=== PATIENT | female | born 1995 | race African-American/Black ===

== ENCOUNTER 2021-08-17 07:56 | Outpatient (REF) | payer OTHER, SELFPAY ==
[2021-08-17 09:41] LABS: MANUAL DIFF FLAG NO
[2021-08-17 10:08] LABS: Basophils Absolute Auto 0.1 X10*3/uL (0.0-0.2); Basophils Percent Auto 1.2 % (0-2); Eosinophils Absolute Auto 0.2 X10*3/uL (0.0-0.4); Eosinophils Percent Auto 3.7 % (0-4); Hematocrit 38.6 % (37.0-47.0); Hemoglobin 12.2 g/dl (12.0-16.0); Lymphocytes Percent Auto 49.6 % (20-40); Mean Corpuscular HGB Conc 31.6 g/dl (31.0-35.0); Mean Corpuscular Hemoglobin 26.9 pg (27.0-33.0); Mean Corpuscular Volume 85.2 fL (80.0-98.0); Mean Platelet Volume 9.3 fL (9.4-12.3); Monocytes Absolute Auto 0.3 X10*3/uL (0.1-1.2); Monocytes Percent Auto 8.2 % (2-11); Neutrophils Absolute Auto 1.5 x10*3/uL (2.0-8.3); Neutrophils Percent Auto 37.3 % (45-73); Platelet Count 295 X10*3/uL (160-400); Red Blood Count 4.53 X10*6/uL (4.20-5.50); Red Cell Distribution Width 13.5 % (11.0-16.0)
[2021-08-17 11:01] LABS: C Reactive Protein 1.18 mg/dL (< or = 0.50)
[2021-08-17 11:11] LABS: Erythrocyte Sedimentation Rate 18 MM/HR (0-20)
== END 2021-08-17 07:57 | disposition home or self-care (01) ==
LOC: HO.LAB 07:56
PROVIDERS: PCP Internal Medicine; Visit Provider Internal Medicine Rheumatology
DX: M65.9 Synovitis and tenosynovitis, unspecified (principal); M06.00 Rheumatoid arthritis without rheumatoid factor, unspecified site; Z79.899 Other long term (current) drug therapy
CPT/HCPCS: 36415; 85025; 85652; 86140; 99212

== ENCOUNTER → 2021-12-19 08:05 | Outpatient (BNVA) | payer OTHER, SELFPAY | PROVIDERS: PCP Internal Medicine; Visit Provider Internal Medicine Rheumatology | DX: M06.00 Rheumatoid arthritis without rheumatoid factor, unspecified site (principal); M65.9 Synovitis and tenosynovitis, unspecified; Z79.899 Other long term (current) drug therapy; G93.2 Benign intracranial hypertension | CPT/HCPCS: 20550; 99212 ==

== ENCOUNTER → 2022-06-21 08:36 | Outpatient (BNVA) | payer OTHER, SELFPAY | PROVIDERS: PCP Internal Medicine; Visit Provider Internal Medicine Rheumatology | DX: M06.00 Rheumatoid arthritis without rheumatoid factor, unspecified site (principal); Z79.899 Other long term (current) drug therapy | CPT/HCPCS: 99212 ==

== ENCOUNTER 2022-07-28 13:27 | Outpatient (REF) | payer OTHER, SELFPAY ==
--- NOTE | ~2022-07-28 | XR_ITS ---
EXAMINATION: XR HAND, RIGHT XR HAND, LEFT CLINICAL INFORMATION: Rheumatoid arthritis. COMPARISON: None available for comparison at the time of interpretation. TECHNIQUE: PA, oblique, and lateral views of the right and left hand. FINDINGS: Right Hand: No fracture or dislocation. Normal carpal alignment. No significant joint space narrowing or marginal osteophytes. No osseous erosion. No periarticular osteopenia. No abnormal soft tissue calcification. Left Hand: No fracture or dislocation. Normal carpal alignment. No significant joint space narrowing or marginal osteophytes. No osseous erosion. No periarticular osteopenia. No abnormal soft tissue calcification. XR/XR hand LT min 3V IMPRESSION: Unremarkable examination. No osseous erosion or periarticular osteopenia.
--- NOTE | ~2022-07-28 | XR_ITS ---
EXAMINATION: XR HAND, RIGHT XR HAND, LEFT CLINICAL INFORMATION: Rheumatoid arthritis. COMPARISON: None available for comparison at the time of interpretation. TECHNIQUE: PA, oblique, and lateral views of the right and left hand. FINDINGS: Right Hand: No fracture or dislocation. Normal carpal alignment. No significant joint space narrowing or marginal osteophytes. No osseous erosion. No periarticular osteopenia. No abnormal soft tissue calcification. Left Hand: No fracture or dislocation. Normal carpal alignment. No significant joint space narrowing or marginal osteophytes. No osseous erosion. No periarticular osteopenia. No abnormal soft tissue calcification. XR/XR hand RT min 3V IMPRESSION: Unremarkable examination. No osseous erosion or periarticular osteopenia.
--- NOTE | ~2022-07-28 | XR_ITS ---
EXAMINATION: XR CHEST CLINICAL INFORMATION: Rheumatoid arthritis. COMPARISON: None available. TECHNIQUE: 2 views of the chest were obtained. FINDINGS: The lungs are clear. The cardiomediastinal silhouette is normal in size. There is no pleural effusion or pneumothorax. No acute osseous abnormality. XR/XR chest 2V IMPRESSION: No acute cardiopulmonary findings.
[2022-07-28 13:50] LABS: MANUAL DIFF FLAG NO
[2022-07-28 15:19] LABS: Basophils Percent Auto 0.8 % (0-2); Eosinophils Absolute Auto 0.1 X10*3/uL (0.0-0.4); Eosinophils Percent Auto 3.1 % (0-4); Hematocrit 38.7 % (37.0-47.0); Hemoglobin 12.4 g/dl (12.0-16.0); Lymphocytes Absolute Auto 1.8 X10*3/uL (1.2-4.9); Lymphocytes Percent Auto 47.5 % (20-40); Mean Corpuscular Hemoglobin 27.4 pg (27.0-33.0); Mean Corpuscular Volume 85.6 fL (80.0-98.0); Mean Platelet Volume 9.2 fL (9.4-12.3); Monocytes Absolute Auto 0.3 X10*3/uL (0.1-1.2); Monocytes Percent Auto 7.3 % (2-11); Neutrophils Absolute Auto 1.6 x10*3/uL (2.0-8.3); Neutrophils Percent Auto 41.3 % (45-73); Platelet Count 339 X10*3/uL (160-400); Red Blood Count 4.52 X10*6/uL (4.20-5.50); Red Cell Distribution Width 13.4 % (11.0-16.0); White Blood Count 3.8 X10*3/uL (4.8-10.8)
[2022-07-28 16:20] LABS: Alanine Aminotransferase 26 U/L (0-31); Alkaline Phosphatase 65 U/L (39-117); Anion Gap 15 (12-20); Aspartate Amino Transferase 15 U/L (5-31); Bilirubin Total 0.7 mg/dL (0.0-1.0); Blood Urea Nitrogen 16 mg/dL (9-16); C Reactive Protein 1.57 mg/dL (< or = 0.50); Calcium 9.1 mg/dL (8.4-10.2); Carbon Dioxide 25 mmol/L (22-29); Chloride 105 mmol/L (96-108); Estimated Glomerular Filt Rate > 60; Glucose Random 68 mg/dL (60-115); Potassium 4.8 mmol/L (3.3-5.1); Sodium 140 mmol/L (135-145)
[2022-07-28 17:27] LABS: Erythrocyte Sedimentation Rate 18 MM/HR (0-20)
[2022-07-30 23:58] LABS: TS Negative Control Passed; TS Panel A 0; TS Panel B 0; TS Positive Control Passed; TSpotTB Negative (Negative)
[2022-07-31 11:41] LABS: HBS Num1 63.74 mIU/mL (0-7.99); HBsAGNum1 0.35 S/CO (0.00-0.99); Hepatitis B Core Antibody Nonreactive (Nonreactive); Hepatitis B Surface Antigen Negative (Negative); ~HepC Num1 0.12 S/CO (0.00-0.79); ~Hepatitis A Antibody IgM Nonreactive (Nonreactive); ~Hepatitis B Surface Antibody REACTIVE (Nonreactive); ~Hepatitis C Antibody Nonreactive (Nonreactive)
[2022-08-03 20:39] LABS: Glucose-6-Phosphate Dehydrogen 13.4 U/g Hgb (7.0-20.5)
== END 2022-07-28 13:28 | disposition home or self-care (01) ==
LOC: HO.XRAY 13:27
PROVIDERS: PCP Internal Medicine; Visit Provider Internal Medicine Rheumatology
DX: Z11.1 Encounter for screening for respiratory tuberculosis (principal); M06.00 Rheumatoid arthritis without rheumatoid factor, unspecified site; Z79.899 Other long term (current) drug therapy
CPT/HCPCS: 36415; 71046; 73130; 80053; 82955; 85025; 85652; 86140; 86481; 86704; 86706; 86709; 86803; 87340

== ENCOUNTER → 2022-08-29 11:08 | Outpatient (BNVA) | payer OTHER, SELFPAY | PROVIDERS: PCP Internal Medicine; Visit Provider Internal Medicine Rheumatology | DX: M06.00 Rheumatoid arthritis without rheumatoid factor, unspecified site (principal); Z79.899 Other long term (current) drug therapy | CPT/HCPCS: 99212 ==

== ENCOUNTER 2022-11-06 11:25 | Outpatient (REF) | payer OTHER, SELFPAY ==
[2022-11-06 11:57] LABS: MANUAL DIFF FLAG NO
[2022-11-06 12:13] LABS: Basophils Percent Auto 0.8 % (0-2); Eosinophils Absolute Auto 0.1 X10*3/uL (0.0-0.4); Eosinophils Percent Auto 2.8 % (0-4); Hematocrit 41.6 % (37.0-47.0); Hemoglobin 13.3 g/dl (12.0-16.0); Imm Gran Abs Auto 0.01 X10*3/uL (0.00-0.03); Imm Gran Pct Auto 0.3 % (0.0-0.4); Lymphocytes Absolute Auto 1.8 X10*3/uL (1.2-4.9); Lymphocytes Percent Auto 49.9 % (20-40); Mean Corpuscular Hemoglobin 27.1 pg (27.0-33.0); Mean Corpuscular Volume 84.9 fL (80.0-98.0); Monocytes Absolute Auto 0.3 X10*3/uL (0.1-1.2); Monocytes Percent Auto 7.8 % (2-11); Neutrophils Absolute Auto 1.4 x10*3/uL (2.0-8.3); Neutrophils Percent Auto 38.4 % (45-73); Platelet Count 293 X10*3/uL (160-400); Red Cell Distribution Width 14.1 % (11.0-16.0); White Blood Count 3.6 X10*3/uL (4.8-10.8)
[2022-11-06 13:04] LABS: Erythrocyte Sedimentation Rate 11 MM/HR (0-20)
[2022-11-06 13:06] LABS: Alanine Aminotransferase 31 U/L (0-31); Aspartate Amino Transferase 13 U/L (5-31); C Reactive Protein 0.93 mg/dL (< or = 0.50); Estimated Glomerular Filt Rate > 60
== END 2022-11-06 11:26 | disposition home or self-care (01) ==
LOC: HO.LAB 11:25
PROVIDERS: Visit Provider Internal Medicine Rheumatology
DX: M06.00 Rheumatoid arthritis without rheumatoid factor, unspecified site (principal); Z79.899 Other long term (current) drug therapy
CPT/HCPCS: 36415; 82565; 84450; 84460; 85025; 85652; 86140

== ENCOUNTER → 2022-11-09 10:28 | Outpatient (BNVA) | payer OTHER, SELFPAY | PROVIDERS: PCP Internal Medicine; Visit Provider Internal Medicine Rheumatology | DX: M06.00 Rheumatoid arthritis without rheumatoid factor, unspecified site (principal); Z79.899 Other long term (current) drug therapy | CPT/HCPCS: 99212 ==

== ENCOUNTER 2023-05-01 08:09 | Outpatient (AMB) | payer OTHER, SELFPAY ==
--- NOTE | 2023-05-01 08:12 | A.OFFVIS_ITS ---
Intake Vital Signs 05/01/23 08:18 Height 5 ft 4 in Weight 298 lb 8.094 oz BMI 51.2 BP 110/70 Blood Pressure Location Lt brachial Position Sitting Pulse 84 Pulse Source Pulse Oximeter Temp 97 F Temp Source Skin Pulse Oximetry (%) 99 Oxygen Delivery Method Room Air Intake Visit Reasons: Follow up Intake Note: Patient last seen 11/09/22, presents today for follow up and test results. Reports hand stiffness due to stopping medication during Covid back in January. Has resumed medications since then. 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 Accompanied by: Self / Same As Patient Allergies Penicillins Allergy (Severe, Verified 05/01/23 08:12) Anaphylaxis Medication List - Last Reconciled 05/01/23 by Edgar Pozo MD albuterol sulfate 90 mcg/actuation (Ventolin HFA) inhalation bupropion HCl 150 mg PO DAILY cetirizine (Allergy Relief (cetirizine)) 10 mg PO DAILY PRN dextroamphetamine-amphetamine 5 mg 1 tab PO BID folic acid 1 mg PO DAILY hydroxychloroquine 200 mg PO BID meloxicam 15 mg PO DAILY methotrexate sodium 10 mg (4 x 2.5 mg) PO QWEEK HPI HPI Comments History of Present Illness Details Patient returns for evaluation of her rheumatoid arthritis. Presently she is taking hydroxychloroquine 200 mg b.i.d., meloxicam 15 mg daily, methotrexate 10 mg weekly and folic acid 1 mg daily. Back in late January she developed respiratory symptoms and was diagnosed with COVID. She said she had fairly frequent coughing and nasal congestion. She ended up holding her methotrexate doses for about 3 weeks. While she had the COVID the joints felt quite good but then as the COVID waned she had more joint pain particularly involving stiffness in the hands. There may been some hand swelling. She restarted the methotrexate back in late February. She said her joint symptoms have been improving again but she still has occasional stiffness in the fingers. There is no triggering or numbness in the hands. She did have a flare of her asthma that gave her a continued dry cough but it is improving. She uses of p.r.n. albuterol inhaler at this point. There is no sputum production or shortness of breath. [facility] Medical History Flexor tenosynovitis of finger Flexor tenosynovitis of thumb group home use of drug Seronegative rheumatoid arthritis Surgical History H/O wisdom tooth extraction Family History Mother TTP (thrombotic thrombocytopenic purpura) Father Hypertension Social History Household Members: Significant Other Housing: House Are you a primary special needs child caregiver to a significant other at home: No Do you presently have visiting nurse or other home services: No Alcohol intake: current Alcohol intake frequency: a few times a month Alcohol type: beer and hard liquor e-Cigarette/Vaping Use: Never Used service: No Current occupational status: employed Current occupation: [employer] Review of Systems Const Details: Negative for appetite change, weight change, fever, chills, malaise and fatigue Eyes Details: Negative for vision change, dry eyes,headaches and dizziness ENT Details: Negative for hearing change, tinnitus, oral ulcer, nose bleeds and oral dryness. Card Details: Negative chest pain, edema and syncope Resp Details: Still occasional dry cough but no wheezing. Negative for SOB, sputum production and wheezing GI Details: Some discomfort with pressure on the abdomen but this is a longstanding symptom. Negative indigestion/heartburn, nausea, abdominal pain, bowel changes, diarrhea, constipation and bloody stool. Endo Details: Negative for polyuria and polydypsia Shaheen/Lymph Details: Negative for excessive bruising or bleeding. Physical Exam Vital Signs: Last Vital Signs Temp 97 F 05/01/23 08:18 Pulse 84 05/01/23 08:18 BP 110/70 05/01/23 08:18 Pulse Ox 99 05/01/23 08:18 Oxygen Delivery Method Room Air 05/01/23 08:18 BMI result Body Mass Index 51.2 APPEARANCE: Patient in no acute distress EYES no redness, pupils equal and reactive to light, eyelids normal EARS: External ear normal, canal clear and tympanic membrane normal. NOSE/SINUS: Airflow through both nares, no nasal discharge, no bleeding THROAT: Oral mucosa moist, no ulcerations NECK: No thyromegaly or masses, no adenopathy, trachea midline. HEART: Regulrar rhythm, S1-S2 heard, no murmurs, rubs or gallops. LUNG: Clear to percussion and auscultation EXTREMITIES: No edema, no calf tenderness, normal peripheral pulses. JOINT EXAM: Cervical Spine:? Full range of motion without pain; no tenderness. Thoracic Spine:.? No scoliosis.? No tenderness on palpation. Lumbar Spine:.? Alignment normal.? Full range of motion without pain, no tenderness. Chest Wall:.? No tenderness, swelling, increased warmth or erythema. Hands:? Right:? There is no swelling or MCP tenderness. ? There is flexor tendon tenderness, triggering,or swelling.? There is slight thickening of the 2nd and 3rd PIP joints with no tenderness of the PIP joints.? Left:? No swelling or tenderness in the MCP joints.? There is slight thickening at the 2nd through 4th PIP is without tenderness. Elsewhere there is no triggering, flexor tendon tenderness, soft tissue swelling or tenderness. And 3rd Wrists:? Right:? No pain with flexion or extension at 75 degrees with no tenderness.? No swelling.? Left:Normal pain-free range of motion without tenderness, swelling, increased warmth or erythema. Elbows:. Normal pain-free range of motion without tenderness, swelling, increased warmth or erythema. Shoulders:.?? Full range of motion without pain. No tenderness, weakness, swelling, increased warmth or erythema. Hips:.? Full range of motion without pain. Hip bursa:.? No tenderness. Knees:? Right:?? Normal pain-free range of motion with mild patellofemoral crepitus but no tenderness, effusion, soft tissue swelling, increased warmth or erythema.? Left: No pain with extremes of flexion extension with no tenderness, swelling, effusion or crepitation Ankles:.? Normal pain-free range of motion without tenderness, swelling, increased warmth or erythema. Feet:.? Right:? no tenderness in the instep without swelling.? There is pes planus deformity evident. No other areas of swelling or tenderness.? Left:? Pes planus deformity is evident.? Normal pain-free range of motion without tenderness, swelling, increased warmth or erythema. Tender points:? No tenderness to digital palpation at the occiput, trapezius, second rib, lateral epicondyle, knees, greater trochanter and gluteal area bilaterally. Results Reviewed Results Reviewed: Laboratory Tests 11/06/22 11:56 WBC 3.6 L Hgb 13.3 ESR 11 Creatinine 0.87 AST 13 ALT 31 C-Reactive Protein 0.93 H Assessment & Plan Assessment & Plan (1) Seronegative rheumatoid arthritis: Comment: hydroxychloroquine started fall 2020 - optic nerve swelling seen - ? [facility]? Eye exam stable without toxicity evident May 2022. 07/2022: Methotrexate started Code(s): M06.00 - Rheumatoid arthritis without rheumatoid factor, unspecified site (2) group home use of drug: Code(s): Z79.899 - Other buttermaker continuous churn (current) drug therapy Plan Rheumatoid arthritis with I think good control of synovitis with current treatment. She did have a flare-up, as expected, after she had held the methotrexate for a few weeks but it seems to be improving as she got back on her medication. She does not seem to have any side effects with the meds but she has not had lab work in a number of months. I asked her to get the lab work today. Assuming that is okay we will continue with current treatment. A follow-up in 4 months was recommended. Orders: Orders Aspartate Amino Transferase Today M06.00 - Rheumatoid arthritis without rheumatoid factor, unspecified site, Z79.899 - Other [facility] (current) drug therapy Creatinine Today M06.00 - Rheumatoid arthritis without rheumatoid factor, unspecified site, Z79.899 - Other buttermaker continuous churn (current) drug therapy Erythrocyte Sedimentation Rate 1 Month M06.00 - Rheumatoid arthritis without rheumatoid factor, unspecified site Alanine Aminotransferase Today M06.00 - Rheumatoid arthritis without rheumatoid factor, unspecified site, Z79.899 - Other [facility] (current) drug therapy Aspartate Amino Transferase Today M06.00 - Rheumatoid arthritis without rheumatoid factor, unspecified site, Z79.899 - Other buttermaker continuous churn (current) drug therapy Complete Blood Count Auto Diff 1 Month M06.00 - Rheumatoid arthritis without rheumatoid factor, unspecified site, Z79.899 - Other buttermaker continuous churn (current) drug therapy Erythrocyte Sedimentation Rate Today M06.00 - Rheumatoid arthritis without rheumatoid factor, unspecified site C Reactive Protein Today M06.00 - Rheumatoid arthritis without rheumatoid factor, unspecified site Alanine Aminotransferase Today M06.00 - Rheumatoid arthritis without rheumatoid factor, unspecified site, Z79.899 - Other [facility] (current) drug therapy Complete Blood Count Auto Diff Today M06.00 - Rheumatoid arthritis without rheumatoid factor, unspecified site, Z79.899 - Other buttermaker continuous churn (current) drug therapy C Reactive Protein 1 Month M06.00 - Rheumatoid arthritis without rheumatoid factor, unspecified site Creatinine Today M06.00 - Rheumatoid arthritis without rheumatoid factor, unspecified site, Z79.899 - Other buttermaker continuous churn (current) drug therapy Medications: Refilled hydroxychloroquine 200 mg PO BID 180 tabs 1RF M06.00 - Rheumatoid arthritis without rheumatoid factor, unspecified site folic acid 1 mg PO DAILY 90 tabs 1RF M06.00 - Rheumatoid arthritis without rheumatoid factor, unspecified site Coding Level of Care Code Est Pt Level 3 (53671) Diagnoses Seronegative rheumatoid arthritis M06.00 group home use of drug Z79.899
[2023-05-01 08:18] VITALS: BP 110/70; PULSE 84; TEMP 36.1; O2SAT 99; BMI 51.2
== END 2023-05-01 08:42 | disposition home or self-care (01) ==
PROVIDERS: PCP Internal Medicine; Visit Provider Internal Medicine Rheumatology
DX: M06.00 Rheumatoid arthritis without rheumatoid factor, unspecified site (principal); Z79.899 Other long term (current) drug therapy
CPT/HCPCS: 99213

== ENCOUNTER → 2023-05-01 08:09 | Outpatient (BNVA) | payer OTHER, SELFPAY | PROVIDERS: PCP Internal Medicine; Visit Provider Internal Medicine Rheumatology | DX: M06.00 Rheumatoid arthritis without rheumatoid factor, unspecified site (principal); Z79.899 Other long term (current) drug therapy | CPT/HCPCS: 99212 ==

== ENCOUNTER 2023-05-01 08:51 | Outpatient (REF) | payer OTHER, SELFPAY ==
[2023-05-01 10:48] LABS: MANUAL DIFF FLAG NO
[2023-05-01 10:52] LABS: Basophils Percent Auto 1.2 % (0-2); Eosinophils Percent Auto 6.9 % (0-4); Hematocrit 39.4 % (37.0-47.0); Hemoglobin 12.5 g/dl (12.0-16.0); Lymphocytes Absolute Auto 2.2 X10*3/uL (1.2-4.9); Lymphocytes Percent Auto 53.5 % (20-40); Mean Corpuscular HGB Conc 31.7 g/dl (31.0-35.0); Mean Corpuscular Hemoglobin 27.7 pg (27.0-33.0); Mean Corpuscular Volume 87.2 fL (80.0-98.0); Monocytes Absolute Auto 0.3 X10*3/uL (0.1-1.2); Monocytes Percent Auto 7.7 % (2-11); Neutrophils Absolute Auto 1.2 x10*3/uL (2.0-8.3); Neutrophils Percent Auto 30.7 % (45-73); Platelet Count 293 X10*3/uL (160-400); Red Blood Count 4.52 X10*6/uL (4.20-5.50); Red Cell Distribution Width 13.3 % (11.0-16.0)
[2023-05-01 10:53] LABS: Basophils Absolute Auto 0.1 X10*3/uL (0.0-0.2); Eosinophils Absolute Auto 0.3 X10*3/uL (0.0-0.4)
[2023-05-01 11:07] LABS: Alanine Aminotransferase 26 U/L (0-31); Aspartate Amino Transferase 14 U/L (5-31); C Reactive Protein 0.95 mg/dL (< or = 0.50); Estimated Glomerular Filt Rate > 60
[2023-05-01 11:33] LABS: Erythrocyte Sedimentation Rate 13 MM/HR (0-20)
== END 2023-05-01 08:52 | disposition home or self-care (01) ==
LOC: HO.10HDL 08:51
PROVIDERS: Visit Provider Internal Medicine Rheumatology
DX: M06.00 Rheumatoid arthritis without rheumatoid factor, unspecified site (principal); Z79.899 Other long term (current) drug therapy
CPT/HCPCS: 36415; 82565; 84450; 84460; 85025; 85652; 86140

== ENCOUNTER 2023-07-21 10:55 | Outpatient (REF) | payer OTHER, SELFPAY ==
[2023-07-21 11:12] LABS: MANUAL DIFF FLAG NO
[2023-07-21 11:28] LABS: Basophils Percent Auto 0.9 % (0-2); Eosinophils Absolute Auto 0.1 X10*3/uL (0.0-0.4); Eosinophils Percent Auto 3.7 % (0-4); Hemoglobin 12.5 g/dl (12.0-16.0); Imm Gran Abs Auto 0.01 X10*3/uL (0.00-0.03); Imm Gran Pct Auto 0.3 % (0.0-0.4); Lymphocytes Absolute Auto 1.8 X10*3/uL (1.2-4.9); Lymphocytes Percent Auto 49.9 % (20-40); Mean Corpuscular HGB Conc 32.1 g/dl (31.0-35.0); Mean Corpuscular Hemoglobin 27.8 pg (27.0-33.0); Mean Corpuscular Volume 86.7 fL (80.0-98.0); Mean Platelet Volume 9.3 fL (9.4-12.3); Monocytes Absolute Auto 0.3 X10*3/uL (0.1-1.2); Monocytes Percent Auto 8.3 % (2-11); Neutrophils Absolute Auto 1.3 x10*3/uL (2.0-8.3); Neutrophils Percent Auto 36.9 % (45-73); Platelet Count 290 X10*3/uL (160-400); Red Cell Distribution Width 14.1 % (11.0-16.0); White Blood Count 3.5 X10*3/uL (4.8-10.8)
[2023-07-21 12:07] LABS: Erythrocyte Sedimentation Rate 6 MM/HR (0-20)
[2023-07-21 12:24] LABS: Alanine Aminotransferase 31 U/L (0-31); Aspartate Amino Transferase 14 U/L (5-31); C Reactive Protein 0.54 mg/dL (< or = 0.50); Estimated Glomerular Filt Rate > 60
== END 2023-07-21 10:56 | disposition home or self-care (01) ==
LOC: HO.LAB 10:55
PROVIDERS: PCP Internal Medicine; Visit Provider Internal Medicine Rheumatology
DX: M06.00 Rheumatoid arthritis without rheumatoid factor, unspecified site (principal); Z79.899 Other long term (current) drug therapy
CPT/HCPCS: 36415; 82565; 84450; 84460; 85025; 85652; 86140

== ENCOUNTER 2023-08-02 08:45 | Outpatient (AMB) | payer OTHER, SELFPAY ==
[2023-08-02 08:46] VITALS: BP 122/60; PULSE 68; TEMP 36.5; O2SAT 100; BMI 48.1
--- NOTE | 2023-08-02 08:46 | MHC.OFFVIS ---
Intake Vital Signs 08/02/23 08:46 Height 5 ft 4 in Weight 280 lb 3.32 oz BMI 48.1 BP 122/60 Blood Pressure Location Rt radial Pulse 68 Pulse Source Pulse Oximeter Temp 97.7 F Temp Source Skin Pulse Oximetry (%) 100 Oxygen Delivery Method Room Air Intake Visit Reasons: RA/CONFIRMED Intake Note: Patient last seen 05/01/[address] Pozo, presents today for follow up and test results. Coatings Inspector Required: No Accompanied by: Self / Same As Patient Allergies Penicillins Allergy (Severe, Verified 08/02/23 08:48) Anaphylaxis HPI HPI Comments History of Present Illness Details Ms. Mcclellan 27-year-old female returns for evaluation of her rheumatoid arthritis. 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 She goes to gym in the mornings 5 times a week before she goes to work. Presently she is taking hydroxychloroquine 200 mg b.i.d., meloxicam 15 mg daily, methotrexate 10 mg weekly and folic acid 1 mg daily. She continues with swelling and stiffness to some of her fingers in the mornings. They do get less stiff by the time she gets to the gym usually within 2-3 hours. 05/01/[address] Pozo: Ms. Mcclellan 27-year-old female returns for evaluation of her rheumatoid arthritis. Presently she is taking hydroxychloroquine 200 mg b.i.d., meloxicam 15 mg daily, methotrexate 10 mg weekly and folic acid 1 mg daily. Back in late January she developed respiratory symptoms and was diagnosed with COVID. She said she had fairly frequent coughing and nasal congestion. She ended up holding her methotrexate doses for about 3 weeks. While she had the COVID the joints felt quite good but then as the COVID waned she had more joint pain particularly involving stiffness in the hands. There may been some hand swelling. She restarted the methotrexate back in late February. She said her joint symptoms have been improving again but she still has occasional stiffness in the fingers. There is no triggering or numbness in the hands. She did have a flare of her asthma that gave her a continued dry cough but it is improving. She uses of p.r.n. albuterol inhaler at this point. There is no sputum production or shortness of breath. 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 use of drug Flexor tenosynovitis of thumb Seronegative rheumatoid arthritis Surgical History H/O wisdom tooth extraction Family History Mother TTP (thrombotic thrombocytopenic purpura) Father Hypertension Social History Household Members: Significant Other Housing: House Are you a primary healthcare management to a significant other at home: No Do you presently have visiting nurse or other home services: No 75 years or older and lives alone: No Alcohol intake: current Alcohol intake frequency: a few times a month Alcohol type: beer and hard liquor e-Cigarette/Vaping Use: Never Used service: No Current occupational status: employed 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 NOSE/SINUS: Airflow through both nares, no nasal discharge, no bleeding THROAT: Oral mucosa moist, no ulcerations NECK: No thyromegaly or masses, no adenopathy, trachea midline. HEART: Regulrar rhythm, S1-S2 heard, no murmurs, rubs or gallops. LUNG: Clear to percussion and auscultation EXTREMITIES: No edema, no calf tenderness, normal peripheral pulses. JOINT EXAM: Cervical Spine:? Full range of motion without pain; no tenderness. Thoracic Spine:.? No scoliosis.? No tenderness on palpation. Lumbar Spine:.? Alignment normal.? Full range of motion without pain, no tenderness. Chest Wall:.? No tenderness, swelling, increased warmth or erythema. Hands:? Right:? There is no swelling or MCP tenderness. ? There is flexor tendon tenderness, triggering,or swelling.? There is slight thickening of the 2nd and 3rd PIP joints with no tenderness of the PIP joints.? Left:? No swelling or tenderness in the MCP joints.? There is slight thickening at the 2nd through 4th PIP is without tenderness. Elsewhere there is no triggering, flexor tendon tenderness, soft tissue swelling or tenderness. And 3rd Wrists:? Right:? No pain with flexion or extension at 75 degrees with no tenderness.? No swelling.? Left:Normal pain-free range of motion without tenderness, swelling, increased warmth or erythema. Elbows:. Normal pain-free range of motion without tenderness, swelling, increased warmth or erythema. Shoulders:.?? Full range of motion without pain. No tenderness, weakness, swelling, increased warmth or erythema. Hips:.? Full range of motion without pain. Hip bursa:.? No tenderness. Knees:? Right:?? Normal pain-free range of motion with mild patellofemoral crepitus but no tenderness, effusion, soft tissue swelling, increased warmth or erythema.? Left: No pain with extremes of flexion extension with no tenderness, swelling, effusion or crepitation Ankles:.? Normal pain-free range of motion without tenderness, swelling, increased warmth or erythema. Feet:.? Right:? no tenderness in the instep without swelling.? There is pes planus deformity evident. No other areas of swelling or tenderness.? Left:? Pes planus deformity is evident.? Normal pain-free range of motion without tenderness, swelling, increased warmth or erythema. Tender points:? No tenderness to digital palpation at the occiput, trapezius, second rib, lateral epicondyle, knees, greater trochanter and gluteal area bilaterally. Results Reviewed Results Reviewed: Laboratory Tests 11/06/22 11:56 WBC 3.6 L Hgb 13.3 ESR 11 Creatinine 0.87 AST 13 ALT 31 C-Reactive Protein 0.93 H Laboratory Tests 07/21/23 11:11 WBC 3.5 L RBC 4.50 Hgb 12.5 Hct 39.0 ESR 6 AST 14 ALT 31 C-Reactive Protein 0.54 H Laboratory Tests 05/01/23 05/01/23 07/21/23 09:00 09:00 11:11 WBC 4.0 L RBC 4.52 Hgb 12.5 Hct 39.4 ESR 13 Creatinine 0.86 0.87 Estimated GFR > 60 AST ALT C-Reactive Protein 07/21/23 11:11 WBC RBC Hgb Hct ESR Creatinine Estimated GFR > 60 AST 14 ALT 31 C-Reactive Protein 0.54 H Assessment & Plan Assessment & Plan (1) Seronegative rheumatoid arthritis: Comment: hydroxychloroquine started fall 2020 - optic nerve swelling seen - ? ICH? Eye exam stable without toxicity evident May 2022. 07/2022: Methotrexate started Code(s): M06.00 - Rheumatoid arthritis without rheumatoid factor, unspecified site (2) long term care social worker use of drug: Code(s): Z79.899 - Other long term care social worker (current) drug therapy (3) Flexor tenosynovitis of finger: Code(s): M65.9 - Synovitis and tenosynovitis, unspecified (4) long term care social worker current use of non-steroidal anti-inflammatories (NSAID): Code(s): Z79.1 - long term care social worker (current) use of non-steroidal anti-inflammatories (NSAID) Plan #SeroNeg RA/Flexor Tenosynovitis of fingers:For the Rheumatoid arthritis I think there is room for improvement with current treatment. I will increase her methotrexate to 6 pills from 4 pills and reassess in 4 months if the tenderness and swelling to the hand joints have improved. She does not seem to have any side effects with the meds. We will continue the hydroxychloroquine 200 mg b.i.d. and meloxicam 15 mg daily. #Skilled Nursing Use: We will obtain lab for CBC and CMP 1 week before next visit. Patient knows to hold her methotrexate in the event of fever, infections, surgeries, nonhealing wounds. She is aware of the possible side effects of methotrexate to include but not limited to hair loss, cytopenia, liver toxicity and teratogenicity. The patient denies any plans to get . A follow-up in 4 months I spent 25 minutes reviewing chart, evaluating patient, documenting. Orders: Orders Complete Blood Count Auto Diff Today M06.00 - Rheumatoid arthritis without rheumatoid factor, unspecified site, M65.9 - Synovitis and tenosynovitis, unspecified, Z79.899 - Other [facility] (current) drug therapy Erythrocyte Sedimentation Rate Today M06.00 - Rheumatoid arthritis without rheumatoid factor, unspecified site, M65.9 - Synovitis and tenosynovitis, unspecified, Z79.899 - Other long term care social worker (current) drug therapy Comprehensive Met. Panel Today M06.00 - Rheumatoid arthritis without rheumatoid factor, unspecified site, M65.9 - Synovitis and tenosynovitis, unspecified, Z79.899 - Other [facility] (current) drug therapy C Reactive Protein Today M06.00 - Rheumatoid arthritis without rheumatoid factor, unspecified site, M65.9 - Synovitis and tenosynovitis, unspecified, Z79.899 - Other [facility] (current) drug therapy Coding Level of Care Code Tele Est Pt Level 3 (80270) Diagnoses Seronegative rheumatoid arthritis M06.00 long term care social worker use of drug Z79.899 Flexor tenosynovitis of finger M65.9 [facility] current use of non-steroidal anti-inflammatories (NSAID) Z79.1
== END 2023-08-02 09:15 | disposition home or self-care (01) ==
PROVIDERS: Visit Provider Nurse Practitioner Family
DX: M06.00 Rheumatoid arthritis without rheumatoid factor, unspecified site (principal); Z79.899 Other long term (current) drug therapy; M65.9 Synovitis and tenosynovitis, unspecified; Z79.1 Long term (current) use of non-steroidal anti-inflammatories (NSAID)
CPT/HCPCS: 99213

== ENCOUNTER → 2023-08-02 08:45 | Outpatient (BNVA) | payer OTHER, SELFPAY | PROVIDERS: Visit Provider Nurse Practitioner Family ==

== ENCOUNTER 2023-12-12 09:02 | Outpatient (REF) | payer OTHER, SELFPAY ==
[2023-12-12 09:19] LABS: MANUAL DIFF FLAG NO
[2023-12-12 09:53] LABS: Basophils Percent Auto 0.6 % (0-2); Eosinophils Absolute Auto 0.2 X10*3/uL (0.0-0.4); Eosinophils Percent Auto 5.8 % (0-4); Hematocrit 38.2 % (37.0-47.0); Hemoglobin 12.3 g/dl (12.0-16.0); Lymphocytes Absolute Auto 1.5 X10*3/uL (1.2-4.9); Mean Corpuscular HGB Conc 32.2 g/dl (31.0-35.0); Mean Corpuscular Hemoglobin 28.3 pg (27.0-33.0); Mean Corpuscular Volume 87.8 fL (80.0-98.0); Mean Platelet Volume 9.2 fL (9.4-12.3); Monocytes Absolute Auto 0.3 X10*3/uL (0.1-1.2); Monocytes Percent Auto 8.3 % (2-11); Neutrophils Absolute Auto 1.3 x10*3/uL (2.0-8.3); Neutrophils Percent Auto 39.3 % (45-73); Platelet Count 293 X10*3/uL (160-400); Red Blood Count 4.35 X10*6/uL (4.20-5.50); Red Cell Distribution Width 13.4 % (11.0-16.0); White Blood Count 3.3 X10*3/uL (4.8-10.8)
[2023-12-12 10:13] LABS: Alanine Aminotransferase 29 U/L (0-31); Alkaline Phosphatase 53 U/L (39-117); Anion Gap 10 (12-20); Aspartate Amino Transferase 14 U/L (5-31); Bilirubin Total 0.2 mg/dL (0.0-1.0); Blood Urea Nitrogen 22 mg/dL (9-16); C Reactive Protein 0.56 mg/dL (< or = 0.50); Calcium 9.3 mg/dL (8.4-10.2); Carbon Dioxide 26 mmol/L (22-29); Chloride 108 mmol/L (96-108); Estimated Glomerular Filt Rate > 60; Glucose Random 78 mg/dL (60-115); Potassium 4.1 mmol/L (3.3-5.1); Sodium 140 mmol/L (135-145); Total Protein 6.9 g/dL (6.5-8.0)
[2023-12-12 14:56] LABS: Erythrocyte Sedimentation Rate 9 MM/HR (0-20)
== END 2023-12-12 09:03 | disposition home or self-care (01) ==
LOC: HO.LAB 09:02
PROVIDERS: PCP Internal Medicine; Visit Provider Nurse Practitioner Family
DX: M06.00 Rheumatoid arthritis without rheumatoid factor, unspecified site (principal); M65.9 Synovitis and tenosynovitis, unspecified; Z79.899 Other long term (current) drug therapy
CPT/HCPCS: 36415; 80053; 85025; 85652; 86140

== ENCOUNTER 2024-04-11 09:04 | Emergency (ER) | payer OTHER, SELFPAY ==
[2024-04-11 09:19] VITALS: BP 139/91; PULSE 76; RESP 16; TEMP 36.7; O2SAT 100; BMI 43.8
--- NOTE | 2024-04-11 10:05 | ED.GENADULT ---
HPI - General Adult General Chief complaint: General Medical Stated complaint: Med Refill For RA Time Seen by Provider: 04/11/24 10:05 Source: patient and old records reviewed Mode of arrival: ambulatory Limitations: no limitations History of Present Illness ED Provider: NEDA RENDON narrative: 28 yo female with PMH of RA on plaquenil, methotrexate and chronic meloxicam. She has no issues with her kidneys no GIB hx or symptoms. She is here asking for her medications as the R hand is more painful and swollen and R knee. No fevers. She has been out of the meloxicam for 1 week. MD complaint: joint pain Onset (ago): week(s) (1) Location: right, upper extremity and lower extremity Radiation: non-radiation Severity: moderate Quality: aching Pain Consistency: constant Relieving factors: immobilization Exacerbating factors: movement Associated symptoms: denies other symptoms Treatments prior to arrival: none Related Data Home Medications ?Medication ?Instructions ?Recorded ?Confirmed cetirizine 10 mg tablet (Allergy 10 mg PO DAILY PRN 08/17/21 05/01/23 Relief (cetirizine)) albuterol sulfate 90 mcg/actuation inhalation 02/14/23 05/01/23 aerosol inhaler (Ventolin HFA) bupropion HCl 150 mg 24 hr tablet, 150 mg PO QAM 08/02/23 extended release bupropion HCl 300 mg 24 hr tablet, 300 mg PO DAILY 08/02/23 extended release Previous Rx's ?Medication ?Instructions ?Recorded meloxicam 15 mg tablet 15 mg PO DAILY #30 tabs 01/07/24 folic acid 1 mg tablet 1 mg PO DAILY #90 tabs 02/22/24 hydroxychloroquine 200 mg tablet 200 mg PO BID #180 tabs 02/22/24 methotrexate sodium 2.5 mg tablet 15 mg (6 x 2.5 mg) PO QWEEK #72 02/22/24 tabs meloxicam 15 mg tablet 15 mg PO DAILY #30 tabs 04/11/24 Allergies Allergy/AdvReac Type Severity Reaction Status Date / Time Penicillins Allergy Severe Anaphylaxis Verified 04/11/24 09:20 Review of Systems Review of Systems: Constitutional : No Fever, No Chills ENT/Mouth : No Ear Pain, No Hoarseness, No sore throat Eyes: No Eye Pain, No Swelling, No Redness, No Foreign Body Cardiovascular : No Chest Pain, No SOB Respiratory : No Cough, No Dyspnea Gastrointestinal : No Nausea, No Vomiting, No Diarrhea, No abdominal Pain Genitourinary : No Dysuria, No Hematuria Musculoskeletal : positive joint pain, No Myalgias, No Joint Swelling Skin : No Skin lacerations, No rash Neuro : No Weakness, No Numbness All other systems reviewed and are negative PMFSH Past Medical History Attestation statement: The following information was validated with the patient. Source: old records reviewed Medical History shelter current use of non-steroidal anti-inflammatories (NSAID) Flexor tenosynovitis of finger technician terminal and repeater use of drug Flexor tenosynovitis of thumb Seronegative rheumatoid arthritis Surgical History H/O wisdom tooth extraction Family History Family History Mother TTP (thrombotic thrombocytopenic purpura) Father Hypertension Social History Social History Household Members: Significant Other Housing: House Are you a primary career law clerk to a significant other at home: No Do you presently have visiting nurse or other home services: No Alcohol intake: current Alcohol intake frequency: a few times a month Alcohol type: beer and hard liquor e-Cigarette/Vaping Use: Never Used Do you have a plan to hurt others: No Plan service: No Current occupational status: employed 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 Oriented X3. No acute distress. Eyes: Pupils equal, round and reactive to light. ENT: Pharynx normal. Neck: Normal inspection. CVS: Pulses normal. Respiratory: No respiratory distress. Abdomen: atraumatic. Skin: Skin warm and dry. Normal skin color. Extremities: R knee mild swelling R hand mild swelling no erythema noted Neuro: Oriented X 3. No motor deficit. No sensory deficit. Medical Decision Making Medical Decision Making MDM Narrative: 28 yo female with PMH of RA on plaquenil, methotrexate and chronic meloxicam here with worsening joint pain but no signs of infection ran out of meloxicam asking for Rx. She has no hx of GIB or renal issues. Start back on med and DC home Differential Diagnosis Differential Diagnoses: The differential diagnosis associated with the presentation includes RA, polyarthralgia External Record Review External record reviewed: Prior outpatient labs Prescription Management I considered prescription management with: Pain Medication Discharge Plan Discharge Clinical Impression: Medication refill Patient Disposition: Home, Self-Care Instructions: Medicine Refill (ED) Additional Instructions: please follow up with your doctor return for any worsening symptoms or concerns Prescriptions: New meloxicam 15 mg tablet 15 mg PO DAILY Qty: 30 1RF No Action meloxicam 15 mg tablet 15 mg PO DAILY Qty: 30 2RF folic acid 1 mg tablet 1 mg PO DAILY Qty: 90 1RF hydroxychloroquine 200 mg tablet 200 mg PO BID Qty: 180 1RF methotrexate sodium 2.5 mg tablet 15 mg PO QWEEK Qty: 72 0RF cetirizine [Allergy Relief (cetirizine)] 10 mg tablet 10 mg PO DAILY PRN albuterol sulfate [Ventolin HFA] 90 mcg/actuation HFA aerosol inhaler inhalation bupropion HCl 300 mg tablet extended release 24 hr 300 mg PO DAILY bupropion HCl 150 mg tablet extended release 24 hr 150 mg PO QAM Stand Alone Forms: Work/School Release Print Language: Finnish
[2024-04-11 10:24] VITALS: BP 139/91; PULSE 76; RESP 16; TEMP 36.7; O2SAT 100
== END 2024-04-11 10:24 | disposition home or self-care (01) ==
PROVIDERS: Emergency Provider Emergency Medicine; PCP Internal Medicine
DX: Z76.0 Encounter for issue of repeat prescription (principal); Z79.899 Other long term (current) drug therapy
CPT/HCPCS: 99282

== ENCOUNTER 2024-04-24 11:07 | Outpatient (REF) | payer OTHER, SELFPAY ==
[2024-04-24 12:09] LABS: MANUAL DIFF FLAG NO
[2024-04-24 12:22] LABS: Basophils Percent Auto 0.7 % (0-2); Eosinophils Absolute Auto 0.1 X10*3/uL (0.0-0.4); Eosinophils Percent Auto 2.2 % (0-4); Hematocrit 35.7 % (37.0-47.0); Hemoglobin 11.9 g/dl (12.0-16.0); Lymphocytes Absolute Auto 2.1 X10*3/uL (1.2-4.9); Lymphocytes Percent Auto 50.7 % (20-40); Mean Corpuscular HGB Conc 33.3 g/dl (31.0-35.0); Mean Corpuscular Volume 86.9 fL (80.0-98.0); Mean Platelet Volume 8.8 fL (9.4-12.3); Monocytes Absolute Auto 0.4 X10*3/uL (0.1-1.2); Monocytes Percent Auto 8.7 % (2-11); Neutrophils Absolute Auto 1.6 x10*3/uL (2.0-8.3); Neutrophils Percent Auto 37.7 % (45-73); Platelet Count 281 X10*3/uL (160-400); Red Blood Count 4.11 X10*6/uL (4.20-5.50); Red Cell Distribution Width 13.4 % (11.0-16.0); White Blood Count 4.1 X10*3/uL (4.8-10.8)
[2024-04-24 12:50] LABS: Alanine Aminotransferase 17 U/L (0-31); Albumin Level 4.1 g/dL (3.5-5.0); Alkaline Phosphatase 51 U/L (39-117); Anion Gap 10 (12-20); Aspartate Amino Transferase 16 U/L (5-31); Bilirubin Total 0.5 mg/dL (0.0-1.0); Blood Urea Nitrogen 15 mg/dL (9-16); C Reactive Protein 0.48 mg/dL (< or = 0.50); Calcium 9.6 mg/dL (8.4-10.2); Carbon Dioxide 29 mmol/L (22-29); Chloride 107 mmol/L (96-108); Estimated Glomerular Filt Rate > 60; Glucose Random 73 mg/dL (60-115); Potassium 4.2 mmol/L (3.3-5.1); Sodium 142 mmol/L (135-145); Total Protein 6.9 g/dL (6.5-8.0)
[2024-04-24 13:00] LABS: Erythrocyte Sedimentation Rate 7 MM/HR (0-20)
[2024-04-24 13:13] LABS: HBS Num1 48.22 mIU/mL (0-7.99); HBc Num1 0.09 S/CO (0.00-0.79); HBsAGNum1 0.49 S/CO (0.00-0.99); Hepatitis A Antibody IgM 0.22 Index (0-0.79); Hepatitis B Core Antibody Nonreactive (Nonreactive); Hepatitis B Surface Antigen Negative (Negative); ~HepC Num1 0.07 S/CO (0.00-0.79); ~Hepatitis A Antibody IgM Nonreactive (Nonreactive); ~Hepatitis B Surface Antibody REACTIVE (Nonreactive); ~Hepatitis C Antibody Nonreactive (Nonreactive)
[2024-04-27 04:59] LABS: TS Negative Control Passed; TS Panel A 0; TS Panel B 0; TS Positive Control Passed; TSpotTB Negative (Negative)
== END 2024-04-24 11:08 | disposition home or self-care (01) ==
LOC: HO.LAB 11:07
PROVIDERS: PCP Internal Medicine; Visit Provider Student in an Organized Health Care Education/Training Program
DX: M06.00 Rheumatoid arthritis without rheumatoid factor, unspecified site (principal); Z79.899 Other long term (current) drug therapy; Z11.7 Encounter for testing for latent tuberculosis infection; Z11.59 Encounter for screening for other viral diseases; Z79.1 Long term (current) use of non-steroidal anti-inflammatories (NSAID)
CPT/HCPCS: 36415; 80053; 85025; 85652; 86140; 86481; 86704; 86706; 86709; 86803; 87340; 99212

== ENCOUNTER 2024-04-24 11:07 | Outpatient (AMB) | payer OTHER, SELFPAY ==
--- NOTE | 2024-04-24 11:17 | A.OFFVIS_ITS ---
Vital Signs 04/24/24 11:20 Height 5 ft 4 in Weight 263 lb 7.238 oz BMI 45.2 BP 118/72 Blood Pressure Location Rt radial Position Sitting Respiration 16 Pulse 70 Pulse Source Pulse Oximeter Pulse Oximetry (%) 98 Oxygen Delivery Method Room Air Intake Visit Reasons: RA Intake Note: Patient presents for RA. Allergies Penicillins Allergy (Severe, Verified 04/24/24 11:19) Anaphylaxis Medication List - Last Reconciled 04/24/24 by Aren Castillo MD albuterol sulfate 90 mcg/actuation (Ventolin HFA) inhalation bupropion HCl XL 300 mg PO DAILY bupropion HCl XL 150 mg PO QAM cetirizine (Allergy Relief (cetirizine)) 10 mg PO DAILY PRN folic acid 1 mg PO DAILY hydroxychloroquine 200 mg PO BID meloxicam 15 mg PO DAILY meloxicam 15 mg PO DAILY methotrexate sodium 15 mg (6 x 2.5 mg) PO QWEEK 90 days HPI Comments Details: This is a 28-year-old female with seronegative RA who presents for follow-up. She was last seen in clinic 07/2023. Patient stated that she ran out of her [employer] ds around [facility], she was out for 2 weeks. She felt significant worsening of her joint pain. She went to the ER requesting refills, now she is back to her baseline. She is on hydroxychloroquine 200 mg Twice daily, methotrexate 15 mg once weekly, folic acid 1 mg daily and meloxicam 15 mg daily. She states that she continues to have multiple joint pains including her flexor tendons, her fingers, knuckles. Ankles. [facility] Medical History residential current use of non-steroidal anti-inflammatories (NSAID) Flexor tenosynovitis of finger superintendent terminal use of drug Flexor tenosynovitis of thumb Seronegative rheumatoid arthritis Surgical History H/O wisdom tooth extraction Family History Mother TTP (thrombotic thrombocytopenic purpura) Father Hypertension Social History Household Members: Significant Other Housing: House Are you a primary interior plant caretaker to a significant other at home: No Do you presently have visiting nurse or other home services: No 75 years or older and lives alone: No Alcohol intake: current Alcohol intake frequency: a few times a month Alcohol type: beer and hard liquor e-Cigarette/Vaping Use: Never Used service: No Current occupational status: employed 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 Review of Systems Musc Reports arthralgias, Reports joint swelling and Reports stiffness Physical Exam Vital Signs: Last Vital Signs Pulse 70 04/24/24 11:20 Resp 16 04/24/24 11:20 BP 118/72 04/24/24 11:20 Pulse Ox 98 04/24/24 11:20 Oxygen Delivery Method Room Air 04/24/24 11:20 BMI result Body Mass Index 45.2 Const General: cooperative, healthy appearing and comfortable Nutritional Appearance: obese morbidly obese Orientation/consciousness: patient oriented x3 Limitations: no limitations HEENT Head: Yes normocephalic and Yes atraumatic Mouth: moist mucous membranes Resp Effort & Inspection: normal respiratory effort and able to speak in complete sentences Auscultation: clear to auscultation bilaterally Cardio Rate: regular rate Rhythm: regular rhythm Skin General skin exam: no rashes or lesions noted Neuro General: patient oriented x3 Extrem Other: No wrist tenderness, swelling or pain with flexion-extension bilaterally Right 5th MCP swelling without tenderness Mild right 3rd MCP tenderness Right 4th PIP swelling and tenderness Right 3rd PIP tenderness Subtle triggering of multiple fingers of both hands Few tender flexor tendons bilaterally Left 3rd PIP swelling and tenderness Left 2nd PIP tenderness Number painful range of motion of elbows and shoulders Right ankle tenderness without much swelling Assessment & Plan Assessment & Plan (1) Seronegative rheumatoid arthritis: Comment: hydroxychloroquine started fall 2020 - optic nerve swelling seen - ? ICH? Eye exam stable without toxicity evident May 2022. 07/2022: Methotrexate started Code(s): M06.00 - Rheumatoid arthritis without rheumatoid factor, unspecified site Category: Medical Plan: This is a 28-year-old female with seronegative RA who presents for follow-up. She is on methotrexate 15 mg weekly, folic acid 1 mg daily, Hydroxychloroquine 200 mg Twice daily and meloxicam 15 mg daily She continues to have few swollen and tender joints Increase methotrexate to 25 mg once weekly split dose Continue hydroxychloroquine 200 mg Twice daily, folic acid 1 mg daily Advised patient to take meloxicam only as needed Labs today and before next visit in 3 months (2) superintendent terminal use of drug: Code(s): Z79.899 - Other chcf (current) drug therapy Category: Medical Plan: Monitor safety labs for methotrexate Discussed teratogenic effects of methotrexate. Patient states that she is not planning any . She is not sexually active with men (3) superintendent terminal current use of non-steroidal anti-inflammatories (NSAID): Code(s): Z79.1 - superintendent terminal (current) use of non-steroidal anti-inflammatories (NSAID) Category: Medical Plan: Discussed long-term side effects with chronic NSAID use such as GI nephro and cardiotoxicity. Advised patient to take meloxicam only as needed. Monitor safety labs Plan I spent 30 minutes reviewing patient's chart, evaluating patient, ordering diagnostic workup, counseling patient and documenting in the chart Orders: Orders Complete Blood Count Auto Diff 3 Months M06.00 - Rheumatoid arthritis without rheumatoid factor, unspecified site, Z79.899 - Other chcf (current) drug therapy Complete Blood Count Auto Diff Today M06.00 - Rheumatoid arthritis without rheumatoid factor, unspecified site, Z79.899 - Other intermediate accountant (current) drug therapy Comprehensive Met. Panel Today M06.00 - Rheumatoid arthritis without rheumatoid factor, unspecified site, Z79.899 - Other intermediate accountant (current) drug therapy Hepatitis A,B,C Profile Today Z11.59 - Encounter for screening for other viral diseases Comprehensive Met. Panel 3 Months M06.00 - Rheumatoid arthritis without rheumatoid factor, unspecified site, Z79.899 - Other chcf (current) drug therapy C Reactive Protein 3 Months M06.00 - Rheumatoid arthritis without rheumatoid factor, unspecified site, Z79.899 - Other intermediate accountant (current) drug therapy Erythrocyte Sedimentation Rate 3 Months M06.00 - Rheumatoid arthritis without rheumatoid factor, unspecified site, Z79.899 - Other chcf (current) drug therapy C Reactive Protein Today M06.00 - Rheumatoid arthritis without rheumatoid factor, unspecified site, Z79.899 - Other chcf (current) drug therapy Erythrocyte Sedimentation Rate Today M06.00 - Rheumatoid arthritis without rheumatoid factor, unspecified site, Z79.899 - Other intermediate accountant (current) drug therapy T Spot TB Today Z11.7 - Encounter for testing for latent tuberculosis infection Medications: Changed From methotrexate sodium 15 mg (6 x 2.5 mg) PO QWEEK 90 days 78 tabs 0RF M06.00 - Rheumatoid arthritis without rheumatoid factor, unspecified site To methotrexate sodium Split dose into 5 tabs twice 12-24 hours apart 25 mg (10 x 2.5 mg) PO QWEEK 120 tabs 0RF M06.00 - Rheumatoid arthritis without rheumatoid factor, unspecified site Coding Level of Care Code Est Pt Level 4 (69316) Complex EM visit Add On G2211 Diagnoses Seronegative rheumatoid arthritis M06.00 superintendent terminal use of drug Z79.899 superintendent terminal current use of non-steroidal anti-inflammatories (NSAID) Z79.1
[2024-04-24 11:20] VITALS: BP 118/72; PULSE 70; RESP 16; O2SAT 98; BMI 45.2
== END 2024-04-24 11:51 | disposition home or self-care (01) ==
PROVIDERS: PCP Internal Medicine; Visit Provider Student in an Organized Health Care Education/Training Program
DX: M06.00 Rheumatoid arthritis without rheumatoid factor, unspecified site (principal); Z79.899 Other long term (current) drug therapy; Z79.1 Long term (current) use of non-steroidal anti-inflammatories (NSAID)
CPT/HCPCS: 99214; G2211

== ENCOUNTER 2024-07-26 10:30 | Outpatient (REF) | payer OTHER, SELFPAY ==
--- OUTSIDE RECORDS SUMMARY | 2024-07-26 10:33 | XMS_ITS | Encounter Summary ---
Author Organization [facility] Address [address] [place] [address] Care Team Providers Care Screen Door Maker Name Role Phone Beverly Day MD Primary Care Provider [phone] Encounter Details Date Type Department Care Team Description 10/01/2019 Refill Allergy TILDEN [address] [place] [id number] Billie Torres MD Social History Tobacco Use Types Packs/Day Years Used Date Smoking Tobacco: Never Smokeless Tobacco: Never Alcohol Use Standard Drinks/Week Comments No 0 (1 standard drink = 0.6 oz pur e alcohol) Sex Assigned at Date Recorded Female 07/05/2021 10:27 AM EST Job Start Date Occupation Industry Not on file Not on file Not on file documented as of this encounter Miscellaneous Notes * Telephone Encounter - Carie Mcmullen - 10/01/2019 1:55 PM EDT Patient scheduled telehealth visit for 10/09/19 * Telephone Encounter - Nathaly Good M.A. - 10/01/2019 8:08 AM EDT Please schedule patient for follow up visit. She no showed her last appointment documented in this encounter Plan of Treatment Not on file documented as of this encounter Visit Diagnoses Not on filedocumented in this encounter Care Teams Screen Door Maker Relationship Specialty Start Date End Date Beverly Day MD [address] [place] [id number] PCP - General Internal Medicine 10/11/17 documented as of this encounter
--- OUTSIDE RECORDS SUMMARY | 2024-07-26 10:33 | XMS_ITS | Encounter Summary ---
Author Organization [facility] Address [address] [place] [address] Care Team Providers Care Automation Qa Tester Name Role Phone Beverly Day MD Primary Care Provider [phone] Reason for Visit * Reason Onset Date Comments Tinnitus 03/22/2020 Finger Problems 03/22/2020 refill request 03/22/2020 Encounter Details Date Type Department Care Team Description 03/22/2020 Telephone Adult Medicine [address] [id number] Beverly Day MD [address] [place] [address] [phone] Tinnitus; Finger Problems; refill request Social History Tobacco Use Types Packs/Day Years Used Date Smoking Tobacco: Never Smokeless Tobacco: Never Alcohol Use Standard Drinks/Week Comments No 0 (1 standard drink = 0.6 oz pur e alcohol) Sex Assigned at Date Recorded Female 07/05/2021 10:27 AM EST Job Start Date Occupation Industry Not on file Not on file Not on file COVID-19 Exposure Response Date Recorded In the last month, have you been in contact with someone who was confirmed or suspected to have Coronavirus / COVID-19? Unable to assess 03/22/2020 12:38 PM EST documented as of this encounter Miscellaneous Notes * Telephone Encounter - Denise Duval R.N. - 03/22/2020 9:47 AM EST [phone] (home) [phone] (work) * Telephone Encounter - Heike Nancy - 03/22/2020 8:48 AM EST Patient booked this appt with 3 different issues with Yolanda Jay for 2pm today Video appt Symptoms patient is presenting: Pulsating tinnitus and trigger fingers in my right hand. Also i need a refill on my antidepressants. documented in this encounter Plan of Treatment Not on file documented as of this encounter Visit Diagnoses Not on filedocumented in this encounter Care Teams Automation Qa Tester Relationship Specialty Start Date End Date Beverly Day MD [address] [place] [id number] PCP - General Internal Medicine 10/11/17 documented as of this encounter
--- OUTSIDE RECORDS SUMMARY | 2024-07-26 10:33 | XMS_ITS | Encounter Summary ---
Author Organization [facility] Address [address] [place] [address] Care Team Providers Care Table Maker Name Role Phone Beverly Day MD Primary Care Provider [phone] Encounter Details Date Type Department Care Team Description 06/21/2022 Pest Control Applicator Report Medical Records [address] [place] [address] Edgar Pozo MD Social History Tobacco Use Types Packs/Day [...] Exposure Response Date Recorded In the last 10 days, have daniella kessler been in contact with someone who was confirmed or suspected to have Coronavirus/COVID-19? No / Unsure 05/22/2022 11:04 AM EST documented as of this encounter Plan of Treatment Not on file documented as of this encounter Visit Diagnoses Not on filedocumented in this encounter Care Teams Table Maker Relationship Specialty Start Date End Date Beverly Day MD [address] [place] [address] [phone] PCP - General Internal Medicine 10/11/17 documented as of this encounter
--- OUTSIDE RECORDS SUMMARY | 2024-07-26 10:33 | XMS_ITS | Encounter Summary ---
Author Organization [facility] Address [address] [place] [address] Care Team Providers Care Bark Fitter Name Role Phone Beverly Day MD Primary Care Provider [phone] Encounter Details Date Type Department Care Team Description 05/26/2021 Old Medical Records Medical Records [address] [place] [id number] Abstract, Provider Social History Tobacco Use Types Packs/Day Years [...] or suspected to have Coronavirus / COVID-19? No / Unsure 05/04/2021 9:11 AM EST documented as of this encounter Plan of Treatment Not on file documented as of this encounter Visit Diagnoses Not on filedocumented in this encounter Care Teams Bark Fitter Relationship Specialty Start Date End Date Beverly Day MD [address] [place] [address] [phone] PCP - General Internal Medicine 10/11/17 documented as of this encounter
--- OUTSIDE RECORDS SUMMARY | 2024-07-26 10:33 | XMS_ITS | Encounter Summary ---
Author Organization [facility] Address [address] [place] [address] Care Team Providers Care Cardiac Cath Lab Manager Name Role Phone Beverly Day MD Primary Care Provider [phone] Encounter Details Date Type Department Care Team Description 08/02/2023 Logging Truck Driver Report Medical Records [address] [place] [id number] Leilani Garcia NP Social History Tobacco Use Types Packs/Day Years Used Date Smoking Tobacco: Never Smokeless Tobacco: Never Alcohol Use Standard Drinks/Week Comments No 0 (1 standard drink = 0.6 oz pur e alcohol) Sex Assigned at Date Recorded Female 07/05/2021 10:27 AM EST Job Start Date Occupation Industry Not on file Not on file Not on file documented as of this encounter Plan of Treatment Not on file documented as of this encounter Visit Diagnoses Not on filedocumented in this encounter Care Teams Cardiac Cath Lab Manager Relationship Specialty Start Date End Date Beverly Day MD [address] [place] [address] [phone] PCP - General Internal Medicine 10/11/17 documented as of this encounter
--- OUTSIDE RECORDS SUMMARY | 2024-07-26 10:33 | XMS_ITS | Encounter Summary ---
Author Organization [facility] Address [address] [place] [address] Care Team Providers Care Ceo Name Role Phone Beverly Day MD Primary Care Provider [phone] Reason for Visit * Reason Onset Date Comments Viscose Cellar Charge Hand Feedback 03/29/2020 Orthopedics Encounter Details Date Type Department Care Team Description 03/29/2020 Telephone Adult Medicine [address] [address] Lavonne Jay PA-C Viscose Cellar Charge Hand Feedback (Orthopedics) Social History Tobacco Use Types Packs/Day Years [...] encounter Miscellaneous Notes * Telephone Encounter - Lavonne Jay PA-C - 04/02/2020 4:40 PM EST Patient has completed her hand x-ray. Please route this to ortho so they can schedule a consult. Thank you * Telephone Encounter - Mariana Sibley M.A. - 03/29/2020 1:35 PM EST Left voicemail for pt to call back * Telephone Encounter - Lavonne Jay PA-C - 03/29/2020 8:47 AM EST Please contact this patient. She needs to complete her hand x-ray that I ordered during her telemedicine visit on 03/22 before an appointment with orthopedics can be made. She does not need an appointment, please just have her go right to radiology. Thank you * Telephone Encounter - Mary Thomason - 03/29/2020 8:41 AM EST Lavonne Cook You placed a orthopedics order a week ago and we can't book this orthopedics appointment because patient has not completed her X-ray that you placed. We have contacted the patient regarding this matter can you please have your clinical staff reach out to patient about her imaging being completed. Thank you Jaquelin Referral Surgical Endoscopist documented in this encounter Plan of Treatment Not on file documented as of this encounter Visit Diagnoses Not on filedocumented in this encounter Care Teams Ceo Relationship Specialty Start Date End Date Beverly Day MD [address] [place] [id number] PCP - General Internal Medicine 10/11/17 documented as of this encounter
--- OUTSIDE RECORDS SUMMARY | 2024-07-26 10:33 | XMS_ITS | Encounter Summary ---
Author Organization [facility] Address [address] [place] [address] Care Team Providers Care Medical Physicist Name Role Phone Beverly Day MD Primary Care Provider [phone] Reason for Visit * Reason Onset Date Comments My Chart Appointment 09/16/2020 Allergic Reaction 09/16/2020 Encounter Details Date Type Department Care Team Description 09/16/2020 Telephone Adult Medicine [address] [phone] Beverly Day MD [address] [place] [address] [phone] My Chart Appointment; Allergic Reaction Social History Tobacco Use Types Packs/Day Years [...] Telephone Encounter - Denise Duval R.N. - 09/23/2020 2:44 PM EDT I left a message for the patient to return my call. * Telephone Encounter - Shani Chamberlain - 09/23/2020 1:47 PM EDT Patient is scheduled for tomorrow - is this appt appropriate ?? Thanks! * Telephone Encounter - YUSEF Brian - 09/16/2020 4:02 PM EDT Likely need more information. Would be interested to know what symptoms patient is having that makeher concerned about a possible semen allergy. Would likely be better for her to be seen with FURNACE UTILITY OPERATOR sothey could do urine testing and perform pelvic exam, cultures if needed. * Telephone Encounter - Denise Duval R.N. - 09/16/2020 3:47 PM EDT Please review, I have called this patient to triage and will speak to her when she calls back,she has an appointment with you 09/24 made on my chart or a semen allergy Is this allergy something we would address or should she be referred back to her sales director provider ? * Telephone Encounter - Melinda Bernal - 09/16/2020 3:36 PM EDT Patient has scheduled a visit through My Chart. Please call patient to triage for appropriateness. Date appointment is booked: 09/24/2020 Appointment scheduled with Lilly Benjamin Reason for appointment: A possible semen allergy documented in this encounter Plan of Treatment Not on file documented as of this encounter Visit Diagnoses Not on filedocumented in this encounter Care Teams Medical Physicist Relationship Specialty Start Date End Date Beverly Day MD [address] [place] [address] PCP - General Internal Medicine 10/11/17 documented as of this encounter
--- OUTSIDE RECORDS SUMMARY | 2024-07-26 10:33 | XMS_ITS | Encounter Summary ---
Author Organization [facility] Address [address] [place] [address] Care Team Providers Care Napping Machine Operator Name Role Phone Beverly Day MD Primary Care Provider [phone] Encounter Details Date Type Department Care Team Description 04/11/2022 Pt. Non Urgent Medical Question Adult Medicine [address] [id number] Lilly Benjamin PA [address] [place] [id number] Social History Tobacco Use Types Packs/Day Years [...] encounter Miscellaneous Notes * Telephone Encounter - Nick Arambula M.A. - 04/11/2022 2:41 PM ESTFrom: Mauricio Youssef To: Fransisca Benjamin Sent: 04/11/2022 2:07 PM EST Subject: Physical Therapy Hi there, A couple weeks ago I injured my right leg and hip during a marching band performance. It was extremely painful and I was limping for the better part of 3 weeks. 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 I am requesting a physical therapist so I can strengthen my joints. I did some research andsaw that having physical therapy will help. -Mauricio documented in this encounter Plan of Treatment Not on file documented as of this encounter Visit Diagnoses Not on filedocumented in this encounter Care Teams Napping Machine Operator Relationship Specialty Start Date End Date Beverly Day MD [address] [place] [id number] PCP - General Internal Medicine 10/11/17 documented as of this encounter
--- OUTSIDE RECORDS SUMMARY | 2024-07-26 10:33 | XMS_ITS | Encounter Summary ---
Author Organization [facility] Address [address] [place] [address] Care Team Providers Care Citizenship Instructor Name Role Phone Beverly Day MD Primary Care Provider [phone] Encounter Details Date Type Department Care Team Description 07/25/2023 Orders Only Medical Records [address] [place] [id number] Edgar Pozo MD Social History Tobacco Use [...] on file documented as of this encounter Procedures Procedure Name Priority Date/Time Associated Diagnosis Comments OUTSIDE LAB Routine 07/21/2023 documented in this encounter Results * OUTSIDE LAB (07/21/2023) Edgar Pozo MD LAB documented in this encounter Visit Diagnoses Not on filedocumented in this encounter Care Teams Citizenship Instructor Relationship Specialty Start Date End Date Beverly Day MD [address] [place] [phone] PCP - General Internal Medicine 10/11/17 documented as of this encounter
--- OUTSIDE RECORDS SUMMARY | 2024-07-26 10:33 | XMS_ITS | Clinical Summary ---
Author Organization [facility] Address [address] [place] [address] Care Team Providers Care Dealership General Manager Name Role Phone Beverly Day MD Primary Care Provider [phone] Medications Medication Sig Dispensed Refills Start Date End Date Status cetirizine (ZyrTEC) 10 MG tablet 0 10/12/2018 Active predniSONE (DELTASONE) tablet 10 mg take 2 tablets by mouth once daily for 7 days 0 10/17/2018 Active Active Problems Problem Noted Date Diagnosed Date Stiffness of right hand joint 11/06/2018 Stiffness of left hand joint 11/06/2018 Family History Medical History Relation Name Comments Clotting disorder Father Hyperlipidemia Father Relation Name Status Comments Father Social History Tobacco Use Types Packs/Day Years Used Date Smoking Tobacco: Never Smokeless Tobacco: Never Alcohol Use Standard Drinks/Week Comments No 0 (1 standard drink = 0.6 oz pur e alcohol) Sex and Gender Information Value Date Recorded Sex Assigned at Not on file Gender Identity Not on file Sexual Orientation Not on file Last Filed Vital Signs Vital Sign Reading Time Taken Comments Blood Pressure - - Pulse - - Temperature - - Respiratory Rate - - Oxygen Saturation - - Inhaled Oxygen Concentration - - Weight 113.4 kg (250 lb) 11/06/2018 10:27 AM EDT Height 162.6 cm (5' 4 ) 11/06/2018 10:27 AM EDT Body Mass Index 42.91 11/06/2018 10:27 AM EDT Plan of Treatment Health Maintenance Due Date Last Done Comments Hepatitis B Vaccines (1 of 3 - 3-dose series) 1993 Hepatitis C Screening 1993 COVID-19 Vaccine (#1) 05/20/1994 Depression Screening 2005 BMI Counseling 11/18/2011 Preventative Health Evaluation 11/18/2011 DTap / Tdap / Td (1 - Tdap) 2012 Cervical Cancer Screening (P ap Smear) 2014 Influenza Vaccine (#1) 2024 Pneumococcal Vaccine Aged Out No long er eligible based on patient's age to complete this topic RSV Ped < 20 months Aged Out No longe r eligible based on patient's age to complete this topic Care Teams Dealership General Manager Relationship Specialty Start Date End Date Beverly Day MD PCP - General Internal Medicine 09/27/18
--- OUTSIDE RECORDS SUMMARY | 2024-07-26 10:33 | XMS_ITS | Encounter Summary ---
Author Organization [facility] Address [address] [place] [address] Care Team Providers Care Medical Care Evaluation Specialist Name Role Phone Beverly Day MD Primary Care Provider [phone] Encounter Details Date Type Department Care Team Description 02/27/2018 Outdoor Fitness Trainer Report Medical Records [address] [place] [id number] Abstract, Provider Social History Tobacco Use Types [...] filedocumented in this encounter Care Teams Medical Care Evaluation Specialist Relationship Specialty Start Date End Date Beverly Day MD [address] [place] [address] [phone] PCP - General Internal Medicine 10/11/17 documented as of this encounter
--- OUTSIDE RECORDS SUMMARY | 2024-07-26 10:33 | XMS_ITS | Encounter Summary ---
Author Organization [facility] Address [address] [place] [address] Care Team Providers Care License Distributor Name Role Phone Beverly Day MD Primary Care Provider [phone] Encounter Details Date Type Department Care Team Description 09/11/2020 Pt. Non Urgent Medical Question Allergy [place] [address] [place] [address] Billie Torres MD Social History Tobacco Use [...] encounter Miscellaneous Notes * Telephone Encounter - Gloria Graham LPN - 09/13/2020 8:27 AM EDTFrom: Mauricio Youssef To: Manuel Torres Sent: 09/11/2020 6:53 PM EDT Subject: Possible new allergy I am convinced that I'm having an allergic reaction to my boyfriends semen. It garcia so bad after he finishes and it feels like that for a few days. When he finishes somewhere else, I have no issues. documented in this encounter Plan of Treatment Not on file documented as of this encounter Visit Diagnoses Not on filedocumented in this encounter Care Teams License Distributor Relationship Specialty Start Date End Date Beverly Day MD [address] [place] [id number] PCP - General Internal Medicine 10/11/17 documented as of this encounter
--- OUTSIDE RECORDS SUMMARY | 2024-07-26 10:33 | XMS_ITS | Encounter Summary ---
Author Organization [facility] Address [address] [place] [address] Care Team Providers Care Surgical Services Director Name Role Phone Beverly Day MD Primary Care Provider [phone] Reason for Visit * Reason Comments E-prescribe Rx Request Encounter Details Date Type Department Care Team Description 05/13/2020 Refill Orthopedics-[address] [id number] Ross Dorman PA-C E-prescribe Rx Request Social History Tobacco Use Types Packs/Day Years [...] have Coronavirus / COVID-19? No / Unsure 04/13/2020 9:55 AM EST documented as of this encounter Plan of Treatment Not on file documented as of this encounter Visit Diagnoses Not on filedocumented in this encounter Care Teams Surgical Services Director Relationship Specialty Start Date End Date Beverly Day MD [address] [place] [address] [phone] PCP - General Internal Medicine 10/11/17 documented as of this encounter
--- OUTSIDE RECORDS SUMMARY | 2024-07-26 10:33 | XMS_ITS | Encounter Summary ---
Author Organization [facility] Address [address] [place] [address] Care Team Providers Care Toggler Name Role Phone Beverly Day MD Primary Care Provider [phone] Encounter Details Date Type Department Care Team Description 03/11/2019 Pt. Non Urgent Medical Question OBGYN - [place] [address] [place] [address] [phone] Tanner Overton MD [address] [place] [address] [phone] Social History Tobacco Use Types Packs/Day Years [...] on filedocumented in this encounter Care Teams Toggler Relationship Specialty Start Date End Date Beverly aDy MD [address] [place] [phone] PCP - General Internal Medicine 10/11/17 documented as of this encounter
--- OUTSIDE RECORDS SUMMARY | 2024-07-26 10:33 | XMS_ITS | Encounter Summary ---
Author Organization [facility] Address [address] [place] [address] Care Team Providers Care Director Of Marketing Operations Name Role Phone Bveerly Day MD Primary Care Provider [phone] Reason for Visit * Reason Onset Date Comments TEST RESULTS 10/16/2017 result notes Encounter Details Date Type Department Care Team Description 10/16/2017 Telephone Adult Medicine [address] [address] Timmy Martin NP TEST RESULTS (result notes) Social History Tobacco Use Types Packs/Day Years [...] encounter Miscellaneous Notes * Telephone Encounter - Heather Luis M.A. - 10/16/2017 4:46 PM EDT Patient returned call, all set for hep b vaccine on 10/24 @3:45. * Telephone Encounter - Heather Luis M.A. - 10/16/2017 4:46 PM EDT ----- Message from Timmy Martin NP sent at 10/16/2017 12:27 PM EDT ----- Please call pt and notify her that hep B titer negative. I have ordered the vaccine for her to get.She just needs a nurse only visit. LDL also slightly elevated. Needs to cut back on fried foods, cheese, butter, ice cream etc - and increase exercise to approx 150min per wk. * Telephone Encounter - Heather Luis M.A. - 10/16/2017 4:33 PM EDT Left message for patient to return call to [phone]. Please call pt and notify her that hep B titer negative. I have ordered the vaccine for her to get.She just needs a nurse only visit. LDL also slightly elevated. Needs to cut back on fried foods, cheese, butter, ice cream etc - and increase exercise to approx 150min per wk. documented in this encounter Plan of Treatment Not on file documented as of this encounter Visit Diagnoses Not on filedocumented in this encounter Care Teams Director Of Marketing Operations Relationship Specialty Start Date End Date Beverly Day MD [address] [place] [phone] PCP - General Internal Medicine 10/11/17 documented as of this encounter
--- OUTSIDE RECORDS SUMMARY | 2024-07-26 10:33 | XMS_ITS | Encounter Summary ---
Author Organization [facility] Address [address] [place] [address] Care Team Providers Care Sales And Service Officer Name Role Phone Beverly Day MD Primary Care Provider [phone] Encounter Details Date Type Department Care Team Description 10/30/2017 Night Triage Doc Medical Records [address] [place] [id number] Abstract, Provider Social History Tobacco Use Types [...] on filedocumented in this encounter Care Teams Sales And Service Officer Relationship Specialty Start Date End Date Beverly Day MD [address] [place] [address] [phone] PCP - General Internal Medicine 10/11/17 documented as of this encounter
--- OUTSIDE RECORDS SUMMARY | 2024-07-26 10:33 | XMS_ITS | Encounter Summary ---
Author Organization [facility] Address [address] [place] [address] Care Team Providers Care Child Welfare Counselor Name Role Phone Bevrely Day MD Primary Care Provider [phone] Encounter Details Date Type Department Care Team Description 11/09/2022 Marketing And Promotions Manager Report Medical Records [address] [place] [id number] Edgar Pozo MD Social History Tobacco Use [...] on filedocumented in this encounter Care Teams Child Welfare Counselor Relationship Specialty Start Date End Date Beverly Day MD [address] [place] [address] [phone] PCP - General Internal Medicine 10/11/17 documented as of this encounter
[2024-07-26 10:43] LABS: MANUAL DIFF FLAG NO
[2024-07-26 11:03] LABS: Basophils Percent Auto 1.3 % (0-2); Eosinophils Absolute Auto 0.1 X10*3/uL (0.0-0.4); Eosinophils Percent Auto 1.7 % (0-4); Hematocrit 35.8 % (37.0-47.0); Hemoglobin 12.2 g/dl (12.0-16.0); Lymphocytes Absolute Auto 1.5 X10*3/uL (1.2-4.9); Lymphocytes Percent Auto 49.3 % (20-40); Mean Corpuscular HGB Conc 34.1 g/dl (31.0-35.0); Mean Corpuscular Hemoglobin 29.3 pg (27.0-33.0); Mean Corpuscular Volume 86.1 fL (80.0-98.0); Mean Platelet Volume 9.3 fL (9.4-12.3); Monocytes Absolute Auto 0.3 X10*3/uL (0.1-1.2); Monocytes Percent Auto 8.7 % (2-11); Neutrophils Absolute Auto 1.2 x10*3/uL (2.0-8.3); Platelet Count 281 X10*3/uL (160-400); Red Blood Count 4.16 X10*6/uL (4.20-5.50); Red Cell Distribution Width 14.1 % (11.0-16.0)
[2024-07-26 11:42] LABS: Alanine Aminotransferase 24 U/L (0-31); Alkaline Phosphatase 45 U/L (39-117); Anion Gap 11 (12-20); Aspartate Amino Transferase 15 U/L (5-31); Bilirubin Total 0.4 mg/dL (0.0-1.0); Blood Urea Nitrogen 21 mg/dL (9-16); C Reactive Protein 0.38 mg/dL (< or = 0.50); Calcium 8.8 mg/dL (8.4-10.2); Carbon Dioxide 24 mmol/L (22-29); Chloride 110 mmol/L (96-108); Estimated Glomerular Filt Rate > 60; Glucose Random 77 mg/dL (60-115); Potassium 4.5 mmol/L (3.3-5.1); Sodium 140 mmol/L (135-145); Total Protein 7.1 g/dL (6.5-8.0)
[2024-07-26 11:47] LABS: Erythrocyte Sedimentation Rate 9 MM/HR (0-20)
== END 2024-07-26 10:31 | disposition home or self-care (01) ==
LOC: HO.LAB 10:30
PROVIDERS: PCP Internal Medicine; Visit Provider Student in an Organized Health Care Education/Training Program
DX: M06.00 Rheumatoid arthritis without rheumatoid factor, unspecified site (principal); Z79.899 Other long term (current) drug therapy
CPT/HCPCS: 36415; 80053; 85025; 85652; 86140

== ENCOUNTER 2024-07-30 08:35 | Outpatient (AMB) | payer OTHER, SELFPAY ==
--- NOTE | 2024-07-30 08:36 | A.OFFVIS_ITS ---
Vital Signs 07/30/24 08:44 Height 5 ft 4 in Weight 262 lb 5.601 oz BMI 45.0 BP 120/72 Blood Pressure Location Lt radial Position Sitting Pulse 70 Pulse Source Pulse Oximeter Pulse Oximetry (%) 8 L Oxygen Delivery Method Room Air Intake Visit Reasons: RA Intake Note: Patient presents for RA. Allergies Penicillins Allergy (Severe, Verified 07/30/24 08:40) Anaphylaxis Pork Allergy (Severe, Uncoded 07/30/24 08:43) Anaphylaxis Kiwi Allergy (Mild, Uncoded 07/30/24 08:43) Swelling Medication List - Last Reconciled 07/30/24 by Love Burgess MD albuterol sulfate 90 mcg/actuation (Ventolin HFA) inhalation bupropion HCl XL 300 mg PO DAILY bupropion HCl XL 150 mg PO QAM cetirizine (Allergy Relief (cetirizine)) 10 mg PO DAILY PRN folic acid 1 mg PO DAILY hydroxychloroquine 200 mg PO BID meloxicam 15 mg PO DAILY meloxicam 15 mg PO DAILY methotrexate sodium 25 mg (10 x 2.5 mg) PO QWEEK 30 days methylphenidate HCl 5 mg PO BID HPI Comments Details: Patient is a 28 y.o. female with asthma, hyperlipidemia history of intracranial hypertension and seronegative rheumatoid arthritis here today for follow up Interval History: Patient last seen 04/24/[address] Castillo. At that time she had ran out of her medication about 2 weeks prior and had significant worsening of her joint pain. Was able to restart her medications including hydroxychloroquine 200 mg twice a day methotrexate 15 mg once weekly and meloxicam 15 mg daily. Despite some improvement after starting her medications she continued to complain of joint pain in in her hands and her ankles. Based on her examination with several swollen and tender joints her methotrexate was increased to 25 mg weekly split dosing. Today she reports improvement on the increase in methotrexate but continues to have swelling and pain to the hands and other joints Rheumatologic History: Seronegative rheumatoid arthritis hydroxychloroquine started fall 2020 - optic nerve swelling seen - ? ICH? Eye exam stable without toxicity evident May 2022. 07/2022: Methotrexate started Current Rheumatology Medication(s): Hydroxychloroquine 200 mg b.i.d. Methotrexate 25 mg weekly p.o. Folic acid 1 mg daily Meloxicam 15 mg p.r.n. 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 (NSAID) Flexor tenosynovitis of finger group home use of drug Flexor tenosynovitis of thumb Seronegative rheumatoid arthritis Surgical History H/O wisdom tooth extraction Family History Mother TTP (thrombotic thrombocytopenic purpura) Father Hypertension Social History Household Members: Significant Other Housing: House Are you a primary critical care transport nurse to a significant other at home: No Do you presently have visiting nurse or other home services: No 75 years or older and lives alone: No Alcohol intake: current Alcohol intake frequency: a few times a month Alcohol type: beer and hard liquor e-Cigarette/Vaping Use: Never Used service: No Current occupational status: employed 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 Review of Systems Const Details: Review of Systems Constitutional: Denies fever, chills, weight loss ENT: Denies vision changes, eye pain or eye redness, dental caries, dry mouth GI: Denies nausea, vomiting, diarrhea, abdominal pain, change in BM Pulm: Denies SOB, CAVAZOS, hemoptysis, wheezing Cards: Denies chest pain, palpitations Skin: Denies Raynaud's, rash, nail changes, photosensitivity, ACOUSTIC INTELLIGENCE SPECIALIST: Denies headaches, weakness, paresthesias, recurrent falls MSK: as per HPI All other systems reviewed and are unremarkable except noted above Physical Exam Vital Signs: Last Vital Signs Pulse 70 07/30/24 08:44 BP 120/72 07/30/24 08:44 Pulse Ox 8 L 07/30/24 08:44 Oxygen Delivery Method Room Air 07/30/24 08:44 BMI result Body Mass Index 45.0 Vital signs reviewed Physical Examination CONSTITUITIONAL Patient alert and cooperative. Well appearing and in no apparent painful distress. Morbidly obese HEENT Conjunctiva and sclera clear. ?Pupils equal round and reactive to light. ?No lymphadenopathy. ? CHEST/RESPIRATORY SYSTEM Normal respiratory effort and able to speak in complete sentences. ?Clear to auscultation bilaterally. ?No crackles, rales, rhonchi, wheezes heard. CARDIAC SYSTEM Regular rate and rhythm. ?S1 and S2 heard no murmurs. ?Radial pulses intact bilaterally MSK Hands: ?Bilateral appear swollen but there is only tenderness to palpation of the left 1st PIP. All the other joints the MCPs and PIPs are not tender to palpation. She is only able to make a fist on the left hand but on the right hand the 3rd digit is not able to come to full flexion. Wrists: ?Full range of motion at the wrists without pain. ?No tenderness to palpation or synovitis noted to the wrists. Elbows: Full range of motion without pain. No tenderness, weakness, swelling, increased warmth or erythema. Shoulders: Full range of motion without pain. No tenderness, weakness, swelling, increased warmth or erythema. Hips: Full range of motion without pain. Hip bursa: No tenderness to palpation Knees: ?Full range of motion. ?No tenderness, swelling, increased warmth or erythema. Crepitations felt bilaterally and tenderness to palpation of the tibial tuberosity just inferior to the patella tendon. No tenderness to palpation of the actual knee joint. Ankles: Full range of motion. ?No tenderness, swelling, increased warmth or erythema.? Feet: ?Negative squeeze test. ?No tenderness to palpation or swelling of the MTPs. Tender points:?No tenderness to palpation of the bilateral trapezius, supraspinatus, greater trochanters, anterior costochondral junctions, bilateral gluteal areas, bilateral suboccipital muscle insertions SKIN Skin intact without rashes. Results Reviewed Results Reviewed: Laboratory Tests 04/24/24 07/26/24 12:08 10:41 WBC 3.0 L RBC 4.16 L Hgb 12.2 Hct 35.8 L Plt Count 281 ESR 9 Sodium 140 Potassium 4.5 Chloride 110 H Carbon Dioxide 24 BUN 21 H Creatinine 1.00 AST 15 ALT 24 Alkaline Phosphatase 45 C-Reactive Protein 0.48 0.38 Infectious serologies 04/24/24 12:08 Hepatitis A IgM Ab Nonreactive Hep Bs Antigen Negative Hep Bs Antibody REACTIVE Hep B Core Total Ab Nonreactive Hepatitis C Ab (EIA) Nonreactive TB Test (T-Spot) Com Negative Assessment & Plan Assessment & Plan (1) Seronegative rheumatoid arthritis: Comment: hydroxychloroquine started fall 2020 - optic nerve swelling seen - ? ICH? Eye exam stable without toxicity evident May 2022. 07/2022: Methotrexate st arted Code(s): M06.00 - Rheumatoid arthritis without rheumatoid factor, unspecified site Category: Medical Plan: #Seronegative RA Patient is a 28-year-old female with seronegative rheumatoid arthritis here today for follow up. Based on her lab work and her examination it would appear that the patient is in low disease activity however her hands still are swollen and she still gets scattered joint pains to the body be continuing to have subclinical activity. To evaluate for this we will check x-rays of the hands and knees as well as MRI of the bilateral hands. If there is any evidence of subclinical synovitis we will need to escalate therapy. I discussed with the patient that taking meloxicam every day could have potential effects on her kidneys which would subsequently lead to methotrexate toxicity especially at the high dose that she was on. Patient is willing to try reducing her meloxicam use to every other day. 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): Code(s): Z79.1 - group home (current) use of non-steroidal anti-inflammatories (NSAID) Category: Medical Plan: #Long-term Use of NSAIDs Discussed with patient the benefits and risk of NSAIDs for managing the rheumatic condition Benefits include: - Reduced the pain, improved mobility, and increased participation in activities Risks include: - GI upset, potential also worsening or formation (especially in patients > 65 years old) Recommended using proton pump inhibitors (PPIs) for the duration of NSAID use to reduce the risk of gastric ulcers (3) Encounter for monitoring of hydroxychloroquine therapy: Code(s): Z51.81 - Encounter for therapeutic drug level monitoring; Z79.899 - Other remote computer terminal operator (current) drug therapy Plan: #Long-term Use of Hydroxychloroquine Discussed with patient the risks and benefits of hydroxychloroquine in managing the rheumatic condition Benefits include: - Reduced pain, reduce mortality, maintenance of remission and reduction of flares Risks include: - GI upset, skin hyperpigmentation, retinal toxicity (especially after more than 5 years of use), myopathy Advised yearly ophthalmology visits Last ophthalmology visit: November 2022 (4) Encounter for methotrexate monitoring: Code(s): Z51.81 - Encounter for therapeutic drug level monitoring; Z79.631 - group home (current) use of antimetabolite agent Plan: #Long-term Current Use of Methotrexate Discussed with patient the benefits and risks of methotrexate for managing their rheumatic condition Benefits include reduced pain, reduced mortality, maintenance of remission and reduction of flares Risks include oral ulcers, photosensitivity, hepatotoxicity, hematologic toxicity, pneumonitis, flu-like symptoms (especially day after administration), nodulosis, lymphomas ? Limit alcohol and avoid Bactrim ? Monitoring: ?CBC, BMP, LFTs every 3-4 months and hepatitis serologies as needed ? Methotrexate is teratogenic. Discussed with patient that patient should not get while she is taking this medication. ?If planning need to discontinue 3 months prior to conception Plan I spent 37 minutes reviewing the record and labs, taking a history, examining the patient, discussing the treatment plan, ordering diagnostic work up and documenting in the medical record Orders: Orders XR knee RT 3V Today M06.00 - Rheumatoid arthritis without rheumatoid factor, unspecified site XR hand RT min 3V Today M06.00 - Rheumatoid arthritis without rheumatoid factor, unspecified site Hepatitis A,B,C Profile 3 Months M06.00 - Rheumatoid arthritis without rheumatoid factor, unspecified site Cyclic Citrullinated Peptide 3 Months M06.00 - Rheumatoid arthritis without rheumatoid factor, unspecified site MR hand LT wo con Today M06.00 - Rheumatoid arthritis without rheumatoid factor, unspecified site XR knee LT 3V Today M06.00 - Rheumatoid arthritis without rheumatoid factor, unspecified site XR hand LT min 3V Today M06.00 - Rheumatoid arthritis without rheumatoid factor, unspecified site Complete Blood Count Auto Diff 3 Months M06.00 - Rheumatoid arthritis without rheumatoid factor, unspecified site Comprehensive Met. Panel 3 Months M06.00 - Rheumatoid arthritis without rheumatoid factor, unspecified site C Reactive Protein 3 Months M06.00 - Rheumatoid arthritis without rheumatoid factor, unspecified site Erythrocyte Sedimentation Rate 3 Months M06.00 - Rheumatoid arthritis without rheumatoid factor, unspecified site T Spot TB 3 Months M06.00 - Rheumatoid arthritis without rheumatoid factor, unspecified site Rheumatoid Factor 3 Months M06.00 - Rheumatoid arthritis without rheumatoid factor, unspecified site HLA B27 3 Months M06.00 - Rheumatoid arthritis without rheumatoid factor, unspecified site MR hand RT wo con Today M06.00 - Rheumatoid arthritis without rheumatoid factor, unspecified site JUAN Reflex Titer and Pattern Today M06.00 - Rheumatoid arthritis without rheumatoid factor, unspecified site Medications: Changed From methotrexate sodium Take 5 pills in the morning and 5 pills in the evening, about 12 hours later 25 mg (10 x 2.5 mg) PO QWEEK 30 days 50 tabs 0RF M06.00 - Rheumatoid arthritis without rheumatoid factor, unspecified site To methotrexate sodium Take 5 pills in the morning and 5 pills in the evening, about 12 hours later 25 mg (10 x 2.5 mg) PO QWEEK 90 days 130 tabs 1RF M06.00 - Rheumatoid arthritis without rheumatoid factor, unspecified site From hydroxychloroquine 200 mg PO BID 180 tabs 1RF M06.00 - Rheumatoid arthritis without rheumatoid factor, unspecified site To hydroxychloroquine 200 mg PO BID 90 days 180 tabs 1RF M06.00 - Rheumatoid arthritis without rheumatoid factor, unspecified site Refilled folic acid 1 mg PO DAILY 90 tabs 1RF M06.00 - Rheumatoid arthritis without rheumatoid factor, unspecified site meloxicam 15 mg PO DAILY 30 tabs 3RF M06.00 - Rheumatoid arthritis without rheumatoid factor, unspecified site Discontinued meloxicam Discontinued Reason: Duplicate 15 mg PO DAILY 30 tabs 1RF Coding Level of Care Code Est Pt Level 4 (43842) Complex EM visit Add On G2211 Diagnoses Seronegative rheumatoid arthritis 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
[2024-07-30 08:44] VITALS: BP 120/72; PULSE 70; O2SAT 8; BMI 45.0
--- OUTSIDE RECORDS SUMMARY | 2024-07-30 09:23 | XMS_ITS | Encounter Summary ---
Author Organization [facility] Address [address] [place] [address] Care Team Providers Care Vegetable Worker Name Role Phone Beverly Day MD Primary Care Provider [phone] Encounter Details Date Type Department Care Team Description 10/09/2018 Internet Marketing Strategist Report Medical Records [address] [place] [phone] Abstract, Provider Social History Tobacco Use Types [...] on filedocumented in this encounter Care Teams Vegetable Worker Relationship Specialty Start Date End Date Beverly Day MD [address] [place] [address] [phone] PCP - General Internal Medicine 10/11/17 documented as of this encounter
--- OUTSIDE RECORDS SUMMARY | 2024-07-30 09:23 | XMS_ITS | Encounter Summary ---
Author Organization [facility] Address [address] [place] [address] Care Team Providers Care Engineering Team Supervisor Name Role Phone Beverly Day MD Primary Care Provider [phone] Encounter Details Date Type Department Care Team Description 03/11/2019 Pt. Non Urgent Medical Question OBGYN - Trey [address] [place] [address] [phone] Tanner Overton MD [address] [place] [address] [phone] Social History Tobacco Use Types Packs/Day Years [...] on filedocumented in this encounter Care Teams Engineering Team Supervisor Relationship Specialty Start Date End Date Beverly Day MD [address] [place] [phone] PCP - General Internal Medicine 10/11/17 documented as of this encounter
--- OUTSIDE RECORDS SUMMARY | 2024-07-30 09:23 | XMS_ITS | Encounter Summary ---
Author Organization [facility] Address [address] [place] [address] Care Team Providers Care Auto Body Technician Name Role Phone Beverly Day MD Primary Care Provider [phone] Encounter Details Date Type Department Care Team Description 08/17/2021 Environmental Services Lead Report Medical Records [address] [place] [phone] Edgar Pozo MD Social History Tobacco Use [...] on filedocumented in this encounter Care Teams Auto Body Technician Relationship Specialty Start Date End Date Beverly Day MD [address] [place] [address] [phone] PCP - General Internal Medicine 10/11/17 documented as of this encounter
--- OUTSIDE RECORDS SUMMARY | 2024-07-30 09:23 | XMS_ITS | Clinical Summary ---
Author Organization [facility] Address [address] [place] [address] Care Team Providers Care Scrap Breaker Name Role Phone Beverly Day MD Primary Care Provider Medications Medication Sig Dispensed Refills Start Date [...] age to complete this topic Care Teams Scrap Breaker Relationship Specialty Start Date End Date Beverly Day MD PCP - General Internal Medicine 09/27/18
--- OUTSIDE RECORDS SUMMARY | 2024-07-30 09:23 | XMS_ITS | Encounter Summary ---
Author Organization [facility] Address [address] [place] [address] Care Team Providers Care High Lift Mule Operator Name Role Phone Beverly Day MD Primary Care Provider [phone] Encounter Details Date Type Department Care Team Description 05/01/2023 Statistical Typist Report Medical Records [address] [place] [phone] Edgar Pozo MD Social History Tobacco Use [...] on filedocumented in this encounter Care Teams High Lift Mule Operator Relationship Specialty Start Date End Date Beverly Day MD [address] [place] [address] [phone] PCP - General Internal Medicine 10/11/17 documented as of this encounter
--- OUTSIDE RECORDS SUMMARY | 2024-07-30 09:23 | XMS_ITS | Encounter Summary ---
Author Organization [facility] Address [address] [place] [address] Care Team Providers Care Hoe Worker Name Role Phone Beverly Day MD Primary Care Provider [phone] Reason for Visit * Reason Onset Date Comments My Chart Appointment 09/16/2020 Allergic Reaction 09/16/2020 Encounter Details Date Type Department Care Team Description 09/16/2020 Telephone Adult Medicine [address] [phone] Beverly Day MD [address] [place] [address] [phone] My Chart Appointment; Allergic Reaction Social History [...] better for her to be seen with SLEEVE TAILOR sothey could do urine testing and perform [...] should she be referred back to her grain spouter provider ? * Telephone Encounter - Melinda [...] on filedocumented in this encounter Care Teams Hoe Worker Relationship Specialty Start Date End Date Beverly Day MD [address] [place] [phone] PCP - General Internal Medicine 10/11/17 documented as of this encounter
--- OUTSIDE RECORDS SUMMARY | 2024-07-30 09:23 | XMS_ITS | Encounter Summary ---
Author Organization [facility] Address [address] [place] [address] Care Team Providers Care Title Lawyer Name Role Phone Beverly Day MD Primary Care Provider [phone] Encounter Details Date Type Department Care Team Description 06/21/2022 Steward/Stewardess Night Report Medical Records [address] [place] [address] Edgar Pozo MD Social History Tobacco Use [...] on filedocumented in this encounter Care Teams Title Lawyer Relationship Specialty Start Date End Date Beverly Day MD [address] [place] [address] [phone] PCP - General Internal Medicine 10/11/17 documented as of this encounter
--- OUTSIDE RECORDS SUMMARY | 2024-07-30 09:23 | XMS_ITS | Encounter Summary ---
Author Organization [facility] Address [address] [place] [address] Care Team Providers Care Double Cutter Name Role Phone Beverly Day MD Primary Care Provider [phone] Encounter Details Date Type Department Care Team Description 08/02/2023 Insurance Administrator Report Medical Records [address] [place] [phone] Leilani Garcia NP Social History Tobacco Use [...] on filedocumented in this encounter Care Teams Double Cutter Relationship Specialty Start Date End Date Beverly Day MD [address] [place] [address] [phone] PCP - General Internal Medicine 10/11/17 documented as of this encounter
--- OUTSIDE RECORDS SUMMARY | 2024-07-30 09:23 | XMS_ITS | Encounter Summary ---
Author Organization [facility] Address [address] [place] [address] Care Team Providers Care Oracle Identity Management Consultant Name Role Phone Beverly Day MD Primary Care Provider [phone] Encounter Details Date Type Department Care Team Description 11/09/2022 Carpenter Form Report Medical Records [address] [place] [phone] Edgar Pozo MD Social History Tobacco Use [...] on filedocumented in this encounter Care Teams Oracle Identity Management Consultant Relationship Specialty Start Date End Date Beverly Day MD [address] [place] [address] [phone] PCP - General Internal Medicine 10/11/17 documented as of this encounter
--- OUTSIDE RECORDS SUMMARY | 2024-07-30 09:23 | XMS_ITS | Encounter Summary ---
Author Organization [facility] Address [address] [place] [address] Care Team Providers Care Mortician Helper Name Role Phone Beverly Day MD Primary Care Provider Encounter Details Date Type Department Care Team Description 12/19/2021 Waste Chopper Report Medical Records [address] [place] [address] Edgar Pozo MD Social History Tobacco Use [...] In the last 10 days, have daniella u been in contact with someone who was confirmed or suspected to have Coronavirus/COVID-19? No / Unsure 12/15/2021 2:41 PM EDT documented as of this encounter Plan of Treatment Not on file documented as of this encounter Visit Diagnoses Not on filedocumented in this encounter Care Teams Mortician Helper Relationship Specialty Start Date End Date Beverly Day MD [address] [place] [address] [phone] PCP - General Internal Medicine 10/11/17 documented as of this encounter
--- OUTSIDE RECORDS SUMMARY | 2024-07-30 09:23 | XMS_ITS | Encounter Summary ---
Author Organization [facility] Address [address] [place] [address] Care Team Providers Care Press Department Manager Name Role Phone Beverly Day MD Primary Care Provider [phone] Reason for Visit * Reason Onset Date Comments TEST RESULTS 10/16/2017 result notes Encounter Details Date Type Department Care Team Description 10/16/2017 Telephone Adult Medicine [address] [address] Timmy Martin NP TEST RESULTS (result notes) [...] for patient to return call to ext [phone]. Please call pt and notify her that [...] on filedocumented in this encounter Care Teams Press Department Manager Relationship Specialty Start Date End Date Beverly Day MD [address] [place] [phone] PCP - General Internal Medicine 10/11/17 documented as of this encounter
--- OUTSIDE RECORDS SUMMARY | 2024-07-30 09:23 | XMS_ITS | Encounter Summary ---
Author Organization [facility] Address [address] [place] [address] Care Team Providers Care Beamer Helper Name Role Phone Beverly Day MD Primary Care Provider Encounter Details Date Type Department Care Team Description 02/27/2018 Dean For Student Affairs Report Medical Records [address] [place] [id number] Abstract, Provider Social History Tobacco Use Types [...] on filedocumented in this encounter Care Teams Beamer Helper Relationship Specialty Start Date End Date Beverly Day MD [address] [place] [address] [phone] PCP - General Internal Medicine 10/11/17 documented as of this encounter
--- OUTSIDE RECORDS SUMMARY | 2024-07-30 09:23 | XMS_ITS | Encounter Summary ---
Author Organization [facility] Address [address] [place] [address] Care Team Providers Care Manager Of Applications Development Name Role Phone Beverly Day MD Primary Care Provider [phone] Reason for Visit * Reason Onset Date Comments Tinnitus 03/22/2020 Finger Problems 03/22/2020 refill request 03/22/2020 Encounter Details Date Type Department Care Team Description 03/22/2020 Telephone Adult Medicine [address] [phone] Beverly Day MD [address] [place] [address] [phone] Tinnitus; Finger Problems; refill request Social History [...] Duval R.N. - 03/22/2020 9:47 AM EST [phone] (home) [phone] (work) * Telephone Encounter - Heike Nancy [...] on filedocumented in this encounter Care Teams Manager Of Applications Development Relationship Specialty Start Date End Date Beverly Day MD [address] [place] [phone] PCP - General Internal Medicine 10/11/17 documented as of this encounter
== END 2024-07-30 09:20 | disposition home or self-care (01) ==
LOC: HO.RHE 08:35
PROVIDERS: PCP Internal Medicine; Visit Provider Student in an Organized Health Care Education/Training Program
DX: M06.00 Rheumatoid arthritis without rheumatoid factor, unspecified site (principal); Z79.1 Long term (current) use of non-steroidal anti-inflammatories (NSAID); Z51.81 Encounter for therapeutic drug level monitoring; Z79.899 Other long term (current) drug therapy; Z79.631 Long term (current) use of antimetabolite agent
CPT/HCPCS: 99214; G2211

== ENCOUNTER → 2024-07-30 08:35 | Outpatient (BNVA) | payer OTHER, SELFPAY | PROVIDERS: PCP Internal Medicine; Visit Provider Student in an Organized Health Care Education/Training Program | DX: M06.00 Rheumatoid arthritis without rheumatoid factor, unspecified site (principal); Z79.1 Long term (current) use of non-steroidal anti-inflammatories (NSAID); Z51.81 Encounter for therapeutic drug level monitoring; Z79.899 Other long term (current) drug therapy; Z79.631 Long term (current) use of antimetabolite agent | CPT/HCPCS: 99212 ==

== ENCOUNTER 2024-08-26 12:30 | Emergency (ER) | payer OTHER, SELFPAY ==
--- NOTE | ~2024-08-26 | XR_ITS ---
EXAMINATION: XR LUMBAR SPINE 2-3 VIEWS HISTORY: back pain COMPARISON: There are no prior studies for comparison. FINDINGS: AP, lateral, and coned down views of the lumbar spine are submitted. Osseous mineralization is normal. Five nonrib-bearing lumbar vertebral bodies are identified, maintaining normal height and alignment without evidence of fracture or spondylolisthesis. The intervertebral disc spaces are preserved. The posterior elements are intact. The visualized paraspinal soft tissues are unremarkable. XR/XR lumbar spine 2-3V IMPRESSION: Unremarkable examination of the lumbar spine. Electronically signed by: Franklin Flores MD 08/26/2024 02:23 PM EDT
[2024-08-26 13:12] VITALS: BP 137/68; PULSE 83; RESP 18; TEMP 36.8; O2SAT 100; BMI 45.1
--- NOTE | 2024-08-26 13:16 | ED.GENADULT ---
HPI - General Adult General Chief complaint: Back Pain/Injury Stated complaint: Lower back pain radiating to legs Time Seen by Provider: 08/26/24 13:42 Source: patient Mode of arrival: ambulatory Limitations: no limitations History of Present Illness HPI narrative: This is a 28 years old presented to the emergency department complaining of lower back pain ongoing for about 2 weeks the pain is radiated more to the left lower extremity. She is able to ambulate without any problems she has no weakness whatsoever she has no urine incontinence. She walked to the department Onset (ago): week(s) (2) Location: back Radiation: non-radiation Severity: moderate Quality: burning Pain Consistency: constant Relieving factors: none Exacerbating factors: none Treatments prior to arrival: other (Prednisone and muscle relaxant) Related Data Home Medications ?Medication ?Instructions ?Recorded ?Confirmed cetirizine 10 mg tablet (Allergy 10 mg PO DAILY PRN 08/17/21 07/30/24 Relief (cetirizine)) albuterol sulfate 90 mcg/actuation inhalation 02/14/23 07/30/24 aerosol inhaler (Ventolin HFA) bupropion HCl 150 mg 24 hr tablet, 150 mg PO QAM 08/02/23 07/30/24 extended release bupropion HCl 300 mg 24 hr tablet, 300 mg PO DAILY 08/02/23 07/30/24 extended release methylphenidate HCl 5 mg tablet 5 mg PO BID 07/30/24 07/30/24 Previous Rx's ?Medication ?Instructions ?Recorded folic acid 1 mg tablet 1 mg PO DAILY #90 tabs 07/30/24 hydroxychloroquine 200 mg tablet 200 mg PO BID 90 days #180 tabs 07/30/24 meloxicam 15 mg tablet 15 mg PO DAILY #30 tabs 07/30/24 methotrexate sodium 2.5 mg tablet 25 mg (10 x 2.5 mg) PO QWEEK 90 07/30/24 days #130 tabs cyclobenzaprine 10 mg tablet 10 mg PO TID back pain #14 tabs 08/26/24 Allergies Allergy/AdvReac Type Severity Reaction Status Date / Time Penicillins Allergy Severe Anaphylaxis Verified 08/26/24 13:13 Pork Allergy Severe Anaphylaxis Uncoded 08/26/24 13:13 Kiwi Allergy Mild Swelling Uncoded 08/26/24 13:13 Review of Systems Constitutional: Constitutional: Reports no additional constitutional complaints ENT: Reports system reviewed and no additional complaints, except as documented Cardiovascular: Cardiovascular: Reports no additional cardiovascular complaints Integumentary/Breasts: Skin/Breast: Reports system reviewed and no additional complaints, except as docu PMFSH Past Medical History Attestation statement: The following information was validated with the patient. Medical History skilled nursing current use of non-steroidal anti-inflammatories (NSAID) Flexor tenosynovitis of finger skilled nursing use of drug Flexor tenosynovitis of thumb Seronegative rheumatoid arthritis Surgical History H/O wisdom tooth extraction Family History Family History Mother TTP (thrombotic thrombocytopenic purpura) Father Hypertension Social History Social History Household Members: Significant Other Housing: House Are you a primary child day care teacher to a significant other at home: No Do you presently have visiting nurse or other home services: No Alcohol intake: current Alcohol intake frequency: a few times a month Alcohol type: beer and hard liquor e-Cigarette/Vaping Use: Never Used Advance Directives: No Advance Directives Information Provided: No Do you have a plan to hurt others: No Plan service: No Current occupational status: employed 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 Physical Exam ED Vital Signs: Vital Signs - 24 hr 08/26/24 13:12 08/26/24 14:48 Temperature 98.3 F 98.3 F Pulse Rate 83 83 Respiratory Rate 18 18 Blood Pressure 137/68 137/68 Pulse Oximetry 100 100 Oxygen Delivery Method Room Air Room Air BMI result Body Mass Index 45.1 No acute distress she looks comfortable in the stretcher Const General: cooperative Nutritional Appearance: well nourished Orientation/consciousness: patient oriented x3 Limitations: no limitations HENMT Head: Yes normal to inspection Neck Neck: Yes normal visual inspection and Yes full ROM Chest Chest palpation & inspection: normal inspection of the chest Resp Effort & Inspection: normal respiratory effort Auscultation: clear to auscultation bilaterally Cardio Jugular venous distension: no JVD Rate: regular rate Rhythm: regular rhythm GI Inspection: Yes normal to inspection Palpation (GI): Soft to palpation Back/Spine/Pelvis Other: Tenderness in the LS spine Neuro Other: And a re-examined she has no deficits in strength, she has a good dorsiflexion and plantar fascia of the left foot excellent strength gait is stable. General: patient oriented x3 Course Course Course Narrative: RME: 28-year-old female presents to ED for low back pain radiating down both legs start any trauma. Patient denies any urinary/bowel incontinence, calf pain, chest pain, shortness of breath, fever, chills, weakness or dizziness. Patient does do a lot of lift. Patient is on muscle relaxant for back pain as given by primary care telemedicine but has not had any imaging. X-ray UA your. Ordered. Positive for lumbar spine tenderness on palpation Reevaluation(s) Reevaluation #1: Doing well x-ray negative anticipate discharge neuro intact Time: 14:38 Medications Administered Discontinued Medications Generic Name Dose Route Start Last Admin Trade Name Freq PRN Reason Stop Dose Admin Oxycodone HCl 5 mg 08/26/24 14:28 08/26/24 14:38 Oxycodone Hcl Immed Release 5 Mg Tablet PO 08/26/24 14:29 5 mg ONCE ONE Administration Medical Decision Making Medical Decision Making [facility] Narrative: Patient is here because of lower back pain, she is neurologically intact at this time, I do not think we need to do an MRI today she may need an MRI but no emergently today. I do not think she needs any blood work either. We will treat symptomatically we will refer to neuro spine. On exam today she is neurologically intact she has no deficit in strength no red flag no incontinent of urine no saddle anesthesia Differential Diagnosis Differential Diagnoses: The differential diagnosis associated with the presentation includes Lower back pain/herniated discuss, picture not consistent with a epidural abscess (she has a fever no risk factors) Admission/Observation Consideration of admission/observation: Escalation of care including admission/observation considered Lab Data [facility] Lab Attestation statement: I reviewed the patient's lab results. Labs: Lab Results 08/26/24 Range/Units 13:48 Urine Color Yellow Urine Appearance Clear Urine pH 6.0 (5.0-9.0) Ur Specific [place] >= 1.030 H (1.005-1.025) Urine Protein 30 (1+) H (Neg-Trace) mg/dL Urine Glucose (UA) Negative (Negative) mg/dL Urine Ketones Negative (Negative) mg/dL Urine Blood Large (3+) H (Negative) Urine Nitrite Negative (Negative) Ur Leukocyte Esterase Negative (Negative) Urine RBC 11-20 H (0-2) /HPF Urine WBC 0-5 (0-5) /HPF Ur Squamous Epith Cells 3-5 (0-2) /HPF Urine Bacteria None Seen (None Seen) Hyaline Casts 0-2 (0-2) /LPF Urine Test NEGATIVE (NEGATIVE) Independent Interpretation I performed an independent interpretation of an: Plain X-Ray Interpretation: No fracture Radiology Impression Discussion of test interpretation with radiology: I have reviewed the radiologist's reading. Radiologist Impression: COMPARISON: There are no prior studies for comparison. FINDINGS: AP, lateral, and coned down views of the lumbar spine are submitted. Osseous mineralization is normal. Five nonrib-bearing lumbar vertebral bodies are identified, maintaining normal height and alignment without evidence of fracture or spondylolisthesis. The intervertebral disc spaces are preserved. The posterior elements are intact. The visualized paraspinal soft tissues are unremarkable. XR/XR lumbar spine 2-3V IMPRESSION: Unremarkable examination of the lumbar spine. Electronically signed by: Franklin Flores MD 08/26/2024 02:23 PM EDT Dictated By: Franklin Flores MD Signed By: <Electronically signed by Franklin Flores MD in OV> 08/26/24 1423 DD/ 1412 TD/TT: 08/26/24 1417 Inspector Insulation: Prescription Management I considered prescription management with: Pain Medication Discharge Plan Discharge Clinical Impression: Sciatic radiculitis Patient Disposition: Home, Self-Care Instructions: Acute Low Back Pain (ED), Lower Back Exercises (ED) Additional Instructions: Follow-up with a fireworks display specialist Dr. Clarke see number below. Return to the emergency room if worse Prescriptions: New cyclobenzaprine 10 mg tablet 10 mg PO TID Qty: 14 0RF No Action cetirizine [Allergy Relief (cetirizine)] 10 mg tablet 10 mg PO DAILY PRN albuterol sulfate [Ventolin HFA] 90 mcg/actuation HFA aerosol inhaler inhalation methylphenidate HCl 5 mg tablet 5 mg PO BID methotrexate sodium 2.5 mg tablet 25 mg PO QWEEK 90 Days Qty: 130 1RF Rx Instructions: Take 5 pills in the morning and 5 pills in the evening, about 12 hours later hydroxychloroquine 200 mg tablet 200 mg PO BID 90 Days Qty: 180 1RF folic acid 1 mg tablet 1 mg PO DAILY Qty: 90 1RF meloxicam 15 mg tablet 15 mg PO DAILY Qty: 30 3RF bupropion HCl 300 mg tablet extended release 24 hr 300 mg PO DAILY bupropion HCl 150 mg tablet extended release 24 hr 150 mg PO QAM Referrals: Dale Thomason MD, PhD [Physician] - 3 days Stand Alone Forms: Work/School Release Interventions: ED Discharge Assessment Last Done: 08/26/24 14:48 Discharge Date/Time: 08/26/24 14:48 Print Language: Samoan
[2024-08-26 13:58] LABS: Appearance Urine Clear; Color Urine Yellow; Glucose Urine UA Negative (Negative); Leukocyte Esterase Urine Negative (Negative); Nitrite Urine Negative (Negative); Specific Gravity - Urine >= 1.030 (1.005-1.025); UMIC TRIGGER UACC YES; Urine Blood Large (3+) (Negative); Urine Ketones Negative (Negative); Urine Protein 30 (1+) mg/dL (Neg-Trace)
[2024-08-26 13:59] LABS: UPreg QC Valid YES; Urine Pregnancy NEGATIVE (NEGATIVE)
[2024-08-26 14:00] LABS: Bacteria Urine None Seen (None Seen); Hyaline Casts Urine 0-2 /LPF (0-2); WBC Urine 0-5 /HPF (0-5)
[2024-08-26] MEDS: oxyCODONE HCl Immed Release 5 MG TABLET PO (14:38)
[2024-08-26 14:48] VITALS: BP 137/68; PULSE 83; RESP 18; TEMP 36.8; O2SAT 100
--- OUTSIDE RECORDS SUMMARY | 2024-08-26 16:53 | XMS_ITS | Encounter Summary ---
Author Organization [facility] Address [address] [place] [address] Care Team Providers Care Developing Machine Operator Name Role Phone Beverly Day MD Primary Care Provider Encounter Details Date Type Department Care Team Description 04/11/2022 Pt. Non Urgent Medical Question Adult Medicine [address] [phone] Lilly Benjamin PA [address] [place] [phone] Social History Tobacco Use Types Packs/Day Years [...] on filedocumented in this encounter Care Teams Developing Machine Operator Relationship Specialty Start Date End Date Beverly Day MD [address] [place] [phone] PCP - General Internal Medicine 10/11/17 documented as of this encounter
--- OUTSIDE RECORDS SUMMARY | 2024-08-26 16:53 | XMS_ITS | Encounter Summary ---
Author Organization [facility] Address [address] [place] [address] Care Team Providers Care Code Enforcement Officer Name Role Phone Beverly Day MD Primary Care Provider [phone] Reason for Visit * Reason Onset Date Comments TEST RESULTS 10/16/2017 result notes Encounter Details Date Type Department Care Team Description 10/16/2017 Telephone Adult Medicine [address] [address] Timmy Martin NP TEST RESULTS (result notes) [...] for patient to return call to ext [phone]. Please call pt and notify her that [...] on filedocumented in this encounter Care Teams Code Enforcement Officer Relationship Specialty Start Date End Date Beverly Day MD [address] [place] [address] PCP - General Internal Medicine 10/11/17 documented as of this encounter
--- OUTSIDE RECORDS SUMMARY | 2024-08-26 16:53 | XMS_ITS | Encounter Summary ---
Author Organization [facility] Address [address] [place] [address] Care Team Providers Care Creative Services Specialist Name Role Phone Beverly Day MD Primary Care Provider [phone] Reason for Visit * Reason Onset Date Comments Tinnitus 03/22/2020 Finger Problems 03/22/2020 refill request 03/22/2020 Encounter Details Date Type Department Care Team Description 03/22/2020 Telephone Adult Medicine [address] [phone] Beverly Day MD [address] [place] [address] [phone] Tinnitus; Finger Problems; refill request Social History [...] Duval R.N. - 03/22/2020 9:47 AM EST [phone] (home) [phone] (work) * Telephone Encounter - Heike Nancy [...] on filedocumented in this encounter Care Teams Creative Services Specialist Relationship Specialty Start Date End Date Beverly Day MD [address] [place] [address] PCP - General Internal Medicine 10/11/17 documented as of this encounter
--- OUTSIDE RECORDS SUMMARY | 2024-08-26 16:53 | XMS_ITS | Encounter Summary ---
Author Organization [facility] Address [address] [place] [address] Care Team Providers Care Plate Embosser Name Role Phone Beverly Day MD Primary Care Provider [phone] Encounter Details Date Type Department Care Team Description 10/01/2019 Refill Allergy [facility] [address] [place] [phone] Billie Torres MD Social History Tobacco Use [...] on filedocumented in this encounter Care Teams Plate Embosser Relationship Specialty Start Date End Date Beverly Day MD [address] [place] [phone] PCP - General Internal Medicine 10/11/17 documented as of this encounter
--- OUTSIDE RECORDS SUMMARY | 2024-08-26 16:53 | XMS_ITS | Encounter Summary ---
Author Organization [facility] Address [address] [place] [address] Care Team Providers Care Varnishing Unit Tool Setter Name Role Phone Beverly Day MD Primary Care Provider Encounter Details Date Type Department Care Team Description 07/25/2023 Orders Only Medical Records [address] [place] [phone] Edgar Pozo MD Social History Tobacco Use [...] on filedocumented in this encounter Care Teams Varnishing Unit Tool Setter Relationship Specialty Start Date End Date Beverly Day MD [address] [place] [address] PCP - General Internal Medicine 10/11/17 documented as of this encounter
--- OUTSIDE RECORDS SUMMARY | 2024-08-26 16:53 | XMS_ITS | Encounter Summary ---
Author Organization [facility] Address [address] [place] [address] Care Team Providers Care Set Up Person Name Role Phone Beverly Day MD Primary Care Provider [phone] Encounter Details Date Type Department Care Team Description 05/01/2023 Parachute Cushion Installer Report Medical Records [address] [place] [phone] Edgar Pozo MD Social History Tobacco Use [...] on filedocumented in this encounter Care Teams Set Up Person Relationship Specialty Start Date End Date Beverly Day MD [address] [place] [address] [phone] PCP - General Internal Medicine 10/11/17 documented as of this encounter
--- OUTSIDE RECORDS SUMMARY | 2024-08-26 16:53 | XMS_ITS | Encounter Summary ---
Author Organization [facility] Address [address] [place] [address] Care Team Providers Care Incinerator Operator Name Role Phone Beverly Day MD Primary Care Provider [phone] Encounter Details Date Type Department Care Team Description 03/11/2019 Pt. Non Urgent Medical Question OBGYN - [place] [address] [place] [place] [address] [phone] Tanner Overton MD [address] [place] [address] [phone] Social History Tobacco Use Types Packs/Day Years [...] on filedocumented in this encounter Care Teams Incinerator Operator Relationship Specialty Start Date End Date Beverly Day MD [address] [place] [place] [address] PCP - General Internal Medicine 10/11/17 documented as of this encounter
--- OUTSIDE RECORDS SUMMARY | 2024-08-26 16:53 | XMS_ITS | Encounter Summary ---
Author Organization [facility] Address [address] [place] [address] Care Team Providers Care Inspector Automatic Typewriter Name Role Phone Beverly Day MD Primary Care Provider [phone] Reason for Visit * Reason Onset Date Comments Cartridge Assembler Feedback 03/29/2020 Orthopedics Encounter Details Date Type Department Care Team Description 03/29/2020 Telephone Adult Medicine [address] [address] Lavonne Jay PA-C Cartridge Assembler Feedback (Orthopedics) Social History Tobacco Use Types [...] imaging being completed. Thank you Jaquelin Referral Transformer Molder documented in this encounter Plan of Treatment Not on file documented as of this encounter Visit Diagnoses Not on filedocumented in this encounter Care Teams Inspector Automatic Typewriter Relationship Specialty Start Date End Date Beverly Day MD [address] [place] [address] PCP - General Internal Medicine 10/11/17 documented as of this encounter
--- OUTSIDE RECORDS SUMMARY | 2024-08-26 16:53 | XMS_ITS | Encounter Summary ---
Author Organization [facility] Address [address] [place] [address] Care Team Providers Care Supervisor Pig Machine Name Role Phone Beverly Day MD Primary Care Provider [phone] Encounter Details Date Type Department Care Team Description 11/09/2022 Snout Puller Report Medical Records [address] [place] [phone] Edgar Pozo MD Social History Tobacco Use [...] on filedocumented in this encounter Care Teams Supervisor Pig Machine Relationship Specialty Start Date End Date Beverly Day MD [address] [place] [address] [phone] PCP - General Internal Medicine 10/11/17 documented as of this encounter
--- OUTSIDE RECORDS SUMMARY | 2024-08-26 16:53 | XMS_ITS | Encounter Summary ---
Author Organization [facility] Address [address] [place] [address] Care Team Providers Care Change Advisor Name Role Phone Beverly Day MD Primary Care Provider [phone] Encounter Details Date Type Department Care Team Description 08/17/2021 Wool Sorter Report Medical Records [address] [place] [phone] Edgar Pozo MD Social History Tobacco Use [...] on filedocumented in this encounter Care Teams Change Advisor Relationship Specialty Start Date End Date Beverly Day MD [address] [place] [address] [phone] PCP - General Internal Medicine 10/11/17 documented as of this encounter
--- OUTSIDE RECORDS SUMMARY | 2024-08-26 16:53 | XMS_ITS | Encounter Summary ---
Author Organization [facility] Address [address] [place] [address] Care Team Providers Care Science Liaison Name Role Phone Beverly Day MD Primary Care Provider [phone] Reason for Visit * Reason Comments E-prescribe Rx Request Encounter Details Date Type Department Care Team Description 05/13/2020 Refill Orthopedics-[address] [phone] Ross Dorman PA-C E-prescribe Rx Request Social [...] on filedocumented in this encounter Care Teams Science Liaison Relationship Specialty Start Date End Date Beverly Day MD [address] [place] [address] [phone] PCP - General Internal Medicine 10/11/17 documented as of this encounter
--- OUTSIDE RECORDS SUMMARY | 2024-08-26 16:53 | XMS_ITS | Encounter Summary ---
Author Organization [facility] Address [address] [place] [address] Care Team Providers Care Emergency Medicine Nurse Practitioner Name Role Phone Beverly Day MD Primary Care Provider [phone] Encounter Details Date Type Department Care Team Description 02/27/2018 Welding Machine Operator Helper Gas Report Medical Records [address] [place] [address] Abstract, Provider Social History Tobacco Use Types [...] on filedocumented in this encounter Care Teams Emergency Medicine Nurse Practitioner Relationship Specialty Start Date End Date Beverly Day MD [address] [place] [address] [phone] PCP - General Internal Medicine 10/11/17 documented as of this encounter
--- OUTSIDE RECORDS SUMMARY | 2024-08-26 16:53 | XMS_ITS | Clinical Summary ---
Author Organization [facility] Address [address] [place] [address] Care Team Providers Care Mail Handlers Supervisor Name Role Phone Beverly Day MD Primary Care Provider [phone] Medications Medication Sig Dispensed Refills Start Date [...] age to complete this topic Care Teams Mail Handlers Supervisor Relationship Specialty Start Date End Date Beverly Day MD PCP - General Internal Medicine 09/27/18
--- OUTSIDE RECORDS SUMMARY | 2024-08-26 16:53 | XMS_ITS | Encounter Summary ---
Author Organization [facility] Address [address] [place] [address] Care Team Providers Care Sales Service Professional Name Role Phone Beverly Day MD Primary Care Provider [phone] Encounter Details Date Type Department Care Team Description 09/25/2020 Pt. 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 I need an appointment. documented in this encounter Plan of Treatment Not on file documented as of this encounter Visit Diagnoses Not on filedocumented in this encounter Care Teams Sales Service Professional Relationship Specialty Start Date End Date Beverly Day MD [address] [place] [address] PCP - General Internal Medicine 10/11/17 documented as of this encounter
--- OUTSIDE RECORDS SUMMARY | 2024-08-26 16:53 | XMS_ITS | Encounter Summary ---
Author Organization [facility] Address [address] [place] [address] Care Team Providers Care Sanitary Engineering Teacher Name Role Phone Beverly Day MD Primary Care Provider [phone] Encounter Details Date Type Department Care Team Description 05/26/2021 Old Medical Records Medical Records [address] [place] [phone] Abstract, Provider Social History Tobacco Use Types [...] on filedocumented in this encounter Care Teams Sanitary Engineering Teacher Relationship Specialty Start Date End Date Beverly Day MD [address] [place] [address] [phone] PCP - General Internal Medicine 10/11/17 documented as of this encounter
--- OUTSIDE RECORDS SUMMARY | 2024-08-26 16:53 | XMS_ITS | Encounter Summary ---
Author Organization [facility] Address [address] [place] [address] Care Team Providers Care Sql Server Bi Developer Name Role Phone Beverly Day MD Primary Care Provider [phone] Encounter Details Date Type Department Care Team Description 10/16/2017 Orders Only Adult Medicine [address] [phone] Timmy Martin NP Need for prophylactic vaccination and inoculation against viral hepatitis (Primary Dx) Social History Tobacco Use Types Packs/Day Years [...] documented as of this encounter Visit Diagnoses Diagnosis Need for prophylactic vaccination and inoculation against viral hepatitis- Primary documented in this encounter Care Teams Sql Server Bi Developer Relationship Specialty Start Date End Date Beverly Day MD [address] [place] [address] [phone] PCP - General Internal Medicine 10/11/17 documented as of this encounter
== END 2024-08-26 14:48 | disposition home or self-care (01) ==
PROVIDERS: Physician Assistant; Emergency Provider Emergency Medicine; PCP Internal Medicine
DX: M54.10 Radiculopathy, site unspecified (principal)
CPT/HCPCS: 72100; 81001; 81025; 99283

== ENCOUNTER → 2024-08-26 13:16 | Outpatient (BNV) | payer OTHER, SELFPAY | PROVIDERS: Emergency Provider Emergency Medicine; PCP Internal Medicine; Visit Provider Radiology Diagnostic Radiology | DX: M54.9 Dorsalgia, unspecified (principal) | CPT/HCPCS: 72100 ==

== ENCOUNTER → 2024-08-31 10:03 | Outpatient (BNV) | payer OTHER, SELFPAY | PROVIDERS: PCP Internal Medicine; Visit Provider Radiology Diagnostic Radiology | DX: M06.042 Rheumatoid arthritis without rheumatoid factor, left hand (principal); M06.041 Rheumatoid arthritis without rheumatoid factor, right hand | CPT/HCPCS: 73218 ==

== ENCOUNTER 2024-08-31 10:06 | Outpatient (REF) | payer OTHER, SELFPAY ==
--- NOTE | ~2024-08-31 | MR_ITS ---
CLINICAL HISTORY: M06.00 - Rheumatoid arthritis without rheumatoid factor, unspecified site --- Addit ional Notes or Special Instructions: Patient with persistent bilateral hand swelling without tender j oints and MRI of the left hand without contrast. Comparison: None Findings: The examination demonstrates no acute bony abnormalities. The joint spaces are normal. No erosions are demonstrated. The muscles and tendons are unremarkable. Impression: No acute abnormalities are noted. No definite evidence of rheumatoid arthritis This document has been electronically signed by: Calvin Fajardo MD on 09/03/2024 10:43:03
--- NOTE | ~2024-08-31 | MR_ITS ---
CLINICAL HISTORY: M06.00 - Rheumatoid arthritis without rheumatoid factor, unspecified site --- Addit ional Notes or Special Instructions: Patient with persistent bilateral hand swelling without tender j oints and MRI of the right hand without contrast. Comparisons: None Findings: The examination demonstrates no acute bony abnormalities. The joint spaces are normal. There is no evidence of bony erosion to suggest rheumatoid arthritis. The visualized muscles and tendons are unremarkable. Impression: No definite acute abnormalities. No signs of rheumatoid arthritis. This document has been electronically signed by: Calvin Fajardo MD on 09/03/2024 11:05:47
== END 2024-08-31 10:07 | disposition home or self-care (01) ==
LOC: HO.MRI 10:06
PROVIDERS: PCP Internal Medicine; Visit Provider Student in an Organized Health Care Education/Training Program
DX: M06.00 Rheumatoid arthritis without rheumatoid factor, unspecified site (principal)
CPT/HCPCS: 73218

== ENCOUNTER 2025-01-13 08:16 | Outpatient (REF) | payer OTHER, SELFPAY ==
--- NOTE | ~2025-01-13 | XR_ITS ---
CLINICAL HISTORY: M06.00 - Rheumatoid arthritis without rheumatoid factor, unspecified site Radiographs of the right hand, 3 views Comparison: MR/DE - MR HAND LT [facility] 08/31/24 10:40 EDT MR/DE - MR HAND RT [facility] - 08/31/24 10:17 EDT Findings: No fracture or dislocation. The joint spaces are preserved without osteophytosis. No demineralization or erosions. No soft tissue swelling. Impression: No acute findings. No arthritic findings. Radiographs of the left hand, 3 views Comparison: MR/DE - MR HAND LT [facility] 08/31/24 10:40 EDT MR/DE - MR HAND RT [facility] - 08/31/24 10:17 EDT Findings: No fracture or dislocation. The joint spaces are preserved without osteophytosis. No demineralization or erosions. No soft tissue swelling. Impression: No acute findings. No arthritic findings. This document has been electronically signed by: Evelina St MD on 01/14/2025 14:04:44
--- NOTE | ~2025-01-13 | XR_ITS ---
CLINICAL HISTORY: M06.00 - Rheumatoid arthritis without rheumatoid factor, unspecified site Radiographs of the right knee, 3 views including an AP bilateral standing view Comparison: None available Findings: There is no fracture or dislocation. Mild lateralization of the patella. No joint space narrowing or osteophytosis. No erosions or demineralization. No knee joint effusion. No soft tissue swelling. Impression: No acute pathology or arthritic change. Radiographs of the left knee, 3 views including an AP bilateral standing view Comparison: None available Findings: There is no fracture or dislocation. Mild lateralization of the patella. No joint space narrowing or osteophytosis. No erosions or demineralization. No knee joint effusion. No soft tissue swelling. Impression: No acute pathology or arthritic change. This document has been electronically signed by: Evelina St MD on 01/14/2025 14:11:32
--- OUTSIDE RECORDS SUMMARY | 2025-01-13 08:54 | XMS_ITS | Encounter Summary ---
Author Organization [facility] Address [address] [place] [address] Care Team Providers Care Economics Professor Name Role Phone Beverly Day MD Primary Care Provider [phone] Reason for Visit * Reason Onset Date Comments other 10/05/2020 Encounter Details Date Type Department Care Team Description 10/05/2020 Telephone Allergy [place] [address] [place] [id number] Billie Torres MD other Social History Tobacco Use Types Packs/Day Years [...] have Coronavirus / COVID-19? No / Unsure 10/01/2020 7:09 AM EDT documented as of this encounter Miscellaneous Notes * Telephone Encounter - Carie Mcmullen - 10/06/2020 11:35 AM EDT Left message to call and schedule testing appointment * Telephone Encounter - Billie Torres MD - 10/05/2020 1:46 PM EDT Follow-up call placed for patient Semen reaction may be due to semen allergy Options: use a condom Directed skin testing to semen, explained this is a bodily fluid and has risk of transmission of communicable diseases Discussed possibility fertility issues with this Discussed possibility of an allergen that she does not typically consume Plan She wishes to have skin testing done. Plans to bring it in fresh documented in this encounter Plan of Treatment Not on file documented as of this encounter Visit Diagnoses Not on filedocumented in this encounter Care Teams Economics Professor Relationship Specialty Start Date End Date Beverly Day MD [address] [place] [id number] PCP - General Internal Medicine 10/11/17 documented as of this encounter
--- OUTSIDE RECORDS SUMMARY | 2025-01-13 08:54 | XMS_ITS | Encounter Summary ---
Author Organization [facility] Address [address] [place] [address] Care Team Providers Care Data Engineer Name Role Phone Beverly Day MD Primary Care Provider [phone] Encounter Details Date Type Department Care Team Description 2021 Telephone OBGYN - [place] [address] [place] [address] Hayes Gallegos CNM [address] [place] [address] Social History Tobacco Use Types Packs/Day Years [...] encounter Miscellaneous Notes * Telephone Encounter - Karma Coley - 2021 3:41 PM EDT Error documented in this encounter Plan of Treatment Not on file documented as of this encounter Visit Diagnoses Not on filedocumented in this encounter Care Teams Data Engineer Relationship Specialty Start Date End Date Beverly Day MD [address] [place] [phone] PCP - General Internal Medicine 10/11/17 documented as of this encounter
--- OUTSIDE RECORDS SUMMARY | 2025-01-13 08:54 | XMS_ITS ---
Author Name [facility] Organization Unknown Care Team Organization Name Specialty Phone Email Start Date End Da te [facility] Day Primary Care 03/21/2022 12/31/2023
--- OUTSIDE RECORDS SUMMARY | 2025-01-13 08:54 | XMS_ITS | Encounter Summary ---
Author Organization [facility] Address [address] [place] [address] Care Team Providers Care Showroom Executive Director Name Role Phone Beverly Day MD Primary Care Provider [phone] Reason for Referral * EXTERNAL (Routine) - Authorized/Booked Specialty Diagnoses / Procedures Referred By Contac t Referred To Contact Rheumatology Procedures REFERRAL TO RHEUMATOLOGY Beverly Day MD [address] [place] [address] [place]otson [address] [place] [address] Referral ID Status Reason Start Date Expiration Date V isits Requested Visits Authorized [id number] Authorized/B ooked 07/05/2021 11/18/2021 1 1 Reason for Visit * Reason Onset Date Comments Physician Ophthalmologist Feedback 07/05/2021 [facility] Rheumat ology Encounter Details Date Type Department Care Team Description 07/05/2021 Telephone Adult Medicine [address] [phone] Beverly Day MD [address] [place] [address] [phone] Physician Ophthalmologist Feedback ([facility] Rheumatology) Social History Tobacco Use Types Packs/Day Years [...] encounter Miscellaneous Notes * Telephone Encounter - Gale Uribe - 07/05/2021 10:[address] Day, Patient called would like a referral to Rheumatology the patient explained that th referral that was for Art Adilia they are scheduling appointments in December and the patient would like to havea new referral sent to [facility] Rheumatology in [place]. I have pended the referral and I hope you are able to sign it. Thank you, Gale Referrals Air Conditioning Installer Supervisor [facility] Please review this patients new referral request. The referral has been pended. Please complete thefollowing: If approved> sign order If denied>please give instructions and route to your practice nursing pool. Practice nurse should inform referrals and the patient if denied. documented in this encounter Plan of Treatment Not on file documented as of this encounter Visit Diagnoses Not on filedocumented in this encounter Care Teams Showroom Executive Director Relationship Specialty Start Date End Date Beverly Day MD [address] [place] [id number] PCP - General Internal Medicine 10/11/17 documented as of this encounter
--- OUTSIDE RECORDS SUMMARY | 2025-01-13 08:54 | XMS_ITS | Encounter Summary ---
Author Organization [facility] Address [address] [place] [address] Care Team Providers Care Hoisting Pile Driving Engineer Name Role Phone Beverly Day MD Primary Care Provider [phone] Encounter Details Date Type Department Care Team Description 05/26/2021 Old Medical Records Medical Records [address] [place] [address] Abstract, Provider Social History Tobacco Use Types [...] on filedocumented in this encounter Care Teams Hoisting Pile Driving Engineer Relationship Specialty Start Date End Date Beverly Day MD [address] [place] [address] [phone] PCP - General Internal Medicine 10/11/17 documented as of this encounter
--- OUTSIDE RECORDS SUMMARY | 2025-01-13 08:54 | XMS_ITS | Encounter Summary ---
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 Thank you Jaquelin Referral Banana Expert documented in this encounter Plan of Treatment Not on file documented as of this encounter Visit Diagnoses Not on filedocumented in this encounter Care Teams Vocational Technical Education Teacher Relationship Specialty Start Date End Date Beverly Day MD [address] [place] [address] PCP - General Internal Medicine 10/11/17 documented as of this encounter
--- OUTSIDE RECORDS SUMMARY | 2025-01-13 08:54 | XMS_ITS | Encounter Summary ---
Author Organization [facility] Address [facility] [address] [place], [place] [phone] Phone Care Team Providers Care Director Sales And Marketing Name Role Phone Beverly Day MD Primary Care Provider Reason for Referral * MRI/CAT Scan - Closed Specialty Diagnoses / Procedures Referred By Contac t Referred To Contact Radiology Diagnoses Pseudotumor Procedures MRI Angio Brain CHG MR ANGIO, HEAD, COMBO Tj Kang MD Phone: tel: fax: mailto: Referral ID Status Reason Start Date Expiration Date Visits Re quested Visits Authorized [id number] Closed 10/13/2021 04/11/2022 1 1 Encounter Details Date Type Department Care Team (Latest Contact Info) Description 10/13/2021 Transcribe Orders Virtual Department [address] [place] [address] Tj Kang MD [address] [place] [address], [address] [place] [address] [email or web address] Pseudotumor (Primary Dx) Social History Tobacco Use Types Packs/Day Years Used Date Smoking Tobacco: Never Assessed Comments Unknown Sex and Gender Information Value Date Recorded Sex Assigned at Female 04/01/2023 5:00 PM EST Legal Sex Female 3:43 PM EST Gender Identity Female 04/01/2023 5:00 PM EST Sexual Orientation Lesbian or Ibanez 08/25/2023 11 :19 PM EDT documented as of this encounter Plan of Treatment Not on file documented as of this encounter Results * MRI ANGIO BRAIN (VENOUS ONLY) WITH AND WITHOUT CONTRAST (11/04/2021 9:55 AM EDT) Anatomical Region Laterality Modality Head Magnetic Resonan ce 11/04/2021 4:15 PM EDT Impressions 11/04/2021 4:27 PM EDT 1.No evidence of venous sinus thrombosis. 2.Findings consistent with idiopathic intracranial hypertension, as evidenced by stenosis of the transverse-sigmoid sinus junctions, and multiple tissue shifts (described above) seen in this entity. Narrative 11/04/2021 4:27 PM EDT MRI ANGIO BRAIN (VENOUS ONLY) WITH AND WITHOUT CONTRAST TECHNIQUE: MRV of the head was performed both with and without contrast. Maximal intensity projection 3D angiographic reformatted images were performed. COMPARISON: MRI BRAIN WITH AND WITHOUT CONTRAST FINDINGS: MRV HEAD: Flow is demonstrated in the major dural venous sinuses and cortical veins. No thrombosis or occlusion. There is a stenosis of the transverse-sigmoid sinus junctions. Source Images: Finding of the bilateral posterior globes. Tortuosity of the bilateral optic nerve sheaths. Diminutive size of the pituitary gland for patient age/gender. Retention cyst in the right maxillary sinus. Procedure Note Samanta Anders MD - 11/04/2021 MRI ANGIO BRAIN (VENOUS ONLY) WITH AND WITHOUT CONTRAST TECHNIQUE: MRV of the head was performed both with and without contrast.Maximal intensity projection 3D angiographic reformatted images wereperformed. COMPARISON: MRI BRAIN WITH AND WITHOUT CONTRAST FINDINGS: MRV HEAD: Flow is demonstrated in the major dural venous sinuses and cortical veins.No thrombosis or occlusion. There is a stenosis of the transverse-sigmoidsinus junctions. Source Images: Finding of the bilateral posterior globes. Tortuosity ofthe bilateral optic nerve sheaths. Diminutive size of the pituitary glandfor patient age/gender. Retention cyst in the right maxillary sinus. IMPRESSION: 1.No evidence of venous sinus thrombosis. 2.Findings consistent with idiopathic intracranial hypertension, asevidenced by stenosis of the transverse-sigmoid sinus junctions, andmultiple tissue shifts (described above) seen in this entity. Tj Kang MD IMG MR HEAD/NECK Final Resul t documented in this encounter Visit Diagnoses Diagnosis Pseudotumor- Primary Pseudotumor documented in this encounter Additional Health Concerns Infection Onset Date Last Indicated Resolved Time COVID-19 02/05/2023 02/05/2023 02/26/2023 1:23 AM EDT documented as of this encounter Care Teams Director Sales And Marketing Relationship Specialty Start Date End Date Beverly Day MD [address] [place] [phone] PCP - General Internal Medicine 06/30/21 documented as of this encounter Additional Source Comments The information contained in this document represents components of the legal health record. It is not the complete legal health record.[facility]
--- OUTSIDE RECORDS SUMMARY | 2025-01-13 08:54 | XMS_ITS | Encounter Summary ---
Author Organization [facility] Address [address] [place] [address] Care Team Providers Care Naturalization Examiner Name Role Phone Beverly Day MD Primary Care Provider [phone] Reason for Visit * Reason Onset Date Comments My Chart Appointment 09/16/2020 Allergic Reaction 09/16/2020 Encounter Details Date Type Department Care Team Description 09/16/2020 Telephone Adult Medicine [address] [phone] Beverly Day MD [address] [place] [address] [phone] My Chart Appointment; Allergic Reaction Social History [...] better for her to be seen with UTILITY LINEMAN sothey could do urine testing and perform [...] should she be referred back to her glass furnace tender provider ? * Telephone Encounter - Melinda [...] on filedocumented in this encounter Care Teams Naturalization Examiner Relationship Specialty Start Date End Date Beverly Day MD [address] [place] [phone] PCP - General Internal Medicine 10/11/17 documented as of this encounter
--- OUTSIDE RECORDS SUMMARY | 2025-01-13 08:54 | XMS_ITS | Clinical Summary ---
Author Organization [address] Address [address] [place] [phone] Phone Care Team Providers Care Medical Researcher Name Role Phone Beverly Day MD Primary Care Provider [phone] Allergies Active Allergy Reactions Criticality Noted Date Comments Kiwi (Actinidia Chinensis) Other Swelling High 12/28/2020 Tree extract- Other Reaction(s): Hives/Urticaria Trees Penicillin G High 10/16/2017 Other Reaction(s): OTHER Patient with positive skin testing on allergy office visit on 02/19/18 Pollen Extracts 10/16/2017 Pork Extract 09/29/2020 Medications hydroxychloroq uine (PLAQUENIL) 200 mg tablet Take 1 tablet (200 mg total) by mouth 2 (two) times a day. Prescribed by senior it business analyst Active meloxicam (MOBIC) 15 mg tablet Take 1 tablet (15 mg total) by mouth 1 (one) time each day. Prescribed by senior it business analyst Active cetirizine (ZyrTEC) 10 mg tablet Take 1 tablet (10 mg total) by mouth 1 (one) time each day. PATIENT BUY OTC Active buPROPion XL (WELLBUTRIN XL) 300 mg 24 hr tablet Take 1 tablet (300 mg total) by mouth 1 (one) time each day. Do not crush, chew, or split. Prescribed by psychiatrist Active buPROPion XL (WELLBUTRIN XL) 150 mg 24 hr tablet Take 1 tablet (150 mg total) by mouth 1 (one) time each day. Do not crush, chew, or split. Prescribed by psychiatrist Active methotrexate (TREXALL) 10 mg tablet Take 10 tablets (100 mg total) by mouth 1 (one) time per week Follow directions carefully, and ask to explain any part you do not understand. Take exactly as directed. 50 mg morning and 50 mg afternoon. Proscribed by Flask Handler Active folic acid (FOLVITE) 1 mg tablet Take 5 tablets (5 mg total) by mouth 1 (one) time each day. Prescribed by Flask Handler Active methylPREDNISo lone (MEDROL) 4 mg tablet Take 6 tabs PO on day 1, 5 tabs PO on day 2, 4 tabs PO on day 3, 3 tabs PO on day 2, 2 tabs PO on day 5 and 1 tab PO on day 6. 21 tablet 5 Active Additional Information Patient not taking.Reported on 10/15/2024 EPINEPHrine (Auvi-Q) 0.3 mg/0.3 mL injection Inject 0.3 mL (0.3 mg total) under the skin if needed for anaphylaxis. 2 each 1 5 Active albuterol HFA (PROAIR HFA ; PROVENTIL HFA ; VENTOLIN HFA) 90 mcg/actuation inhaler Inhale 2 puffs by mouth every 4 (four) hours if needed for wheezing. 6.7 g 5 Active Active Problems Problem Noted Date Diagnosed Date Asthma 05/13/2024 Bilateral renal cysts 05/13/2024 Inflammatory arthritis 05/23/2022 Intracranial hypertension 12/21/2021 Overview (05/13/2024): Follows with neurology. Had nexplanon removed. Seronegative rheumatoid arth ritis ([facility] V24, [facility] V28) 04/15/2021 Overview (05/13/2024): Onset 2020. Hydroxychloroquine planned pending eye exam Vitamin D deficiency 10/04/2020 Acute urticaria 10/09/2019 Hyperlipidemia 05/20/2018 Perennial allergic conjunctivitis of both eyes 1 05/19/2017 Perennial allergic rhinitis 03/19/2018 Encounters Date Type Department Care Team Description 11/03/2024 9:00 AM EDT Treatment [address] [phone] Marcelo Carrington, PT Acute right-sided low back pain with left-sided sciatica (Primary Dx) 10/29/2024 9:00 AM EDT Treatment [address] [phone] Marcelo aCrrington, PT Acute right-sided low back pain with left-sided sciatica (Primary Dx) 10/22/2024 9:00 AM EDT Treatment [address] [phone] Pancho Henriquez, TRACK GREASER Acute right-sided low back pain with left-sided sciatica (Primary Dx) 10/20/2024 9:00 AM EDT Treatment [address] [phone] Arnie Navarro, TRACK GREASER Acute right-sided low back pain with left-sided sciatica (Primary Dx) 10/16/2024 9:00 AM EDT Treatment [address] [phone] Arnie Navarro, TRACK GREASER Acute right-sided low back pain with left-sided sciatica (Primary Dx) 10/15/2024 11:30 AM EDT Office Visit Adult Medicine [address] [phone] Beverly Day MD Seronegative rheumatoid arthritis (CMS/HCC V24, CMS/HCC V28) (Primary Dx); Other hyperlipidemia; Mild intermittent asthma, unspecified whether complicated; Morbid obesity (CMS/HCC V24, CMS/HCC V28) from Last 3 Months Immunizations Name Administration Dates Next Due Hepatitis B (Bgwdqkb-E-Rjsfb , Recombivax HB-Adult) 19yo and older 04/24/2018,11/21/2017,10/24/2017 [employer] SARS-CoV-2 COVID -19, vector-nr, rS-Ad26, preservative free 10/18/2020 Tdap Tetanus diptheria acell ular pertussis (Boostrix; Adacel) 7yo and older 11/21/2017 Surgical History Surgery Date Site/Laterality Comments OTHER SURGICAL HISTORY PROCEDURE: TOOTH ROOT REMOVAL Medical History Medical History Date Comments Asthma DX:Asthma Polycystic kidney disease, congenital DX:Polycystic kidney disease, congenital Bilateral renal cysts DX:Bilater al renal cysts Family History Medical History Relation Name Comments Asthma Brother Hypertension Father No Known Problems Maternal Grandfather Coronary artery disease Maternal Grandmother Dementia Maternal Grandmother Stroke Maternal Grandmother Asthma Mother Other: Other Mother TTP Diabetes Paternal Grandfather Hypertension Paternal Grandfather Asthma Sister Other: Other Sister congenital hear t disease - hole in heart. Relation Name Status Comments Brother Alive Father Alive Maternal Grandfather Alive Maternal Grandmother Alive Mother Alive Paternal Grandfather Alive Paternal Grandmother Alive Sister Alive Social History Tobacco Use Types Packs/Day Years Used Date Smoking Tobacco: Never Smokeless Tobacco: Never Tobacco Cessation:Counseling Given: Not Answered Alcohol Use Standard Drinks/Week Comments No 0 (1 standard drink = 0.6 oz pur e alcohol) Housing Instability Answer Date Recorde d Are you worried that in the next 2 months you may not have stable housing? No 09/01/2024 Food Access & Nutrition Answer Date Rec orded Do you have access to a vari ety of food including fruits and vegetables? Yes 09/01/2024 Access to Healthcare Answer Date Record ed Within the last 3 months, ho w many times did you visit the emergency department for your medical care? 2 09/01/2024 Health Literacy Answer Date Recorded How often do you need to hav e someone help you when you read instructions, pamphlets, or other written material from your doctor or pharmacy? Never 09/01/2024 Caregiver: How often do you need to have someone help you when you read instructions, pamphlets, or other written material from your doctor or pharmacy? Not on file 09/01/2024 Financial Risk Answer Date Recorded How hard is it for you to pa y for the very basics like food, housing, medical care, and air conditioning / heating? Somewhat hard 09/01/2024 Transportation Answer Date Recorded Has the lack of transportati on kept you from meetings, work, or from getting things needed for daily living? No Has the lack of transportati on kept you from medical appointments or from getting medications? No 09/01/2024 Social Isolation Answer Date Recorded How often do you feel lonely or isolated from th ose around you? Often 09/01/2024 Food Risk Answer Date Recorded Within the past 12 months we worried whether our food would run out before we got money to buy more. Never true 09/01/2024 Within the past 12 months th e food we bought just didn't last and we didn't have money to get more. Never true 09/01/2024 Dependent Care Answer Date Recorded Do you need help finding or paying for care for your loved ones. For example, early childhood associate teacher or elderly care for an older adult? No 09/01/2024 Education Answer Date Recorded Do you think completing more education or training, like finishing a GED, going to college, or learning a trade, would be helpful for you? Yes 09/01/2024 Employment and Income Answer Date Recor ded During the last four weeks, have you been actively looking for work? Yes 09/01/2024 Living Situation Answer Date Recorded What is your living situation? 0 09/01/2024 Comments No Sex and Gender Information Value Date Recorded Sex Assigned at Female 08/27/2024 5:36 PM EDT Legal Sex Female 2:40 AM EST Gender Identity Female 08/27/2024 5:36 PM EDT Sexual Orientation Bisexual 08/27/2024 5: 37 PM EDT Obstetrics History Last Filed Vital Signs Vital Sign Reading Time Taken Comments Blood Pressure 132/80 10/15/2024 11:22 AM EDT Pulse 74 10/15/2024 11:22 AM EDT Temperature 36.2 C (97.1 F) 10/15/2024 11:22 AM EDT Respiratory Rate 20 10/15/2024 11:22 AM EDT Oxygen Saturation 99% 09/23/2024 4:51 PM EDT Inhaled Oxygen Concentration - - Weight 121 kg (267 lb) 10/15/2024 11:22 AM EDT Height 162.6 cm (5' 4 ) 10/15/2024 11:22 AM EDT Body Mass Index 45.83 10/15/2024 11:22 AM EDT Plan of Treatment Upcoming Encounters Date Type Department Care Team (Late st Contact Info) Description 04/06/2025 9:00 AM EST Office Visit Adult Medicine [facility] [address] [place] [address] Beverly Day MD [address] [place] [address] Health Maintenance Due Date Last Done Comments Pneumococcal Vaccine: Pediatrics (0 to 5 Years) and At-Risk Patients (6 to 49 Years) (1 of 2 - PCV) 2012 Cervical Cancer Screening: P ap Smear 03/14/2020 03/14/2017 COVID-19 Vaccine (2 - Jansse n risk series) 11/15/2020 10/18/2020 Cholesterol Screening (Lipid Panel) 02/01/2024 01/31/2019 Influenza Vaccine (#1) 2025 Social Influencers of Health Screening 09/01/2025 09/01/2024 DTaP,Tdap,and Td Vaccines (2 - Td or Tdap) 11/22/2027 11/21/2017 Hepatitis B Vaccines Completed 04/24/2018, 11/21/2017, 10/24/2017 HIV Screening Completed 01/31/2019 Hepatitis C Screening Completed 03/25/2021 Depression Screening Completed 09/01/2024 HIB Vaccines Aged Out No longer eligi ble based on patient's age to complete this topic HPV Vaccines Aged Out No longer eligi ble based on patient's age to complete this topic Hepatitis A Vaccines Aged Out No long er eligible based on patient's age to complete this topic IPV Vaccines Aged Out No longer eligi ble based on patient's age to complete this topic MMR Vaccines Aged Out No longer eligi ble based on patient's age to complete this topic Meningococcal ACWY Vaccine Aged Out N o longer eligible based on patient's age to complete this topic Meningococcal B Vaccine Aged Out No l onger eligible based on patient's age to complete this topic RSV Immunization Patients Under 20 months Aged Out No longer eligible b ased on patient's age to complete this topic Varicella Vaccines Aged Out No longer eligible based on patient's age to complete this topic Goals Goal Patient Goal Type Associated Problems Recent Progress Patient-Stated? Author Feel better General Yes Marcelo Carrington M, PT PT STG x 8 visits inocente shepard on 515/25 General No Marcelo Carrington M, PT Note: [x] = completed goal [] = NOT completed goal [] Pt will improve lumbar flexion to 75 degrees to allow dressing LE without assist, [] Pt will report average pain level decrease of 2 /10, [] Pt will wake less than 1 a night due to back pain, [] Pt will increase sitting capacity to 60 minutes, [] Pt will require no UE support for sit to stand and car transfers [] Pt will report a 50% decrease in peripheral Sx. PT LTG x 16 [facility] from [facility] 09/25/24 General No Marcelo Carrington, PT Note: [x] = completed goal [] = NOT completed goal [] Pt will be able to sit through a 2 hr movie, [] Pt will wake less than 3 times a wk due to back pain , [] Pt will be able to negotiate stairs reciprocally without limitation due to back pain , [] Pt will be able to return to work Procedures Procedure Name Priority Date/Time Associated Diagnosis Comments HEPATITIS C SCREENING Routine 03/25/2021 HIV SCREENING Routine 01/31/2019 LIPID PANEL Routine 01/31/2019 PAP SMEAR Routine 03/14/2017 from Last 3 Months or Most Recently Relevant to Health Maintenance Results * Hepatitis C Screening (03/25/2021) Pathologist [facility] Hepatitis C Screening abstracted us Historical Provider HEALTH MAINTENANCE Final Result * HIV Screening (01/31/2019) [facility] HIV Screening abstracted us Historical Provider HEALTH MAINTENANCE Final Result * (ABNORMAL) Lipid panel (01/31/2019) [facility] LDL/HDL Ratio 5(A) 0 - 4 Triglycerides 112 0 - 150 mg/dL Cholesterol 198 0 - 200 mg/dL HDL 41 >=40 mg/dL LDL Cholesterol 135(A) 0 - 100 mg/dL Blood Venous blood specimen / Unknown Historical Provider LAB BLOOD ORDERABLES Prema l Result * Pap Smear (03/14/2017) Pap smear abstracted, no interpretation us Historical Provider HEALTH MAINTENANCE Final Result from Last 3 Months or Most Recently Relevant to Health Maintenance Insurance [facility] [employer] Care Teams Medical Researcher Relationship Specialty Start Date End Date Beverly Day MD [address] [place] [address] PCP - General Internal Medicine 09/09/24
--- OUTSIDE RECORDS SUMMARY | 2025-01-13 08:54 | XMS_ITS | Encounter Summary ---
Author Organization [facility] Address [address] [facility] [address] [place] [address] Phone Care Team Providers Care Radio Repairer Name Role Phone Beverly Day MD Primary Care Provider [phone] Encounter Details Date Type Department Care Team (Late st Contact Info) Description 10/07/2021 Ancillary Orders [facility],Outside Imaging [address] [place] [address] System, Provider Not In, [place] [address] Social History Tobacco Use Types Packs/Day Years [...] documented as of this encounter Results * CT Head Outside (No Interpretation) (10/23/2020 12:00 AM EDT) Narrative SYSTEMGENERATED, DOCUMENTATION - 10/07/2021 7:08 AM EDT This study is for PACS storage only and not for interpretation. us Provider Not In System PhD IMG OUTSIDE IMAGING W /OUT INTERPRETATION Final Result documented in this encounter Visit Diagnoses Not on filedocumented in this encounter Additional Health Concerns Infection Onset Date Last Indicated Resolved Time COVID-19 02/05/2023 02/05/2023 02/26/2023 1:23 AM EDT documented as of this encounter Care Teams Radio Repairer Relationship Specialty Start Date End Date Beverly Day MD [address] [place] [address] PCP - General Internal Medicine 06/30/21 documented as of this encounter Additional Source Comments The information contained in this document represents components of the legal health record. It is not the complete legal health record.[facility]
--- OUTSIDE RECORDS SUMMARY | 2025-01-13 08:54 | XMS_ITS | Encounter Summary ---
Author Organization [facility] Address [address] [place] [address] Care Team Providers Care Social Human Services Assistants Name Role Phone Beverly Day MD Primary Care Provider [phone] Reason for Visit * Reason Comments E-prescribe Rx Request Encounter Details Date Type Department Care Team Description 05/13/2020 Refill Orthopedics-[address] [phone] Ross Dorman PA-C E-prescribe Rx Request Social [...] on filedocumented in this encounter Care Teams Social Human Services Assistants Relationship Specialty Start Date End Date Beverly Day MD [address] [place] [phone] PCP - General Internal Medicine 10/11/17 documented as of this encounter
--- OUTSIDE RECORDS SUMMARY | 2025-01-13 08:54 | XMS_ITS | Encounter Summary ---
Author Organization [facility] Address [address] [place] [phone] Phone Care Team Providers Care Mercerizer Name Role Phone Beverly Day MD Primary Care Provider Encounter Details Date Type Department Care Team (Late st Contact Info) Description 10/13/2021 Procedure Pass [address] [place] [address] Social History Tobacco Use Types Packs/Day Years [...] documented as of this encounter Care Teams Mercerizer Relationship Specialty Start Date End Date Beverly Day MD [address] [place] [address] PCP - General Internal Medicine 06/30/21 documented as of this encounter Additional Source Comments The information contained in this document represents components of the legal health record. It is not the complete legal health record.[facility]
--- OUTSIDE RECORDS SUMMARY | 2025-01-13 08:54 | XMS_ITS | Encounter Summary ---
Author Organization [facility] Address [address] [place] [address] Care Team Providers Care Review Analyst Name Role Phone Beverly Day MD Primary Care Provider [phone] Encounter Details Date Type Department Care Team Description 02/27/2018 Dog Groomer Report Medical Records [address] [place] [phone] Abstract, Provider Social History Tobacco Use Types [...] on filedocumented in this encounter Care Teams Review Analyst Relationship Specialty Start Date End Date Beverly Day MD [address] [place] [phone] PCP - General Internal Medicine 10/11/17 documented as of this encounter
--- OUTSIDE RECORDS SUMMARY | 2025-01-13 08:54 | XMS_ITS | Encounter Summary ---
Author Organization [facility] Address [address] [place] [address] Care Team Providers Care Internet Sourcer Name Role Phone Beverly Day MD Primary Care Provider [phone] Encounter Details Date Type Department Care Team Description 06/21/2022 Plumbing Installer Report Medical Records [address] [place] [address] Edgar Pozo MD Social History Tobacco Use [...] on filedocumented in this encounter Care Teams Internet Sourcer Relationship Specialty Start Date End Date Beverly Day MD [address] [place] [phone] PCP - General Internal Medicine 10/11/17 documented as of this encounter
--- OUTSIDE RECORDS SUMMARY | 2025-01-13 08:54 | XMS_ITS | Encounter Summary ---
Author Organization [facility] Address [address] [place] [address] Care Team Providers Care Assistant Produce Manager Name Role Phone Beverly Day MD Primary Care Provider [phone] Encounter Details Date Type Department Care Team Description 05/01/2023 Cloth Shrinking Machine Operator Helper Report Medical Records [address] [place] [address] Edgar Pozo MD Social History Tobacco Use [...] on filedocumented in this encounter Care Teams Assistant Produce Manager Relationship Specialty Start Date End Date Beverly Day MD [address] [place] [phone] PCP - General Internal Medicine 10/11/17 documented as of this encounter
--- OUTSIDE RECORDS SUMMARY | 2025-01-13 08:54 | XMS_ITS | Encounter Summary ---
Author Organization [facility] Address [address] [place] [address] Care Team Providers Care Luggage Attendant Name Role Phone Beverly Day MD Primary Care Provider [phone] Reason for Visit * Reason Onset Date Comments Tinnitus 03/22/2020 Finger Problems 03/22/2020 refill request 03/22/2020 Encounter Details Date Type Department Care Team Description 03/22/2020 Telephone Adult Medicine [address] [phone] Beverly Day MD [address] [place] [address] [phone] Tinnitus; Finger Problems; refill request Social History [...] Duval R.N. - 03/22/2020 9:47 AM EST [phone] (home) [phone] (work) * Telephone Encounter - Heike Nancy [...] on filedocumented in this encounter Care Teams Luggage Attendant Relationship Specialty Start Date End Date Beverly Day MD [address] [place] [phone] PCP - General Internal Medicine 10/11/17 documented as of this encounter
--- OUTSIDE RECORDS SUMMARY | 2025-01-13 08:54 | XMS_ITS | Encounter Summary ---
Author Organization [facility] Address [address] [facility] [address] [place], [place] [phone] Phone Care Team Providers Care Boil Off Machine Operator Cloth Name Role Phone Beverly Day MD Primary Care Provider [phone] Encounter Details Date Type Department Care Team (Late st Contact Info) Description 09/27/2021 Procedure Pass [address] [place] [address] Social History Tobacco Use Types Packs/Day Years [...] documented as of this encounter Care Teams Boil Off Machine Operator Cloth Relationship Specialty Start Date End Date Beverly Day MD [address] [place] [address] PCP - General Internal Medicine 06/30/21 documented as of this encounter Additional Source Comments The information contained in this document represents components of the legal health record. It is not the complete legal health record.[facility]
--- OUTSIDE RECORDS SUMMARY | 2025-01-13 08:54 | XMS_ITS | Encounter Summary ---
Author Organization [facility] Address [address] [place] [address] Care Team Providers Care Junior Brand Manager Name Role Phone Beverly Day MD Primary Care Provider [phone] Encounter Details Date Type Department Care Team Description 10/01/2019 Refill Allergy [facility] [place] [address] [place] [phone] Billie Torres MD Social History Tobacco Use [...] on filedocumented in this encounter Care Teams Junior Brand Manager Relationship Specialty Start Date End Date Beverly Day MD [address] [place] [phone] PCP - General Internal Medicine 10/11/17 documented as of this encounter
--- OUTSIDE RECORDS SUMMARY | 2025-01-13 08:54 | XMS_ITS | Encounter Summary ---
Author Organization [facility] Address Formerly [facility] [employer] [facility] [address] [place] [phone] Phone Care Team Providers Care Car Installations Supervisor Name Role Phone Beverly Day MD Primary Care Provider [phone] Reason for Referral * MRI/CAT Scan - Closed Specialty Diagnoses / Procedures Referred By Contac t Referred To Contact Radiology Diagnoses Pseudotumor Papilledema Procedures MRI Brain CHG MRI BRAIN COMBO Tj Kang MD Phone: tel: fax: [email or web address] Referral ID Status Reason Start Date Expiration Date Visits Re quested Visits Authorized [id number] Closed 09/27/2021 03/26/2022 1 1 Encounter Details Date Type Department Care Team (Latest Contact Info) Description 09/27/2021 Transcribe Orders Virtual Department [address] [place] [id number] Tj Kang MD [address] [place] [address], [address] [place] [address] [email or web address] Pseudotumor (Primary Dx); Papilledema Social History Tobacco Use Types Packs/Day Years [...] as of this encounter Results * MRI BRAIN WITH AND WITHOUT CONTRAST (10/11/2021 3:31 PM EDT) Anatomical Region Laterality Modality Head Magnetic Resonan ce 10/11/2021 4:46 PM EDT Impressions 10/11/2021 5:04 PM EDT No \intracranial abnormalities. Optic nerves appear mildly thickened bilaterally which can be correlated clinically. Narrative 10/11/2021 5:04 PM EDT HISTORY: Possible optic nerve swelling on ocular exam, rheumatoid arthritis. COMPARISON: Outside CT brain and report from 10/23/2020. TECHNIQUE: Pre and post contrast sequences performed on a 1.5 Viv high field MRI scanner. FINDINGS: No evidence of intracranial hemorrhage, hematoma or mass. Schulte-white matter differentiation is preserved. No signs of acute infarction. No suspicious white matter signal abnormalities. No evidence of abnormal intracranial enhancement. The ventricles are midline and do not appear dilated. The basal cisterns are patent. There are normal flow voids at the base of the skull. The intraconal optic nerves appear mildly thickened bilaterally measuring approximately 7 mm in maximal diameter. No definite abnormal enhancement. The optic chiasm appears normal. Small retention cyst in the right maxillary sinus. The paranasal sinuses are otherwise clear. Procedure Note Rock Ham MD - 10/11/2021 HISTORY: Possible optic nerve swelling on ocular exam, rheumatoidarthritis. COMPARISON: Outside CT brain and report from 10/23/2020. TECHNIQUE: Pre and post contrast sequences performed on a 1.5 Viv highfield MRI scanner. FINDINGS: No evidence of intracranial hemorrhage, hematoma or mass. Schulte-whitematter differentiation is preserved. No signs of acute infarction. Nosuspicious white matter signal abnormalities. No evidence of abnormalintracranial enhancement. The ventricles are midline and do not appear dilated. The basal cisternsare patent. There are normal flow voids at the base of the skull. The intraconal optic nerves appear mildly thickened bilaterally measuringapproximately 7 mm in maximal diameter. No definite abnormal enhancement.The optic chiasm appears normal. Small retention cyst in the right maxillary sinus. The paranasal sinusesare otherwise clear. IMPRESSION: No \intracranial abnormalities. Optic nerves appear mildly thickenedbilaterally which can be correlated clinically. Tj Kang MD IMG MR HEAD/NECK Final Resul t documented in this encounter Visit Diagnoses Diagnosis Pseudotumor- Primary Papilledema Unspecified papilledema Pseudotumor Papilledema Unspecified papilledema documented in this encounter Additional Health Concerns Infection Onset Date Last Indicated Resolved Time COVID-19 02/05/2023 02/05/2023 02/26/2023 1:23 AM EDT documented as of this encounter Care Teams Car Installations Supervisor Relationship Specialty Start Date End Date Beverly Day MD [address] [place] [address] PCP - General Internal Medicine 06/30/21 documented as of this encounter Additional Source Comments The information contained in this document represents components of the legal health record. It is not the complete legal health record.[facility]
--- OUTSIDE RECORDS SUMMARY | 2025-01-13 08:55 | XMS_ITS | Clinical Summary ---
Author Organization [facility] Address [address] [place] [address] Care Team Providers Care Proof Plate Maker Name Role Phone Beverly Day MD Primary Care Provider [phone] Medications Medication Sig Dispensed Refills Start Date [...] (P ap Smear) 2014 Influenza Vaccine (#1) 2025 Pneumococcal Vaccine Aged Out No long er eligible based on patient's age to complete this topic RSV Ped < 20 months Aged Out No longe r eligible based on patient's age to complete this topic Care Teams Proof Plate Maker Relationship Specialty Start Date End Date Beverly Day MD PCP - General Internal Medicine 09/27/18
[2025-01-13 09:10] LABS: MANUAL DIFF FLAG NO
[2025-01-13 10:08] LABS: Hematocrit 37.3 % (37.0-47.0); Hemoglobin 11.8 g/dl (12.0-16.0); Imm Gran Abs Auto 0.01 X10*3/uL (0.00-0.03); Imm Gran Pct Auto 0.3 % (0.0-0.4); Lymphocytes Absolute Auto 1.4 X10*3/uL (1.2-4.9); Mean Corpuscular HGB Conc 31.6 g/dl (31.0-35.0); Mean Corpuscular Hemoglobin 28.2 pg (27.0-33.0); Mean Corpuscular Volume 89.2 fL (80.0-98.0); NRBC Abs Auto 0.000 X10*3/uL (0.0-0.012); NRBC Pct Auto 0.0 /100WBC (0.0-0.2); Platelet Count 290 X10*3/uL (160-400); Red Blood Count 4.18 X10*6/uL (4.20-5.50); White Blood Count 3.3 X10*3/uL (4.8-10.8)
[2025-01-13 10:34] LABS: Alanine Aminotransferase 30 U/L (0-31); Albumin Level 4.2 g/dL (3.5-5.0); Alkaline Phosphatase 50 U/L (39-117); Anion Gap 11 (12-20); Aspartate Amino Transferase 16 U/L (5-31); Blood Urea Nitrogen 22 mg/dL (9-16); Calcium 8.5 mg/dL (8.4-10.2); Carbon Dioxide 25 mmol/L (22-29); Chloride 108 mmol/L (96-108); Estimated Glomerular Filt Rate > 60; Potassium 4.1 mmol/L (3.3-5.1); Sodium 140 mmol/L (135-145); Total Protein 6.7 g/dL (6.5-8.0)
[2025-01-13 11:01] LABS: HBS Num1 38.33 mIU/mL (0-7.99); HBc Num1 0.04 S/CO (0.00-0.79); HBsAGNum1 0.64 S/CO (0.00-0.99); Hepatitis A Antibody IgM 0.22 Index (0-0.79); Hepatitis B Surface Antigen Negative (Negative); ~HepC Num1 0.09 S/CO (0.00-0.79); ~Hepatitis A Antibody IgM Nonreactive (Nonreactive); ~Hepatitis B Surface Antibody REACTIVE (Nonreactive); ~Hepatitis C Antibody Nonreactive (Nonreactive)
[2025-01-16 10:09] LABS: TS Negative Control Passed; TS Panel A 0; TS Panel B 0; TS Positive Control Passed; TSpotTB Negative (Negative)
[2025-01-16 17:18] LABS: HLA B27 Negative (Negative)
[2025-01-20 09:44] LABS: Anti Nuclear Antibody Pattern Nuclear, Speckled; Anti Nuclear Antibody Screen POSITIVE (NEGATIVE); Anti Nuclear Antibody Titer 1:40 titer
== END 2025-01-13 08:17 | disposition home or self-care (01) ==
LOC: HO.XRAY 08:16
PROVIDERS: PCP Internal Medicine; Visit Provider Student in an Organized Health Care Education/Training Program
DX: M06.00 Rheumatoid arthritis without rheumatoid factor, unspecified site (principal)
CPT/HCPCS: 36415; 73130; 73562; 80053; 85025; 85652; 86038; 86039; 86140; 86200; 86431; 86481; 86704; 86706; 86709; 86803; 86812; 87340

== ENCOUNTER → 2025-01-13 08:21 | Outpatient (BNV) | payer OTHER, SELFPAY | PROVIDERS: PCP Internal Medicine; Visit Provider Radiology Diagnostic Radiology | DX: M06.09 Rheumatoid arthritis without rheumatoid factor, multiple sites (principal) | CPT/HCPCS: 73130; 73562 ==

== ENCOUNTER 2025-01-14 08:02 | Outpatient (AMB) | payer OTHER, SELFPAY ==
--- NOTE | 2025-01-14 08:04 | A.OFFVIS_ITS ---
Vital Signs 01/14/25 08:10 Height 5 ft 4 in Weight 262 lb 9.129 oz BMI 45.1 BP 140/100 H Blood Pressure Location Lt brachial Position Sitting Pulse 68 Pulse Source Pulse Oximeter Pulse Oximetry (%) 99 Oxygen Delivery Method Room Air Intake Visit Reasons: RA Intake Note: Patient presents for RA follow up. Allergies Penicillins Allergy (Severe, Verified 01/14/25 08:09) Anaphylaxis Pork Allergy (Severe, Uncoded 08/26/24 13:13) Anaphylaxis Kiwi Allergy (Mild, Uncoded 08/26/24 13:13) Swelling Medication List - Last Reconciled 01/14/25 by Love Burgess MD albuterol sulfate 90 mcg/actuation (Ventolin HFA) inhalation bupropion HCl XL 300 mg PO DAILY bupropion HCl XL 150 mg PO QAM cetirizine (Allergy Relief (cetirizine)) 10 mg PO DAILY PRN cyclobenzaprine 10 mg PO TID folic acid 1 mg PO DAILY hydroxychloroquine 200 mg PO BID 90 days meloxicam 15 mg PO DAILY methotrexate sodium 25 mg (10 x 2.5 mg) PO QWEEK 90 days methylphenidate HCl 5 mg PO BID HPI Comments Details: Patient is a 29 y.o. female with asthma, hyperlipidemia history of intracranial hypertension and seronegative rheumatoid arthritis here today for follow up Interval History: Patient last seen 07/30/24 with me - On Hydroxychloroquine 200mg bid, Mtx 25mg PO weekly and folic acid - Doing well on the increased Mtx (04/2024) but continued to have swelling and joint pain - There was no synovitis on exam and so she was objectively evaluated with an MRI The MRI of her hands was normal No changes made to her medications Today - On Hydroxychloroquine 200mg bid, Mtx 25mg PO weekly and folic acid - Went on vacation recently to the [place], [place] - Still has prolonged AM stiffness in her hands Rheumatologic History: Seronegative rheumatoid arthritis hydroxychloroquine started fall 2020 - optic nerve swelling seen - ? ICH? Eye exam stable without toxicity evident May 2022. 07/2022: Methotrexate started Current Rheumatology Medication(s): Hydroxychloroquine 200 mg b.i.d. Methotrexate 25 mg weekly p.o. Folic acid 1 mg daily Meloxicam 15 mg p.r.n. [facility] Medical History care home current use of non-steroidal anti-inflammatories (NSAID) Flexor tenosynovitis of finger care home use of drug Flexor tenosynovitis of thumb Seronegative rheumatoid arthritis Surgical History H/O wisdom tooth extraction Family History Mother TTP (thrombotic thrombocytopenic purpura) Father Hypertension Social History Household Members: Significant Other Housing: House Are you a primary assisted living care manager to a significant other at home: No Do you presently have visiting nurse or other home services: No 75 years or older and lives alone: No Alcohol intake: current Alcohol intake frequency: a few times a month Alcohol type: beer and hard liquor e-Cigarette/Vaping Use: Never Used service: No Current occupational status: employed 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 [employer] Review of Systems Const Details: Review of Systems Constitutional: Denies fever, chills, weight loss ENT: Denies vision changes, eye pain or eye redness, dental caries, dry mouth GI: Denies nausea, vomiting, diarrhea, abdominal pain, change in BM Pulm: Denies SOB, CAVAZOS, hemoptysis, wheezing Cards: Denies chest pain, palpitations Skin: Denies Raynaud's, rash, nail changes, photosensitivity, LEASE PURCHASE TRUCK DRIVER: Denies headaches, weakness, paresthesias, recurrent falls MSK: as per HPI All other systems reviewed and are unremarkable except noted above Physical Exam Exam Exam: Vital signs reviewed Physical Examination CONSTITUITIONAL Patient alert and cooperative. Well appearing and in no apparent painful distress MSK Hands * Right Hand: Able to make a fist. There is some swelling of the MCPs but no tenderness to palpation of the MCPs, PIPs or DIPs. No deformities noted. * Left Hand: Able to make a fist. There is some swelling of the MCPs but no tenderness to palpation of the MCPs, PIPs or DIPs. No deformities noted. Wrists * Right Wrist: Full ROM to flexion and extension. No swelling or TTP * Left Wrist: Full ROM to flexion and extension. No swelling or TTP Elbows * Right Elbow: Full ROM. No swelling or TTP. No TTP of the medial epicondyle. No TTP of the lateral epicondyle * Left Elbow: Full ROM. No swelling or TTP. No TTP of the medial epicondyle. No TTP of the lateral epicondyle Shoulders * Right shoulder: Full ROM. No swelling noted. No TTP of the AC joint. No TTP of the subacromial bursa. No TTP of the posterior shoulder * Left shoulder: Full ROM. No swelling noted. No TTP of the AC joint. No TTP of the subacromial bursa. No TTP of the posterior shoulder Knees * Right knee: Full ROM. No swelling noted. No TTP of the knee joint line. No TTP of pes anserine bursa * Left knee: Full ROM. No swelling noted. No TTP of the knee joint line. No TTP of pes anserine bursa. * Crepitations felt bilaterally Ankles * Right ankle: Good ankle dorsiflexion and plantar flexion. No swelling. No TTP of the ankle joint * Left ankle: Good ankle dorsiflexion and plantar flexion. No swelling. No TTP of the ankle joint Feet * Right foot: Negative squeeze test * Left foot: Negative squeeze test Tender points? * No tenderness to palpation of the bilateral trapezius, supraspinatus, anterior costochondral junctions, bilateral suboccipital muscle insertions SKIN No rashes Vital Signs: Last Vital Signs Pulse 68 01/14/25 08:10 BP 140/100 H 01/14/25 08:10 Pulse Ox 99 01/14/25 08:10 Oxygen Delivery Method Room Air 01/14/25 08:10 BMI result Body Mass Index 45.1 Results Reviewed Results Reviewed: Laboratory Tests 07/26/24 01/13/25 10:41 09:08 WBC 3.3 L RBC 4.18 L Hgb 11.8 L Hct 37.3 Plt Count 290 ESR 7 Sodium 140 Potassium 4.1 Chloride 108 Carbon Dioxide 25 BUN 22 H Creatinine 0.96 AST 16 ALT 30 C-Reactive Protein 0.38 0.53 H Infectious serologies 04/24/24 01/13/25 12:08 09:08 Hepatitis A IgM Ab Nonreactive Hep Bs Antigen Negative Hep Bs Antibody REACTIVE Hep B Core Total Ab Nonreactive Hepatitis C Ab (EIA) Nonreactive TB Test (T-Spot) Com Negative Pending MR Right Hand 08/2024 Findings: The examination demonstrates no acute bony abnormalities. The joint spaces are normal. There is no evidence of bony erosion to suggest rheumatoid arthritis. The visualized muscles and tendons are unremarkable. Impression: No definite acute abnormalities. No signs of rheumatoid arthritis. XR Knee 01/2025 (my read) Bilateral patellofemoral OA with narrowing and osteophytes Preserved femoro-tibial space but some early subchondral sclerosis Assessment & Plan Assessment & Plan (1) Seronegative rheumatoid arthritis: Comment: hydroxychloroquine started fall 2020 - optic nerve swelling seen - ? ICH? Eye exam stable without toxicity evident May 2022. 07/2022: Methotrexate started 04/2024: Mtx dose increased Code(s): M06.00 - Rheumatoid arthritis without rheumatoid factor, unspecified site Category: Medical Plan: #Seronegative RA Patient is a 29-year-old female with seronegative rheumatoid arthritis here today for follow up. Based on her lab work and her examination it would appear that the patient is in low disease activity however her hands still are swollen and she still gets scattered joint pains to the body be continuing to have subclinical activity. Will add Enbrel Plan - Methotrexate 25mg PO weekly split dosing - Plaquenil 200mg bid daily - Folic acid 1mg daily - Meloxicam 15mg PO every other day - En - RTC 3 months - Labs before visit: CBC, CMP, ESR, CRP, hepatitis panel, T spot, RF, CCP, HLA B27, JUAN (2) care home current use of non-steroidal anti-inflammatories (NSAID): Code(s): Z79.1 - long term care phlebotomist (current) use of non-steroidal anti-inflammatories (NSAID) Category: Medical Plan: #Long-term Use of NSAIDs Discussed with patient the benefits and risk of NSAIDs for managing the rheumatic condition Benefits include: - Reduced the pain, improved mobility, and increased participation in activities Risks include: - GI upset, potential also worsening or formation (especially in patients > 65 years old) Recommended using proton pump inhibitors (PPIs) for the duration of NSAID use to reduce the risk of gastric ulcers (3) Encounter for monitoring of hydroxychloroquine therapy: Code(s): Z51.81 - Encounter for therapeutic drug level monitoring; Z79.899 - Other fdc (current) drug therapy Plan: #Long-term Use of Hydroxychloroquine Discussed with patient the risks and benefits of hydroxychloroquine in managing the rheumatic condition Benefits include: - Reduced pain, reduce mortality, maintenance of remission and reduction of flares Risks include: - GI upset, skin hyperpigmentation, retinal toxicity (especially after more than 5 years of use), myopathy Advised yearly ophthalmology visits Last ophthalmology visit: November 2022 (4) Encounter for methotrexate monitoring: Code(s): Z51.81 - Encounter for therapeutic drug level monitoring; Z79.631 - long term care phlebotomist (current) use of antimetabolite agent Plan: #Long-term Current Use of Methotrexate Discussed with patient the benefits and risks of methotrexate for managing their rheumatic condition Benefits include reduced pain, reduced mortality, maintenance of remission and reduction of flares Risks include oral ulcers, photosensitivity, hepatotoxicity, hematologic toxicity, pneumonitis, flu-like symptoms (especially day after administration), nodulosis, lymphomas ? Limit alcohol and avoid Bactrim ? Monitoring: ?CBC, BMP, LFTs every 3-4 months and hepatitis serologies as needed ? Methotrexate is teratogenic. Discussed with patient that patient should not g et while she is taking this medication. ?If planning need to discontinue 3 months prior to conception (5) Encounter for monitoring of etanercept therapy: Code(s): Z51.81 - Encounter for therapeutic drug level monitoring; Z79.620 - care home (current) use of immunosuppressive biologic Plan: #Long-term Use of TNF Inhibitors: Enbrel Discussed with the patient the benefits and risks of TNF inhibitors for the management of the rheumatic condition Benefits include reduce pain, maintenance of remission and reduction of flares as well as progression of the disease Risks include injection sites/infusion reactions, serious infections (such as bacterial infections, opportunistic infections), malignancy, delaminating syndromes, autoimmune phenomena, CHF exacerbations, palmar plantar psoriasis and cytopenias Recommended rotating injection sites, and holding medication during and for up to 1 week after resolution of a febrile illness or open skin wound Plan I spent 40 minutes reviewing the record and labs, taking a history, examining the patient, discussing the treatment plan, ordering diagnostic work up, PA for Enbrel and documenting in the medical record Coding Level of Care Code Est Pt Level 5 (57886) Complex EM visit Add On G2211 Diagnoses Seronegative rheumatoid arthritis M06.00 long term care phlebotomist current use of non-steroidal anti-inflammatories (NSAID) Z79.1 Encounter for monitoring of hydroxychloroquine therapy Z51.81; Z79.899 Encounter for methotrexate monitoring Z51.81; Z79.631 Encounter for monitoring of etanercept therapy Z51.81; Z79.620
[2025-01-14 08:10] VITALS: BP 140/100; PULSE 68; O2SAT 99; BMI 45.1
--- OUTSIDE RECORDS SUMMARY | 2025-01-14 08:15 | XMS_ITS | Encounter Summary ---
Author Organization [facility] Address [address] [place] [address] Care Team Providers Care Repairing Calibrator Name Role Phone Beverly Day MD Primary Care Provider [phone] Encounter Details Date Type Department Care Team Description 10/30/2017 Night Triage Doc Medical Records [address] [place] [id number] Abstract, Provider Social History Tobacco Use Types [...] on filedocumented in this encounter Care Teams Repairing Calibrator Relationship Specialty Start Date End Date Beverly Day MD [address] [place] [address] [id number] PCP - General Internal Medicine 10/11/17 documented as of this encounter
--- OUTSIDE RECORDS SUMMARY | 2025-01-14 08:15 | XMS_ITS | Encounter Summary ---
Author Organization [facility] Address [address] [place] [id number] Phone Care Team Providers Care Banquet Bartender Name Role Phone Beverly Day MD Primary Care Provider [phone] Encounter Details Date Type Department Care Team (Late st Contact Info) Description 10/13/2021 Procedure Pass [address] [place] [address] Social History Tobacco Use Types Packs/Day Years [...] documented as of this encounter Care Teams Banquet Bartender Relationship Specialty Start Date End Date Beverly Day MD [address] [place] [address] PCP - General Internal Medicine 06/30/21 documented as of this encounter Additional Source Comments The information contained in this document represents components of the legal health record. It is not the complete legal health record.[facility]
--- OUTSIDE RECORDS SUMMARY | 2025-01-14 08:16 | XMS_ITS | Clinical Summary ---
Author Organization [address] Address [address] [place] [phone] Phone Care Team Providers Care Junior Project Manager Name Role Phone Beverly Day MD Primary Care Provider [phone] Allergies Active Allergy Reactions Criticality Noted Date [...] 2 (two) times a day. Prescribed by pipe finishing supervisor Active meloxicam (MOBIC) 15 mg tablet Take 1 tablet (15 mg total) by mouth 1 (one) time each day. Prescribed by pipe finishing supervisor Active cetirizine (ZyrTEC) 10 mg tablet Take [...] morning and 50 mg afternoon. Proscribed by Build And Release Manager Active folic acid (FOLVITE) 1 mg tablet Take 5 tablets (5 mg total) by mouth 1 (one) time each day. Prescribed by Build And Release Manager Active methylPREDNISo lone (MEDROL) 4 mg tablet [...] Had nexplanon removed. Seronegative rheumatoid arth ritis ([facility] V24, [facility] V28) 04/15/2021 Overview (05/13/2024): Onset 2020. Hydroxychloroquine planned pending eye exam Vitamin D deficiency 10/04/2020 Acute urticaria 10/09/2019 Hyperlipidemia 05/20/2018 Perennial allergic conjunctivitis of both eyes 1 05/19/2017 Perennial allergic rhinitis 03/19/2018 Encounters Date Type Department Care Team Description 11/03/2024 9:00 AM EDT Treatment [address] [phone] Marcelo Carrington, PT Acute right-sided low back pain with left-sided sciatica (Primary Dx) 10/29/2024 9:00 AM EDT Treatment [address] [phone] Marcelo Carrington, PT Acute right-sided low back pain with left-sided sciatica (Primary Dx) 10/22/2024 9:00 AM EDT Treatment [address] [phone] Pancho Henriquez, SOFTWARE MAINTENANCE ENGINEER Acute right-sided low back pain with left-sided sciatica (Primary Dx) 10/20/2024 9:00 AM EDT Treatment [address] [phone] Arnie Navarro, SOFTWARE MAINTENANCE ENGINEER Acute right-sided low back pain with left-sided sciatica (Primary Dx) 10/16/2024 9:00 AM EDT Treatment [address] [phone] Arnie Navarro, SOFTWARE MAINTENANCE ENGINEER Acute right-sided low back pain with left-sided sciatica (Primary Dx) 10/15/2024 11:30 AM EDT Office Visit Adult Medicine [address] [phone] Beverly Day MD Seronegative rheumatoid arthritis (CMS/HCC V24, CMS/HCC V28) (Primary Dx); Other hyperlipidemia; Mild intermittent asthma, unspecified whether complicated; Morbid obesity (CMS/HCC V24, CMS/HCC V28) from Last 3 Months Immunizations Name Administration Dates Next Due Hepatitis B (Sgcgqex-Z-Ccjnt , Recombivax HB-Adult) 19yo and older 04/24/2018,11/21/2017,10/24/2017 [employer] SARS-CoV-2 COVID -19, vector-nr, rS-Ad26, preservative free [...] care for your loved ones. For example, children's nursery assistant or elderly care for an older adult? [...] 9:00 AM EST Office [place] [facility] [place] [address] [place] [phone] Beverly Day MD [address] [place] [address] Health Maintenance Due Date Last Done Comments [...] visits inocente shepard on 515/25 General No Mracelo Carrington M, PT Note: [x] = completed [...] Sx. PT LTG x 16 visits from [facility] 09/25/24 General No Marcelo Carrington, PT Note: [...] Results * Hepatitis C Screening (03/25/2021) Pathologist [facility] Hepatitis C Screening abstracted us Historical Provider HEALTH MAINTENANCE Final Result * HIV Screening (01/31/2019) [facility] HIV Screening abstracted us Historical Provider HEALTH MAINTENANCE Final Result * (ABNORMAL) Lipid panel (01/31/2019) [facility] LDL/HDL Ratio 5(A) 0 - 4 Triglycerides [...] Most Recently Relevant to Health Maintenance Insurance [facility] [employer] Care Teams Junior Project Manager Relationship Specialty Start Date End Date Beverly Day MD [address] [place] [address] PCP - General Internal Medicine 09/09/24
--- OUTSIDE RECORDS SUMMARY | 2025-01-14 08:16 | XMS_ITS | Encounter Summary ---
Author Organization [facility] Address [address] [facility] [address] [place], [place] [id number] Phone Care Team Providers Care Procurement Services Manager Name Role Phone Beverly Day MD Primary Care Provider [phone] Encounter Details Date Type Department Care Team (Late st Contact Info) Description 09/27/2021 Procedure Pass [address] [place] [address] Social History Tobacco Use Types Packs/Day Years [...] documented as of this encounter Care Teams Procurement Services Manager Relationship Specialty Start Date End Date Beverly Day MD [address] [place] [address] PCP - General Internal Medicine 06/30/21 documented as of this encounter Additional Source Comments The information contained in this document represents components of the legal health record. It is not the complete legal health record.[facility]
--- OUTSIDE RECORDS SUMMARY | 2025-01-14 08:16 | XMS_ITS | Encounter Summary ---
Author Organization [facility] Address [address] [place] [address] Care Team Providers Care Adult Manager Name Role Phone Beverly Day MD Primary Care Provider [phone] Reason for Visit * Reason Onset Date Comments TEST RESULTS 10/16/2017 result notes Encounter Details Date Type Department Care Team Description 10/16/2017 Telephone Adult Medicine [address] [address] Timmy Martin NP TEST RESULTS (result notes) [...] for patient to return call to ext [phone]. Please call pt and notify her that [...] on filedocumented in this encounter Care Teams Adult Manager Relationship Specialty Start Date End Date Beverly Day MD [address] [place] [address] PCP - General Internal Medicine 10/11/17 documented as of this encounter
--- OUTSIDE RECORDS SUMMARY | 2025-01-14 08:16 | XMS_ITS | Encounter Summary ---
Author Organization [facility] Address [address] [facility] [address] [place] [address] Phone Care Team Providers Care Capacity Planner Name Role Phone Beverly Day MD Primary Care Provider [phone] Encounter Details Date Type Department Care Team (Late st Contact Info) Description 10/07/2021 Ancillary Orders [facility],Outside Imaging [address] [place] [address] System, Provider Not In, [place] [address] Social History Tobacco Use Types Packs/Day Years [...] documented as of this encounter Care Teams Capacity Planner Relationship Specialty Start Date End Date Beverly Day MD [address] [place] [address] PCP - General Internal Medicine 06/30/21 documented as of this encounter Additional Source Comments The information contained in this document represents components of the legal health record. It is not the complete legal health record.[facility]
--- OUTSIDE RECORDS SUMMARY | 2025-01-14 08:16 | XMS_ITS | Encounter Summary ---
Author Organization [facility] Address [address] [place] [address] Care Team Providers Care Tool Machine Setup Operator Name Role Phone Beverly Day MD Primary Care Provider [phone] Encounter Details Date Type Department Care Team Description 10/18/2017 Release of Information Medical Records [address] [place] [address] Abstract, Provider Social History Tobacco Use Types [...] on filedocumented in this encounter Care Teams Tool Machine Setup Operator Relationship Specialty Start Date End Date Beverly Day MD [address] [place] [address] [phone] PCP - General Internal Medicine 10/11/17 documented as of this encounter
--- OUTSIDE RECORDS SUMMARY | 2025-01-14 08:17 | XMS_ITS | Encounter Summary ---
Author Organization [facility] Address [address] [place] [address] Care Team Providers Care Spectral Scientist Name Role Phone Beverly Day MD Primary Care Provider [phone] Encounter Details Date Type Department Care Team Description 11/09/2022 Technology Infusion Specialist Report Medical Records [address] [place] [address] Edgar Pozo MD Social History Tobacco Use [...] on filedocumented in this encounter Care Teams Spectral Scientist Relationship Specialty Start Date End Date Beverly Day MD [address] [place] [address] [phone] PCP - General Internal Medicine 10/11/17 documented as of this encounter
--- OUTSIDE RECORDS SUMMARY | 2025-01-14 08:17 | XMS_ITS | Encounter Summary ---
Author Organization [facility] Address [address] [place] [address] Care Team Providers Care Supervisor General Name Role Phone Beverly Day MD Primary Care Provider Encounter Details Date Type Department Care Team Description 05/01/2023 Franchise Consultant Report Medical Records [address] [place] [address] Edgar Pozo MD Social History Tobacco Use [...] filedocumented in this encounter Care Teams Supervisor General Relationship Specialty Start Date End Date Beverly Day MD [address] [place] [address] [phone] PCP - General Internal Medicine 10/11/17 documented as of this encounter
--- OUTSIDE RECORDS SUMMARY | 2025-01-14 08:17 | XMS_ITS | Encounter Summary ---
Author Organization [facility] Address [facility] [address] [place] [address] Phone Care Team Providers Care Learning And Development Director Name Role Phone Beverly Day MD Primary Care Provider [phone] Reason for Referral * MRI/CAT Scan - Closed Specialty Diagnoses / Procedures Referred By Contac t Referred To Contact Radiology Diagnoses Pseudotumor Papilledema Procedures MRI Brain CHG MRI BRAIN COMBO Tj Kang MD Phone: tel: fax: [email or web address] Referral ID Status Reason Start Date Expiration Date Visits Re quested Visits Authorized [id number] Closed 09/27/2021 03/26/2022 1 1 Encounter Details Date Type Department Care Team (Latest Contact Info) Description 09/27/2021 Transcribe Orders Virtual Department [address] [place] [address] Tj Kang MD [address] [place] [address], [address] [place] [address] [email or web address] Pseudotumor (Primary Dx); Papilledema Social History [...] documented as of this encounter Care Teams Learning And Development Director Relationship Specialty Start Date End Date Beverly Day MD [address] [place] [address] PCP - General Internal Medicine 06/30/21 documented as of this encounter Additional Source Comments The information contained in this document represents components of the legal health record. It is not the complete legal health record.[facility]
--- OUTSIDE RECORDS SUMMARY | 2025-01-14 08:17 | XMS_ITS | Encounter Summary ---
Author Organization [facility] Address [address] [place] [address] Care Team Providers Care Crane Mechanic Name Role Phone Beverly Day MD Primary Care Provider [phone] Encounter Details Date Type Department Care Team Description 07/25/2023 Orders Only Medical Records [address] [place] [address] Edgar Pooz MD Social History Tobacco Use Types Packs/Day [...] on filedocumented in this encounter Care Teams Crane Mechanic Relationship Specialty Start Date End Date Beverly Day MD [address] [place] [address] PCP - General Internal Medicine 10/11/17 documented as of this encounter
--- OUTSIDE RECORDS SUMMARY | 2025-01-14 08:17 | XMS_ITS | Encounter Summary ---
Author Organization [facility] Address [facility] [address] [place], [place] [phone] Phone Care Team Providers Care Mold Cooler Name Role Phone Beverly Day MD Primary Care Provider [phone] Reason for Referral * MRI/CAT Scan - Closed Specialty Diagnoses / Procedures Referred By Contac t Referred To Contact Radiology Diagnoses Pseudotumor Procedures MRI Angio Brain CHG MR ANGIO, HEAD, COMBO Tj Kang MD Phone: tel: fax: [email or web address] Referral ID Status Reason Start Date Expiration Date Visits Re quested Visits Authorized [id number] Closed 10/13/2021 04/11/2022 1 1 Encounter Details Date Type Department Care Team (Latest Contact Info) Description 10/13/2021 Transcribe Orders Virtual Department [address] [place] [address] Tj Kang MD [address] [place] [address], [address] [place] [address] [email or web address] Pseudotumor (Primary Dx) [...] documented as of this encounter Care Teams Mold Cooler Relationship Specialty Start Date End Date Beverly Day MD [address] [place] [address] PCP - General Internal Medicine 06/30/21 documented as of this encounter Additional Source Comments The information contained in this document represents components of the legal health record. It is not the complete legal health record.[facility]
--- OUTSIDE RECORDS SUMMARY | 2025-01-14 08:18 | XMS_ITS | Encounter Summary ---
Author Organization [facility] Address [address] [place] [address] Care Team Providers Care International Marketing Manager Name Role Phone Beverly Day MD Primary Care Provider [phone] Encounter Details Date Type Department Care Team Description 2021 Telephone OBGYN - [place] [address] [place] [address] Hayes Gallegos CNM [address] [place] [address] Social History Tobacco Use Types Packs/Day Years [...] on filedocumented in this encounter Care Teams International Marketing Manager Relationship Specialty Start Date End Date Beverly Day MD [address] [place] [address] PCP - General Internal Medicine 10/11/17 documented as of this encounter
--- OUTSIDE RECORDS SUMMARY | 2025-01-14 08:18 | XMS_ITS | Encounter Summary ---
Author Organization [facility] Address [address] [place] [address] Care Team Providers Care Sports Medicine Physician Name Role Phone Beverly Day MD Primary Care Provider [phone] Reason for Visit * Reason Onset Date Comments My Chart Appointment 09/16/2020 Allergic Reaction 09/16/2020 Encounter Details Date Type Department Care Team Description 09/16/2020 Telephone Adult Medicine [address] [phone] Beverly Day MD [address] [place] [address] [phone] My Chart Appointment; Allergic Reaction Social History [...] better for her to be seen with SENIOR CARE PROVIDER sothey could do urine testing and perform [...] should she be referred back to her user experience developer provider ? * Telephone Encounter - Melinda [...] on filedocumented in this encounter Care Teams Sports Medicine Physician Relationship Specialty Start Date End Date Beverly Day MD [address] [place] [address] PCP - General Internal Medicine 10/11/17 documented as of this encounter
--- OUTSIDE RECORDS SUMMARY | 2025-01-14 08:18 | XMS_ITS | Encounter Summary ---
Author Organization [facility] Address [address] [place] [address] Care Team Providers Care Rope Tow Operator Name Role Phone Beverly Day MD Primary Care Provider [phone] Encounter Details Date Type Department Care Team Description 08/17/2021 Contracting Support Specialist Report Medical Records [address] [place] [address] Edgar Pozo MD Social History Tobacco Use [...] on filedocumented in this encounter Care Teams Rope Tow Operator Relationship Specialty Start Date End Date Beverly Day MD [address] [place] [address] [phone] PCP - General Internal Medicine 10/11/17 documented as of this encounter
--- OUTSIDE RECORDS SUMMARY | 2025-01-14 08:18 | XMS_ITS | Encounter Summary ---
Author Organization [facility] Address [address] [place] [address] Care Team Providers Care Powder Truck Driver Name Role Phone Beverly Day MD Primary Care Provider [phone] Encounter Details Date Type Department Care Team Description 09/25/2020 Pt. 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 I need an appointment. documented in this encounter Plan of Treatment Not on file documented as of this encounter Visit Diagnoses Not on filedocumented in this encounter Care Teams Powder Truck Driver Relationship Specialty Start Date End Date Beveryl Day MD [address] [place] [address] PCP - General Internal Medicine 10/11/17 documented as of this encounter
--- OUTSIDE RECORDS SUMMARY | 2025-01-14 08:19 | XMS_ITS | Encounter Summary ---
Author Organization [facility] Address [address] [place] [address] Care Team Providers Care Steward/Stewardess Bath Name Role Phone Beverly Day MD Primary Care Provider [phone] Encounter Details Date Type Department Care Team Description 06/21/2022 Entertainment Production Professional Report Medical Records [address] [place] [address] Edgar Pozo MD Social History Tobacco Use [...] on filedocumented in this encounter Care Teams Steward/Stewardess Bath Relationship Specialty Start Date End Date Beverly Day MD [address] [place] [address] [phone] PCP - General Internal Medicine 10/11/17 documented as of this encounter
--- OUTSIDE RECORDS SUMMARY | 2025-01-14 08:19 | XMS_ITS | Encounter Summary ---
Author Organization [facility] Address [address] [place] [address] Care Team Providers Care Emergency Veterinary Assistant Name Role Phone Beverly Day MD Primary Care Provider [phone] Encounter Details Date Type Department Care Team Description 04/11/2022 Pt. Non Urgent Medical Question Adult Medicine [address] [phone] Lilly Benjamin PA [address] [place] [address] Social History Tobacco Use Types Packs/Day Years [...] filedocumented in this encounter Care Teams Emergency Veterinary Assistant Relationship Specialty Start Date End Date Beverly Day MD [address] [place] [address] PCP - General Internal Medicine 10/11/17 documented as of this encounter
--- OUTSIDE RECORDS SUMMARY | 2025-01-14 08:19 | XMS_ITS | Encounter Summary ---
Author Organization [facility] Address [address] [place] [address] Care Team Providers Care Instruction Dean Name Role Phone Beverly Day MD Primary Care Provider [phone] Encounter Details Date Type Department Care Team Description 05/26/2021 Old Medical Records Medical Records [address] [place] [address] Abstract, Provider Social History Tobacco Use Types [...] on filedocumented in this encounter Care Teams Instruction Dean Relationship Specialty Start Date End Date Beverly Day MD [address] [place] [address] [phone] PCP - General Internal Medicine 10/11/17 documented as of this encounter
--- OUTSIDE RECORDS SUMMARY | 2025-01-14 08:19 | XMS_ITS | Encounter Summary ---
Author Organization [facility] Address [address] [place] [address] Care Team Providers Care Sparmaker Name Role Phone Beverly Day MD Primary Care Provider [phone] Reason for Visit * Reason Comments E-prescribe Rx Request Encounter Details Date Type Department Care Team Description 05/13/2020 Refill Orthopedics-[address] [phone] Ross Dorman PA-C E-prescribe Rx Request Social [...] on filedocumented in this encounter Care Teams Sparmaker Relationship Specialty Start Date End Date Beverly Day MD [address] [place] [address] [phone] PCP - General Internal Medicine 10/11/17 documented as of this encounter
--- OUTSIDE RECORDS SUMMARY | 2025-01-14 08:19 | XMS_ITS | Encounter Summary ---
Author Organization [facility] Address [address] [place] [address] Care Team Providers Care Lunchroom Supervisor Name Role Phone Beverly Day MD Primary Care Provider [phone] Encounter Details Date Type Department Care Team Description 09/11/2020 Pt. Non Urgent Medical Question Allergy [place] [address] [place] [address] Billie Torres MD Social History Tobacco Use [...] on filedocumented in this encounter Care Teams Lunchroom Supervisor Relationship Specialty Start Date End Date Beverly Day MD [address] [place] [address] PCP - General Internal Medicine 10/11/17 documented as of this encounter
--- OUTSIDE RECORDS SUMMARY | 2025-01-14 08:20 | XMS_ITS | Encounter Summary ---
Author Organization [facility] Address [address] [place] [address] Care Team Providers Care Brusher Tender Name Role Phone Beverly Day MD Primary Care Provider [phone] Encounter Details Date Type Department Care Team Description 10/09/2018 Pet Sitter Report Medical Records [address] [place] [address] Abstract, Provider Social History Tobacco Use Types [...] on filedocumented in this encounter Care Teams Brusher Tender Relationship Specialty Start Date End Date Beverly Day MD [address] [place] [address] [phone] PCP - General Internal Medicine 10/11/17 documented as of this encounter
--- OUTSIDE RECORDS SUMMARY | 2025-01-14 08:20 | XMS_ITS | Encounter Summary ---
Author Organization [facility] Address [address] [place] [address] Care Team Providers Care Director Customer Name Role Phone Beverly Day MD Primary Care Provider [phone] Encounter Details Date Type Department Care Team Description 03/11/2019 Pt. Non Urgent Medical Question OBGYN - [place] [address] [place] [address] [phone] Tanner Overton MD [address] [place] [address] [phone] Social History Tobacco Use Types Packs/Day Years [...] filedocumented in this encounter Care Teams Director Customer Relationship Specialty Start Date End Date Beverly Day MD [address] [place] [address] PCP - General Internal Medicine 10/11/17 documented as of this encounter
--- OUTSIDE RECORDS SUMMARY | 2025-01-14 08:20 | XMS_ITS | Encounter Summary ---
Author Organization [facility] Address [address] [place] [address] Care Team Providers Care Supervisor Mapping Name Role Phone Beverly Day MD Primary Care Provider [phone] Reason for Visit * Reason Onset Date Comments Clearance Center Manager Feedback 03/29/2020 Orthopedics Encounter Details Date Type Department Care Team Description 03/29/2020 Telephone Adult Medicine [address] [address] Lavonne Jay PA-C Clearance Center Manager Feedback (Orthopedics) Social History Tobacco Use Types [...] imaging being completed. Thank you Jaquelin Referral Craps Dealer documented in this encounter Plan of Treatment Not on file documented as of this encounter Visit Diagnoses Not on filedocumented in this encounter Care Teams Supervisor Mapping Relationship Specialty Start Date End Date Beverly Day MD [address] [place] [address] PCP - General Internal Medicine 10/11/17 documented as of this encounter
--- OUTSIDE RECORDS SUMMARY | 2025-01-14 08:20 | XMS_ITS | Clinical Summary ---
Author Organization [facility] Address [address] [place] [address] Care Team Providers Care Mosaic Floor Layer Name Role Phone Beverly Day MD Primary Care Provider [phone] Medications Medication Sig Dispensed Refills Start Date [...] age to complete this topic Care Teams Mosaic Floor Layer Relationship Specialty Start Date End Date Beverly Day MD PCP - General Internal Medicine 09/27/18
--- OUTSIDE RECORDS SUMMARY | 2025-01-14 08:20 | XMS_ITS | Encounter Summary ---
Author Organization [facility] Address [address] [place] [address] Care Team Providers Care Internal Revenue Agent Name Role Phone Beverly Day MD Primary Care Provider [phone] Encounter Details Date Type Department Care Team Description 09/27/2019 Refill Allergy [place] [address] [place] [phone] Billie Torres MD Social History Tobacco Use [...] * Telephone Encounter - Carie Mcmullen - 09/29/2019 3:21 PM EDT Left message to call and schedule appointment documented in this encounter Plan of Treatment Not on file documented as of this encounter Visit Diagnoses Not on filedocumented in this encounter Care Teams Internal Revenue Agent Relationship Specialty Start Date End Date Beverly Day MD [address] [place] [address] [phone] PCP - General Internal Medicine 10/11/17 documented as of this encounter
== END 2025-01-14 08:48 | disposition home or self-care (01) ==
LOC: HO.RHES 08:02
PROVIDERS: PCP Internal Medicine; Visit Provider Student in an Organized Health Care Education/Training Program
DX: M06.09 Rheumatoid arthritis without rheumatoid factor, multiple sites (principal); Z79.1 Long term (current) use of non-steroidal anti-inflammatories (NSAID); Z51.81 Encounter for therapeutic drug level monitoring; Z79.899 Other long term (current) drug therapy; Z79.631 Long term (current) use of antimetabolite agent; Z79.620 Long term (current) use of immunosuppressive biologic
CPT/HCPCS: 99215

== ENCOUNTER → 2025-01-14 08:02 | Outpatient (BNVA) | payer OTHER, SELFPAY | PROVIDERS: PCP Internal Medicine; Visit Provider Student in an Organized Health Care Education/Training Program | DX: M06.09 Rheumatoid arthritis without rheumatoid factor, multiple sites (principal); Z51.81 Encounter for therapeutic drug level monitoring; Z79.899 Other long term (current) drug therapy; Z79.631 Long term (current) use of antimetabolite agent | CPT/HCPCS: 99212 ==